=== PATIENT | female | born 1935 | race Caucasian/White ===

== ENCOUNTER 2020-03-26 09:10 | Outpatient (CLI) | payer MEDICARE, OTHER, SELFPAY ==
--- NOTE | 2020-03-26 09:23 | CT_ITS ---
WS: [id number] CT ABDOMEN PELVIS TECHNIQUE: Contrast-enhanced CT of the abdomen and pelvis with coronal and sagittal reformatted image s. CLINICAL INFORMATION: CONSTIPATION/DIARRHEA COMPARISON: DLP: 1754.[address] scans at [facility] use at least one of these dose optimization techniques: automat ed exposure control; mA and/or kV adjustment per patient size (includes targeted exams where dose is matched to clinical indication); or iterative reconstruction. FINDINGS: Liver is normal. Normal portal vein and splenic vein. Normal spleen. Normal GE junction. Subsegmental atelectasis in the lung bases. Splenic artery calcification. Aortic calcification. Adrenal glands ar e normal. Advanced bilateral renal atrophy with bilateral renal cysts. No hydronephrosis. Normal caliber abdominal aorta. No aneurysm. Sigmoid diverticulosis. Scattered stool in the colon. No evidence of small or large bowel obstruction. No free fluid in the abdomen or pelvis. No inguinal ly mphadenopathy. Grade 1 anterolisthesis L5 on S1. Moderate spondylitic changes lumbar spine. Lumbar scoliosis convex left. Advanced degenerative changes right hip with flattening and erosion of the femoral head. CT/CT abdomen pelvis w con* [id number] IMPRESSION: 1. No acute abdominal or pelvic findings. 2. Advanced bilateral renal cortical atrophy with renal cysts. Largest renal c yst in the right measuring 3.1 cm. 3. Sigmoid diverticulosis. No evidence of acute diverticulitis. 4. No abdominal or pelvic lymphadenopathy. 5. No free fluid in the abdomen or pelvis. 6. 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
[2020-03-26] MEDS: iohexol 300 mg/mL 50 mL Btl PO (09:37)
[2020-03-26 10:16] LABS: Blood Urea Nitrogen 33 mg/dL (8-23)
[2020-03-26] MEDS: iodixanol 320 mg/mL 100mL Btl IV (11:57)
== END 2020-03-26 09:11 | disposition home or self-care (01) ==
PROVIDERS: Family Provider Internal Medicine; Visit Provider Internal Medicine Nephrology
DX: K59.00 Constipation, unspecified (principal); R19.7 Diarrhea, unspecified; N26.1 Atrophy of kidney (terminal); Q61.02 Congenital multiple renal cysts; K57.30 Diverticulosis of large intestine without perforation or abscess without bleeding; M16.11 Unilateral primary osteoarthritis, right hip; M85.88 Other specified disorders of bone density and structure, other site
CPT/HCPCS: 36415; 74177; 82565; 84520

== ENCOUNTER 2020-05-18 19:38 | Inpatient (IN) | payer MEDICARE, OTHER, MEDICAID, SELFPAY ==
[2020-05-18 19:44] VITALS: BP 192/95; PULSE 104; RESP 20; TEMP 37.7; O2SAT 89; BMI 39.8
--- NOTE | 2020-05-18 19:44 | XRR_ITS ---
PROCEDURE INFORMATION: Exam: XR Chest, 1 View Exam date and time: 05/18/2020 8:14 PM Age: 84 years old Clinical indication: Chest pain; Patient HX: Chest/abd pain. Nausea; Additional info: Fever TECHNIQUE: Imaging protocol: XR of the chest Views: 1 view. COMPARISON: CR Chest 1 [place] [id number] 02/08/2019 7:33 PM FINDINGS: Lungs: No focal consolidation. No pulmonary edema. Pleural space: No pleural effusion. No pneumothorax. Heart/Mediastinum: Stable moderate enlargement of the cardiac silhouette. Mediastinal contours are unremarkable. Vasculature: Vascular calcifications in the aorta. Bones/joints: Unremarkable for age. Soft tissues: Vascular stents in the visualized right upper arm extending to the right axilla and in the left axilla are redemonstrated. XR/XR chest 1V portable [id number] IMPRESSION: 1. No acute cardiopulmonary process. 2. Incidental/nonacute findings are listed in the report.
--- NOTE | 2020-05-18 19:46 | ED_ITS ---
HPI - Abdominal Pain General: Chief Complaint: Abdominal Pain Stated Complaint: FLU Time Seen by Provider: 05/18/20 19:40 Source: patient and EMS Mode of arrival: EMS Limitations: no limitations History of Present Illness: HPI narrative: 84-year-old female who presents here from long term with fever of 100 there along with abdominal pain. She states she had diverticulitis 1 month ago. States pain started today and is sharp in nature and diffuse. She does not make any urine. She goes to dialysis Monday. She did have dialysis today. She denies any cough. MD elicited complaint: abdominal pain Onset (ago): hour(s) Pain Consistency: constant Location: Diffuse Severity: moderate Quality: cramping Radiation: none Migration to: no migration Exacerbating factors: movement Relieving factors: rest Associated Symptoms: Reports fever(s); Denies dysuria Review of Systems Const: Reports: fever(s) Eyes: Denies: blurry vision or eye discomfort ENMT: Denies: throat pain or dental pain Card: Denies: chest pain Resp: Denies: dyspnea GI: Reports: abdominal pain : Denies: dysuria Musc: Denies: neck pain or back pain Skin/Breast: Denies: rash Neuro: Denies: headache(s) Psych: Denies: depression Jefferson/Lymph: Denies: easy bruising All/Imm: Denies: urticaria Physical Exam Const: COMMON NORMALS: no acute distress, patient oriented x3 and healthy appearing HENMT: COMMON NORMALS: normocephalic and atraumatic HEAD & SCALP: normocephalic and atraumatic Eye: COMMON NORMALS: Equal, round and reactive pupils present and EOMs intact bilaterally PUPIL: Yes Equal, round and reactive pupils present Neck/C-Spine: COMMON NORMALS: full ROM and supple Chest: COMMONS NORMALS: normal inspection of the chest and normal palpation of entire chest wall Resp: COMMON NORMALS: normal respiratory effort, No retractions, No use of accessory muscles and clear to auscultation bilaterally AUSCULTATION: clear to auscultation bilaterally Cardio: COMMON NORMALS: regular rate, regular rhythm and No murmurs present (Cardio) RATE: regular rate RHYTHM: regular rhythm GI: COMMON NORMALS: Normal to inspection, nondistended, normoactive bowel sounds present, Soft to palpation and no masses PALPATION: Yes Soft to palpation and Yes Tenderness to palpation present (GI) (diffuse) Extremity: COMMON NORMALS: normal to inspection and full ROM Neuro: COMMON NORMALS: patient oriented x3, moves all extremities and no focal motor deficits Psych: COMMON NORMALS: mental status grossly normal, Normal thought process present and cooperative THOUGHT PROCESS: Normal thought process present Skin: COMMON NORMALS: no rashes or lesions noted and no wounds GENERAL SKIN EXAM: no rashes or lesions noted Course Vital Signs: Vital signs: Vital Signs Temperature 99.8 F H 05/18/20 19:44 Pulse Rate 80 05/18/20 22:31 Respiratory Rate 19 H 05/18/20 22:31 Blood Pressure 193/80 05/18/20 22:31 Pulse Oximetry 92 05/18/20 22:31 MDM - Abdominal Pain MDM Narrative: Medical decision making narrative: Patient presents here with fever abdominal pain or shortness of breath. Patient CT abdomen here is normal. Patient has a pleural effusions on x-ray. Patient has been requiring oxygen here. Patient's room air sat is 88%. Patient did receive dialysis today. Her BNP is quite elevated. She has history of end-stage renal disease. I spoke to hospitalist will admit for her fever and follow blood cultures. Lab Data: Labs: Lab Results 05/18/20 05/18/20 05/18/20 Range/Units 20:00 20:08 20:08 WBC 10.4 H (4.0-10.0) 10^3/ uL RBC 3.16 L (4.1-5.3) 10^6/u L Hgb 9.4 L (11.5-15.3) g/dL Hct 30.6 L (37.0-47.0) % MCV 96.8 (81-99) fL MCH 29.7 (28.0-34.0) pg MCHC 30.7 (30.0-36.0) g/dL RDW 15.9 H (12.1-15.1) % Plt Count 305 (130-400) 10^3/c mm MPV 10.0 (7.4-10.4) fL Neut % (Auto) 83.0 % Lymph % (Auto) 8.4 % Treasure % (Auto) 6.7 % Eos % (Auto) 0.8 % Baso % (Auto) 0.3 % Neut # (Auto) 8.65 H (1.8-7.7) 10^3/u L Lymph # (Auto) 0.9 (0.8-4.8) 10^3/u L Treasure # (Auto) 0.7 (0.2-0.9) 10^3/u L Eos # (Auto) 0.1 (0.0-0.8) 10^3/u L Baso # (Auto) 0.0 (0.0-0.1) 10^3/u L Nucleated RBC % (a uto) 0 % Nucleated RBCs # 0.0 /100WBC Sodium 136 (136-145) mmol/L Potassium 4.5 (3.5-5.1) mmol/L Chloride 94 L (98-107) mmol/L Carbon Dioxide 28 (22-29) mmol/L Anion Gap 18.5 (5-19) BUN 24 H (8-23) mg/dL Creatinine 4.0 H (0.5-0.9) mg/dL GFR Calculation Not Reportable Glucose 112 (65-115) mg/dL Calculated Osmolal ity 280 L (285-295) mOsm/k g Lactate 1.2 (0.5-2.2) mmol/L Calcium 8.8 (8.5-10.5) mg/dL Total Bilirubin 0.9 (0.15-1.2) mg/dL AST 12 (0-32) U/L ALT 6 (0-33) U/L Alkaline Phosphata se 101 (35-105) IU/L NT-Pro-B Natriuret Pep 11771 H (0-450) pg/mL Total Protein 7.2 (6.6-8.7) g/dL Albumin 3.9 (3.5-5.2) g/dL Globulin 3.3 (1.3-4.6) g/dL Lipase 36 (13-60) U/L SARS-CoV-2 Ag (Rap id) (Negative) 05/18/20 Range/Units 21:06 WBC (4.0-10.0) 10^3/ uL RBC (4.1-5.3) 10^6/u L Hgb (11.5-15.3) g/dL Hct (37.0-47.0) % MCV (81-99) fL MCH (28.0-34.0) pg MCHC (30.0-36.0) g/dL RDW (12.1-15.1) % Plt Count (130-400) 10^3/c mm MPV (7.4-10.4) fL Neut % (Auto) % Lymph % (Auto) % Treasure % (Auto) % Eos % (Auto) % Baso % (Auto) % Neut # (Auto) (1.8-7.7) 10^3/u L Lymph # (Auto) (0.8-4.8) 10^3/u L Treasure # (Auto) (0.2-0.9) 10^3/u L Eos # (Auto) (0.0-0.8) 10^3/u L Baso # (Auto) (0.0-0.1) 10^3/u L Nucleated RBC % (a uto) % Nucleated RBCs # /100WBC Sodium (136-145) mmol/L Potassium (3.5-5.1) mmol/L Chloride (98-107) mmol/L Carbon Dioxide (22-29) mmol/L Anion Gap (5-19) BUN (8-23) mg/dL Creatinine (0.5-0.9) mg/dL GFR Calculation Glucose (65-115) mg/dL Calculated Osmolal ity (285-295) mOsm/k g Lactate (0.5-2.2) mmol/L Calcium (8.5-10.5) mg/dL Total Bilirubin (0.15-1.2) mg/dL AST (0-32) U/L ALT (0-33) U/L Alkaline Phosphata se (35-105) IU/L NT-Pro-B Natriuret Pep (0-450) pg/mL Total Protein (6.6-8.7) g/dL Albumin (3.5-5.2) g/dL Globulin (1.3-4.6) g/dL Lipase (13-60) U/L SARS-CoV-2 Ag (Rap id) Negative (Negative) Imaging Data ^: CXR: Attestation: I personally reviewed and interpreted this imaging study as follows: My impression: no acute abnormality CT Abd/Pel: Radiologist's impression: [address] [place] [address] CT Scan Report Signed Patient: Dacia Kc Unit #: [id number] : [id number] Age/Sex: 84 / F ADM Date: 05/18/20 Loc: ER Room/Bed: Attending Dr: Ordering Provider/Ordering MD: Darline Coleman MD Date of Service: 05/18/20 Procedure(s): CT abdomen pelvis wo con [id number] Accession Number(s): [id number] Report Number: [id number] PROCEDURE INFORMATION: Exam: CT Abdomen And Pelvis Without Contrast Exam date and time: 05/18/2020 7:57 PM Age: 84 years old Clinical indication: Abdominal pain; Generalized; Prior surgery; Surgery date: 6+ months; Surgery type: Hyst, appy, gb; Patient HX: Nh dialysis PT C/O abd pain , fever, nausea TECHNIQUE: Imaging protocol: Computed tomography of the abdomen and pelvis without contrast. Radiation optimization: All CT scans at this facility use at least one of these dose optimization techniques: automated exposure control; mA and/or kV adjustment per patient size (includes targeted exams where dose is matched to clinical indication); or iterative reconstruction. COMPARISON: CT abdomen pelvis w con* [id number] 03/26/2020 11:32 AM RADIATION DOSE METRICS: Total DLP (mGy-cm): 1713.22 FINDINGS: Lungs: Compressive atelectasis in the the right and left lower lobes. Pleural space: Interval development of a small right pleural effusion and a trace left pleural effusion. Heart: Stable moderate enlargement of the visualized portions of the heart. Liver: The liver is unremarkable. Gallbladder and bile ducts: Stable findings consistent with a previous cholecystectomy. No biliary ductal dilatation. Pancreas: The pancreas is unremarkable. No pancreatic ductal dilatation. Spleen: The spleen is unremarkable. Adrenals: The right and left adrenal glands are unremarkable. Kidneys and ureters: Stable severe bilateral renal atrophy. Simple cysts in both right and left kidneys are stable. The largest on the right measures 3.3 cm. The largest on the left measures 2.0 cm. Parenchymal calcifications in the left kidney are stable. The right and left ureters are unremarkable. Stomach and bowel: Numerous diverticula in the sigmoid colon. No evidence for diverticulitis. Fluid within the small bowel without evidence of bowel wall thickening. Appendix: Appendix not definitely visualized. No inflammatory changes in the pericecal region however. Intraperitoneal space: No free intraperitoneal air. No ascites. No loculated fluid collections to suggest an abscess. Vasculature: Moderate atherosclerotic changes in the visualized arteries. No evidence for aortic aneurysm. Lymph nodes: No lymphadenopathy. Bladder: The bladder is incompletely filled, which can limit evaluation. No focal abnormality in the bladder however. Reproductive: Stable changes consistent with a previous hysterectomy. The ovaries are not definitely visualized, not an expected in a postmenopausal female. This may be due to ovarian atrophy. Alternatively, the patient may have had a previous bilateral oophorectomy. Findings are stable. Bones/joints: Bones are markedly osteopenic. Complete bony resorption of the right humeral head with a pseudoarticulation between the superior right acetabulum in the right femoral neck. Small effusion at the right hip joint. Mild degenerative change at the left hip. Mild degenerative changes of the right and left sacroiliac joints. Multilevel degenerative changes of varying severity in the visualized spine. Old, moderate compression deformity of T11. Multilevel degenerative changes of varying severity in the visualized spine. Multilevel foraminal stenosis of varying severity in the visualized spine. Mild spinal canal stenosis at L2-L3 through L4-L5. Osseous findings are stable. Soft tissues: No acute abnormality in the extra-abdominal soft tissues. CT/CT abdomen pelvis wo con [id number] IMPRESSION: 1. Fluid within the small bowel without evidence of bowel wall thickening. This may reflect viral gastroenteritis in the appropriate clinical situation. 2. Interval development of a small right pleural effusion and a trace left pleural effusion. 3. Compressive atelectasis in the the right and left lower lobes. 4. Stable severe bilateral renal atrophy. 5. Sigmoid diverticulosis. No evidence for diverticulitis. 6. Incidental/nonacute findings are listed in the report. Discharge Plan Discharge Patient Disposition: Admitted As Inpatient Clinical Impression: Pleural effusion, Fever, ESRD (end stage renal disease) on dialysis Condition: Stable Referrals: Char Parikh MD [Primary Care Provider] - Coding Level of Care Code ED Environmental Health Nurse for g Fwd Exam Comprehensive
[2020-05-18 20:09] LABS: Basophils % 0.3 %; Eosinophils # 0.1 10^3/uL (0.0-0.8); Eosinophils % 0.8 %; Hematocrit 30.6 % (37.0-47.0); Hemoglobin 9.4 g/dL (11.5-15.3); Lymphocytes # 0.9 10^3/uL (0.8-4.8); Lymphocytes % 8.4 %; Mean Corpuscular HGB Conc 30.7 g/dL (30.0-36.0); Mean Corpuscular Hemoglobin 29.7 pg (28.0-34.0); Mean Corpuscular Volume 96.8 fL (81-99); Monocytes # 0.7 10^3/uL (0.2-0.9); Monocytes % 6.7 %; Neutrophils # 8.65 10^3/uL (1.8-7.7); Nucleated Red Blood Cells % 0 %; Platelet Count 305 10^3/cmm (130-400); Red Blood Count 3.16 10^6/uL (4.1-5.3); Red Cell Distribution Width 15.9 % (12.1-15.1); White Blood Count 10.4 10^3/uL (4.0-10.0)
[2020-05-18 20:31] LABS: Lactate (Lactic Acid level) 1.2 mmol/L (0.5-2.2)
--- NOTE | 2020-05-18 20:41 | PC.NURSE ---
Pt to CT
[2020-05-18 20:42] LABS: Alanine Aminotransferase 6 U/L (0-33); Albumin Level 3.9 g/dL (3.5-5.2); Alkaline Phosphatase 101 IU/L (35-105); Anion Gap 18.5 (5-19); Aspartate Amino Transferase 12 U/L (0-32); Blood Urea Nitrogen 24 mg/dL (8-23); Calcium 8.8 mg/dL (8.5-10.5); Carbon Dioxide 28 mmol/L (22-29); Chloride 94 mmol/L (98-107); Globulin 3.3 g/dL (1.3-4.6); Glucose 112 mg/dL (65-115); Lipase 36 U/L (13-60); NT Pro B Type Natriuretic Pept 18519 pg/mL (0-450); Osmolality Calculated 280 mOsm/kg (285-295); Potassium 4.5 mmol/L (3.5-5.1); Sodium 136 mmol/L (136-145); Total Bilirubin 0.9 mg/dL (0.15-1.2); Total Protein 7.2 g/dL (6.6-8.7)
--- NOTE | 2020-05-18 20:52 | PC.NURSE ---
Patient back in ER room from CT
[2020-05-18] MEDS: ondansetron 2 mg/ML SDV 2 mL 4 MG IVP (21:01)
--- NOTE | 2020-05-18 21:35 | PC.NURSE ---
Amelia KATE from [facility] called ER asking for a patient update. Update given by this nurse.
[2020-05-18 22:00] LABS: SARS Covid-2 Antigen Negative (Negative)
[2020-05-18] MEDS: cefTRIAXone 1,000 MG in sodium chloride 0.9% (plus) 50 ML 100 MG IV (22:29)
[2020-05-18 22:31] VITALS: BP 193/80; PULSE 80; RESP 19; O2SAT 92
--- NOTE | 2020-05-18 22:54 | PM.HP ---
Providers/Chief Complaint Admitting Physician: Tari Goncalves MD Primary Care Provider: Char Parikh MD Chief Complaint: Abdominal pain History of Present Illness Dacia Kc is a 84 year old female with PMHx noted below presents from [place] secondary to noted abdominal discomfort, fever with a temperature of 101F and generally feeling unwell since earlier today. She was able to go to [facility] for dialysis earlier this afternoon but states that she had nausea, received a dose of Zofran but continued to feel sick to her stomach. On her return to the long term she continued to feel unwell, received a second dose of Zofran and on checking her temperature was found to be febrile. She was hypoxic and is currently on 2 L nasal cannula. She states that she is chronically constipated and is on an aggressive bowel regimen and so far that seems to be working well for her. She denies having had any cough, chest tightness or discomfort, vomiting. She does not make any urine at baseline. Follows up with Dr. Garibay once a month. Due to chronic pain issues particularly affecting her lower back she sleeps in a recliner at the long term and tries to keep her legs elevated but they do get swollen from time to time. Prior to the onset of her symptoms she was in her usual state of health. Work-up so far reveals white count of 10.4, hemoglobin of 9.4, normal electrolytes, BUN of 24, creatinine of 4.0, BNP greater than 18,000, lactate of 1.2, chest x-ray is unremarkable though CT scan of the abdomen and pelvis shows bilateral lower lobe atelectasis with trace left and small right pleural effusions, fluid indicative of possible gastroenteritis. She is currently receiving her first dose of ceftriaxone and is pending dose of azithromycin. She is resting comfortably during my assessment in the ER, is hypertensive with a blood pressure of 193/80 with otherwise normal vital signs, saturating at 96% on 2 L nasal cannula. She reports feeling better and her abdominal discomfort has resolved. No nausea currently. Due to concern for infection she will need further treatment hence need for admission. Review of Systems Const: Reports: change in appetite (decreased appetite) and fatigue; Denies: fever(s) or chills Eyes: Denies: change in vision ENMT: Reports: dry mouth Card: Denies: chest pain, swelling of feet/ankles or lightheadedness Resp: Reports: productive cough (green sputum); Denies: dyspnea GI: Denies: abdominal pain, nausea, vomiting, hematemesis or hematochezia : Reports: urinary frequency; Denies: difficulty voiding or dysuria Musc: Denies: back pain Skin/Breast: Denies: rash Neuro: Reports: weakness in extremities; Denies: numbness in extremities Psych: Denies: anxiety Medications/Allergies Allergies Allergy/AdvReac Type Severity Reaction Status Date / Time vancomycin Allergy ADR-Itching Verified 05/18/20 20:03 PFSH Acute PFSH: Medical History (Updated 05/19/20 @ 00:13 by Tari Goncalves MD) Anemia of chronic disease Anxiety Constipation 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 GERD (gastroesophageal reflux disease) HTN (hypertension) Hypothyroidism Morbid obesity Surgical History A-V fistula H/O hemorrhoidectomy H/O: hysterectomy Family History (Updated 05/18/20 @ 23:59 by Tari Goncalves MD) Father Alcoholism /alcohol abuse Mother Hypertension Denies family history of Chronic kidney disease (CKD) Social History (Updated 05/19/20 @ 00:01 by Tari Goncalves MD) Smoking and tobacco status: former smoker Quit status (tobacco): has quit using tobacco Former quit date comment: 40 yrs ago Alcohol intake: current Alcohol intake frequency: holidays/special occasions only Substance/Drug Use: never Housing: Skilled Nursing Marital status: Current occupational status: retired Vitals/I&O/Wt Last Vital Signs Temp 99.8 F H 05/18/20 19:44 Pulse 80 05/18/20 22:31 Resp 19 H 05/18/20 22:31 BP 193/80 05/18/20 22:31 Pulse Ox 92 05/18/20 22:31 Weight last 48 hrs Weight 102.058 kg Physical Exam Const: COMMON NORMALS: no acute distress and patient oriented x3 GENERAL APPEARANCE: cooperative and comfortable NUTRITIONAL APPEARANCE: obese morbidly obese ORIENTATION/CONSCIOUSNESS: Yes awake OTHER: -very pleasant, looks younger than stated age HENMT: COMMON NORMALS: normocephalic, atraumatic, hearing grossly normal bilaterally and moist oral mucous membranes HEAD & SCALP: normocephalic and atraumatic TEETH & GINGIVA: Yes dentures Eye: COMMON NORMALS: Equal, round and reactive pupils present, EOMs intact bilaterally and conjunctivae normal CONJUNCTIVA: Yes conjunctivae normal PUPIL: Yes Equal, round and reactive pupils present Neck/C-Spine: COMMON NORMALS: full ROM GENERAL: Yes normal visual inspection and Yes trachea midline Resp: COMMON NORMALS: normal respiratory effort, No retractions, No use of accessory muscles and clear to auscultation bilaterally EFFORT & INSPECTION: Yes able to speak in complete sentences, Yes symmetric chest movement and No tachypneic AUSCULTATION: clear to auscultation bilaterally OTHER: -intermittently hypoxic, on 2 L NC Cardio: COMMON NORMALS: regular rate, regular rhythm, S1 normal heart sound present, S2 normal heart sound present and No murmurs present (Cardio) RATE: regular rate RHYTHM: regular rhythm HEART SOUNDS: S1 normal heart sound present and S2 normal heart sound present GI: COMMON NORMALS: Normal to inspection, nondistended, normoactive bowel sounds present, Soft to palpation and non-tender INSPECTION: Yes central obesity PALPATION: Yes Soft to palpation Extremity: COMMON NORMALS: normal to inspection and full ROM NARRATIVE EXTREMITY EXAM: -AV fistula on R, palpable thrill GENERAL: Yes edema (1+ pitting edema of bilateral LEs) Neuro: COMMON NORMALS: patient oriented x3, moves all extremities, no focal motor deficits and no sensory deficits noted OTHER: -ambulates minimally with walker Psych: COMMON NORMALS: mental status grossly normal, Normal thought process present, cooperative, normal affect and speech normal SPEECH: Yes normal speech THOUGHT PROCESS: Normal thought process present Skin: COMMON NORMALS: no rashes or lesions noted, no jaundice, no petechiae and no mottling GENERAL SKIN EXAM: no rashes or lesions noted Data : 05/18/20 20:00 05/18/20 20:08 Micro: Microbiology 05/18/20 21:21 Blood Culture - Preliminary Blood SPECIMEN COLLECTED 05/18/20 20:08 Blood Culture - Preliminary Blood SPECIMEN COLLECTED A&P Assessment and plan (1) Fever: -Temp of 101 F prior to coming to ED, low grade temp of 99.8 F here -noted compressive atelectasis in bilateral lower lobes on CT -Noted hypoxia and currently is requiring supplemental oxygen support, mild leukocytosis -Received dose of ceftriaxone and azithromycin in ER, will continue treatment due to clinical suspicion for infection -Continue supplemental oxygen support as needed; not oxygen dependent at baseline. -Continue to monitor respiratory status -Repeat labs in a.m. Status: Acute Qualifiers: Fever type: unspecified Qualified Code(s): R50.9 - Fever, unspecified (2) Pleural effusion: -Noted small right pleural effusion and trace left pleural effusion on CT, could be reactive secondary to infection Status: Acute (3) ESRD (end stage renal disease) on dialysis: -access: AV fistula -on , , schedule for HD, last session was 05/18 -will need Nephrology consult for HD while here Status: Chronic (4) Diabetes mellitus: -Seems to be diet controlled -Check A1c as no baseline available Status: Chronic Qualifiers: Diabetes mellitus type: type 2 Diabetes mellitus superintendent marine oil terminal insulin use: without custodial use Diabetes mellitus complication status: with kidney complications Chronic kidney disease stage: on chronic dialysis Diabetes mellitus complication detail: with chronic kidney disease Qualified Code(s): E11.22 - Type 2 diabetes mellitus with diabetic chronic kidney disease; N18.6 - End stage renal disease; Z99.2 - Dependence on renal dialysis (5) Constipation: -resume bowel regimen Status: Chronic Qualifiers: Constipation type: unspecified constipation type Qualified Code(s): K59.00 - Constipation, unspecified (6) Morbid obesity: -BMI-40 kg/m2 Status: Chronic (7) Hypothyroidism: -resume levothyroxine Status: Chronic Qualifiers: Hypothyroidism type: unspecified Qualified Code(s): E03.9 - Hypothyroidism, unspecified (8) Anemia of chronic disease: -baseline Hg appears to be around 11 -monitor H/H Status: Chronic (9) HTN (hypertension): -monitor vital signs, hypertensive currently -resume oral antihypertensives Status: Chronic Qualifiers: Hypertension type: essential hypertension Qualified Code(s): I10 - Essential (primary) hypertension (10) GERD (gastroesophageal reflux disease): -resume PPI Status: Chronic Qualifiers: Esophagitis presence: esophagitis presence not specified Qualified Code(s): K21.9 - Gastro-esophageal reflux disease without esophagitis (11) Anxiety: Status: Chronic Additional A&P Information -Chronic pain, on chronic narcotics including fentanyl patch -Abdominal pain, now resolved, noted fluid within the small bowel, no diverticulitis, no abscess. On PPI -renal dialysis diet -GI ppx with PPI -DVT ppx with heparin -[facility] -Code status: DNR/DNI, discussed with patient at bedside Attestations Medical Necessity Statement*: Dacia Kc's hospital stay will require greater than 2 midnights for treatment of pneumonia, on IV antibiotics, supplemental oxygen support due to noted hypoxia. Time Spent in Patient Care: Greater than 35 minutes (>than 50% of time spent in counselling and/or direct pt care on unit). Coding Level of Care Code Acute Customs Examiner for Chg Fwd Diagnoses Fever R50.9 Fever type: unspecified Pleural effusion J90 ESRD (end stage renal disease) on dialysis N18.6; Z99.2 Diabetes mellitus E11.22; N18.6; Z99.2 Diabetes mellitus type: type 2 Diabetes mellitus superintendent marine oil terminal insulin use: without superintendent marine oil terminal use Diabetes mellitus complication status: with kidney complications Chronic kidney disease stage: on chronic dialysis Diabetes mellitus complication detail: with chronic kidney disease Constipation K59.00 Constipation type: unspecified constipation type Morbid obesity E66.01 Hypothyroidism E03.9 Hypothyroidism type: unspecified Anemia of chronic disease D63.8 HTN (hypertension) I10 Hypertension type: essential hypertension GERD (gastroesophageal reflux disease) K21.9 Esophagitis presence: esophagitis presence not specified Anxiety F41.9
[2020-05-18] MEDS: azithromycin 500 MG in sodium chloride 0.9% 250 ML 250 MG IV (23:04)
[2020-05-18 23:15] VITALS: BP 189/79; PULSE 80; RESP 21; O2SAT 96
[2020-05-18 23:57] VITALS: BP 173/80; PULSE 82; RESP 20; TEMP 36.9; O2SAT 100
[2020-05-19] MEDS: acetaminophen 325 mg Tablet 650 MG PO ×2 (00:04→05:31)
[2020-05-19] MEDS: TRAMadol 50 mg Tablet PO ×3 (00:08→13:05)
[2020-05-19] MEDS: heparin 5,000 unit/mL INJ 1 mL 5000 UNIT SUBCUT ×2 (00:08→07:59)
[2020-05-19 03:25] VITALS: BP 147/77; PULSE 69; RESP 16; TEMP 36.6; O2SAT 96
[2020-05-19 04:50] LABS: Basophils % 0.3 %; Eosinophils # 0.2 10^3/uL (0.0-0.8); Eosinophils % 2.2 %; Hematocrit 26.5 % (37.0-47.0); Hemoglobin 7.8 g/dL (11.5-15.3); Lymphocytes # 0.9 10^3/uL (0.8-4.8); Lymphocytes % 12.2 %; Mean Corpuscular HGB Conc 29.4 g/dL (30.0-36.0); Mean Corpuscular Volume 98.5 fL (81-99); Mean Platelet Volume 9.9 fL (7.4-10.4); Monocytes # 0.6 10^3/uL (0.2-0.9); Monocytes % 8.4 %; Neutrophils # 5.63 10^3/uL (1.8-7.7); Neutrophils % 76.4 %; Nucleated Red Blood Cells % 0 %; Platelet Count 257 10^3/cmm (130-400); Red Blood Count 2.69 10^6/uL (4.1-5.3); Red Cell Distribution Width 16.2 % (12.1-15.1); White Blood Count 7.4 10^3/uL (4.0-10.0)
[2020-05-19 05:09] LABS: Anion Gap 15.5 (5-19); Blood Urea Nitrogen 30 mg/dL (8-23); Calcium 7.9 mg/dL (8.5-10.5); Carbon Dioxide 31 mmol/L (22-29); Chloride 98 mmol/L (98-107); Glucose 96 mg/dL (65-115); Osmolality Calculated 287 mOsm/kg (285-295); Potassium 4.5 mmol/L (3.5-5.1); Sodium 140 mmol/L (136-145)
[2020-05-19 07:03] LABS: Estmated Average Glucose 82; Hemoglobin A1C 4.5 % (4.0-6.0)
[2020-05-19 07:18] VITALS: BP 146/76; PULSE 67; RESP 18; TEMP 36.6
[2020-05-19 08:00] VITALS: BP 146/76
[2020-05-19] MEDS: aspirin 81 mg EC Tablet PO (08:00)
[2020-05-19] MEDS: pantoprazole DR 40 mg Tablet PO (08:00)
[2020-05-19] MEDS: cholecalciferol (vitamin D3) 1,000 unit Tablet 1000 UNIT PO (08:00)
[2020-05-19] MEDS: levothyroxine 50 mcg Tablet PO (08:00)
[2020-05-19] MEDS: losartan 50 mg Tablet PO (08:00)
[2020-05-19] MEDS: sevelamer 800 mg Tablet PO ×2 (08:00→12:27)
[2020-05-19] MEDS: amlodipine 10 mg Tablet PO (08:00)
--- NOTE | 2020-05-19 09:18 | PC.NURSE ---
Pt tearful upon rounding. This nurse asked pt if there was anything we could do to make her more comfortable. Offered recliner to which pt replied, I can't sit in a recliner. I need a lift chair. Informed pt that a lift chair was available for her use. Pt declined lift chair at this time.
[2020-05-19] MEDS: polyethylene glycol 3350 Pkt 17 gm PO (09:20)
--- NOTE | 2020-05-19 10:30 | PC.NURSE ---
Staff went into patients room around 1030 this morning and the patient declined getting up.
[2020-05-19 12:00] VITALS: BP 176/74; PULSE 59; RESP 18; TEMP 36.9; O2SAT 94
[2020-05-19 15:00] VITALS: BP 166/66; PULSE 61; RESP 18; TEMP 37.2; O2SAT 95
--- NOTE | 2020-05-19 16:26 | PC.NURSE ---
Bath was declined by the patient at 1030 the same time that the patient denied getting up to the chair.
[2020-05-19 17:47] VITALS: BP 166/66; PULSE 61; RESP 18; TEMP 37.2; O2SAT 95
--- NOTE | 2020-05-19 19:31 | P.DS_ITS ---
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 use: without truck terminal manager use Diabetes mellitus complication status: with kidney complications Diabetes mellitus complication detail: with chronic kidney disease Chronic kidney disease stage: on chronic dialysis Qualified Code(s): E11.22 - Type 2 diabetes mellitus with diabetic chronic kidney disease; N18.6 - End stage renal disease; Z99.2 - Dependence on renal dialysis (5) Constipation: Status: Chronic Qualifiers: Constipation type: unspecified constipation type Qualified Code(s): K59.00 - Constipation, unspecified (6) Morbid obesity: Status: Chronic (7) Hypothyroidism: Status: Chronic Qualifiers: Hypothyroidism type: unspecified Qualified Code(s): E03.9 - Hypothyroidism, unspecified (8) Anemia of chronic disease: Status: Chronic (9) HTN (hypertension): Status: Chronic Qualifiers: Hypertension type: essential hypertension Qualified Code(s): I10 - Essential (primary) hypertension (10) GERD (gastroesophageal reflux disease): Status: Chronic Qualifiers: Esophagitis presence: esophagitis presence not specified Qualified Code(s): K21.9 - Gastro-esophageal reflux disease without esophagitis (11) Anxiety: Status: Chronic Reason for Visit Reason for Visit: Abdominal pain Hospital Course Hospital Course: Pleasant 84-year-old lady with ESRD, undergoing hemodialysis 3 times weekly on MWF, diabetes and other comorbidities was admitted last night after episode of fever, abdominal pain, not feeling well. While in the hospital received treatment for pneumonia with bibasilar atelectasis or infiltrates noted on CT abdomen pelvis, with noted small right pleural effusion and trace on the left, with otherwise unremarkable chest x-ray, and with noted fluid within small bowel without bowel thickening, possibly viral gastroenteritis. Incidentally also noted chronic compression fracture T11, multilevel degenerative changes, mild spinal canal stenosis in line with her chronic back pain symptoms. She had no diarrhea, and otherwise while in the hospital reported feeling significantly better. Had no further abdominal pain. Tolerated oral intake. She was requiring minimum oxygen, but weaned off to room air and did well with that. She remained afebrile. Breathing was comfortable. Was noted to have some mild decline in all cell lines which appears may have been dilutional after receiving multiple infusions with hemoglobin down to 7.8 from 9.4 WBC down to 7.4 from 10.4 and platelets down to 257 from 305. She had no outward bleeding. No ongoing signs of sepsis. She was adamant that she did not want to stay in the hospital any further as she was doing well, and was requesting to be discharged to [facility] today, to the nurse stating that she would call her own ride if she can. She said that she could not spend another night in the hospital bed, but when offered declined to try a different bed or a chair. Given she is otherwise been stable, without signs of ongoing sepsis, no recurrence of fever, tolerating oral diet, no abdominal pain or diarrhea, she was discharged with a course of antibiotic for pneumonia. COVID-19 rapid testing for antigen was negative on admission. Her blood culture so far has been negative in the hospital, but final results will need to be followed up. Similarly please also follow-up her blood counts to make sure that they stabilize in addition to her other chronic medical conditions. Physical Exam Const: COMMON NORMALS: no acute distress, patient oriented x3 and alert NUTRITIONAL APPEARANCE: obese ORIENTATION/CONSCIOUSNESS: Yes awake HENMT: COMMON NORMALS: oropharynx normal Neck/C-Spine: COMMON NORMALS: no JVD Resp: COMMON NORMALS: normal respiratory effort and clear to auscultation bilaterally AUSCULTATION: clear to auscultation bilaterally Cardio: COMMON NORMALS: no JVD, regular rhythm, S1 normal heart sound present, S2 normal heart sound present and No murmurs present (Cardio) RHYTHM: regular rhythm HEART SOUNDS: S1 normal heart sound present and S2 normal heart sound present GI: COMMON NORMALS: Normal to inspection, nondistended, normoactive bowel sounds present, Soft to palpation and non-tender PALPATION: Yes Soft to palpation Extremity: COMMON NORMALS: no joint enlargement and no pedal edema OTHER: Right arm fistula. Neuro: COMMON NORMALS: patient oriented x3 and moves all extremities SENSORIUM/ORIENTATION: Yes alert Skin: COMMON NORMALS: no rashes or lesions noted GENERAL SKIN EXAM: no rashes or lesions noted Discharge Data Data Completed and Pending: Completed Studies During Hospitalization Category Date Time Status CT abdomen pelvis wo con [id number] Urge nt Cat Scan 05/18/20 19:44 Completed XR chest 1V francisco ble [id number] Urgent Exams 05/18/20 19:44 Completed Pending at discharge Category Date Time Status Blood Culture Sta t Lab 05/18/20 21:21 Results Labs from last 24 hours 05/19/20 05/19/20 05/19/20 04:41 04:41 04:41 WBC 7.4 RBC 2.69 L Hgb 7.8 L Hct 26.5 L MCV 98.5 MCH 29.0 MCHC 29.4 L RDW 16.2 H Plt Count 257 MPV 9.9 Neut % (Auto) 76.4 Lymph % (Auto) 12.2 Wolfe % (Auto) 8.4 Eos % (Auto) 2.2 Baso % (Auto) 0.3 Neut # (Auto) 5.63 Lymph # (Auto) 0.9 Wolfe # (Auto) 0.6 Eos # (Auto) 0.2 Baso # (Auto) 0.0 Nucleated RBC % (a uto) 0 Nucleated RBCs # 0.0 Sodium 140 Potassium 4.5 Chloride 98 Carbon Dioxide 31 H Anion Gap 15.5 BUN 30 H Creatinine 4.8 H GFR Calculation Not Reportable Glucose 96 Estimat Average Gl ucose 82 Hemoglobin A1c 4.5 Calculated Osmolal ity 287 Lactate Calcium 7.9 L Total Bilirubin AST ALT Alkaline Phosphata se NT-Pro-B Natriuret Pep Total Protein Albumin Globulin Lipase SARS-CoV-2 Ag (Rap id) 05/18/20 05/18/20 05/18/20 21:06 20:08 20:08 WBC RBC Hgb Hct MCV MCH MCHC RDW Plt Count MPV Neut % (Auto) Lymph % (Auto) Wolfe % (Auto) Eos % (Auto) Baso % (Auto) Neut # (Auto) Lymph # (Auto) Wolfe # (Auto) Eos # (Auto) Baso # (Auto) Nucleated RBC % (a uto) Nucleated RBCs # Sodium 136 Potassium 4.5 Chloride 94 L Carbon Dioxide 28 Anion Gap 18.5 BUN 24 H Creatinine 4.0 H GFR Calculation Not Reportable Glucose 112 Estimat Average Gl ucose Hemoglobin A1c Calculated Osmolal ity 280 L Lactate 1.2 Calcium 8.8 Total Bilirubin 0.9 AST 12 ALT 6 Alkaline Phosphata se 101 NT-Pro-B Natriuret Pep 33627 H Total Protein 7.2 Albumin 3.9 Globulin 3.3 Lipase 36 SARS-CoV-2 Ag (Rap id) Negative 05/18/20 20:00 WBC 10.4 H RBC 3.16 L Hgb 9.4 L Hct 30.6 L MCV 96.8 MCH 29.7 MCHC 30.7 RDW 15.9 H Plt Count 305 MPV 10.0 Neut % (Auto) 83.0 Lymph % (Auto) 8.4 Wolfe % (Auto) 6.7 Eos % (Auto) 0.8 Baso % (Auto) 0.3 Neut # (Auto) 8.65 H Lymph # (Auto) 0.9 Wolfe # (Auto) 0.7 Eos # (Auto) 0.1 Baso # (Auto) 0.0 Nucleated RBC % (a uto) 0 Nucleated RBCs # 0.0 Sodium Potassium Chloride Carbon Dioxide Anion Gap BUN Creatinine GFR Calculation Glucose Estimat Average Gl ucose Hemoglobin A1c Calculated Osmolal ity Lactate Calcium Total Bilirubin AST ALT Alkaline Phosphata se NT-Pro-B Natriuret Pep Total Protein Albumin Globulin Lipase SARS-CoV-2 Ag (Rap id) Vitals: Last Vital Signs Temp 98.9 F 05/19/20 17:47 Pulse 61 05/19/20 17:47 Resp 18 05/19/20 17:47 BP 166/66 05/19/20 17:47 Pulse Ox 95 05/19/20 17:47 Discharge Plan Discharge Patient Disposition: Xfer [facility] Condition: Stable Prescriptions: New levofloxacin 750 mg tablet 750 mg PO DAILY 6 Days Qty: 6 RF: 0 Continued losartan 50 mg Tablet 50 mg PO DAILY RF: 0 cyclobenzaprine 10 mg Tablet 10 mg PO TID RF: 0 senna 8.6 mg Tablet 8.6 mg PO BEDTIME RF: 0 ChlorTabs 4 mg Tablet 4 mg PO DAILY RF: 0 ChlorTabs 4 mg Tablet 4 mg PO PRN PRN (Reason: Allergy Symptoms) RF: 0 Zofran 4 mg Tablet 4 mg PO Q6H PRN (Reason: Nausea And Vomiting) RF: 0 aspirin 81 mg Tablet,Delayed Release (Dr/Ec) 81 mg PO DAILY RF: 0 tramadol 50 mg Tablet 50 mg PO Q6H RF: 0 Mobic 7.5 mg Tablet 7.5 mg PO DAILY RF: 0 amlodipine 10 mg Tablet 10 mg PO BEDTIME RF: 0 levothyroxine 50 mcg Tablet 50 mcg PO DAILY RF: 0 Colace 100 mg Capsule 100 mg PO BID RF: 0 Renal Caps 1 mg Capsule 1 cap PO DAILY RF: 0 Miralax 17 gram/dose Powder 17 g PO DAILY RF: 0 Culturelle 10 billion cell Capsule 1 cap PO DAILY RF: 0 Vitamin D3 25 mcg (1,000 unit) Capsule 25 mcg PO DAILY RF: 0 Prilosec OTC 20 mg Tablet,Delayed Release (Dr/Ec) 20 mg PO DAILY RF: 0 acetaminophen 325 mg Capsule 325 mg PO Q4H PRN (Reason: Pain, Mild) RF: 0 Renvela 800 mg Tablet 800 mg PO BID RF: 0 Renvela 800 mg Tablet 800 mg PO TID RF: 0 fentanyl 37.5 mcg/hour Patch 72 Hour 1 patch TRANSDERMAL Q72H RF: 0 Discharge Orders: Discharge Order (Routine); Ordered 05/19/20 Ordered By: Will Gomes Referrals: Your, vice president quality improvement [Other] [facility] [Outside] Char Parikh MD [Primary Care Provider] - 4-7 days Discharge Diet: Usual diet Discharge Activity: Increase activity as tolerated Patient Instructions: Levofloxacin (By mouth) Activity Restrictions/Additional Instructions: Wean down slowly off of nasal cannula oxygen 2 L/min. Repeat chest x-ray in 4 weeks to confirm resolution of pneumonia. Please follow-up final blood culture results. Preliminary results have been negative. If any worsening condition, worsening shortness of breath, chest pain, persistent high fevers despite antibiotic treatment, abdominal pain, development of diarrhea, or other abnormal symptoms, please return to ER. Continue hemodialysis as previously. Discharge Date/Time: 05/19/20 16:48 Discharge Attestations Time Spent in Discharge Care*: greater than 30 min Quality Metrics Clinical Quality Measures During this hospital stay, did patient experience: None Coding Level of Care Code Acute Packaging Supervisor for Kasi [place]ague Diagnoses Fever R50.9 Fever type: unspecified Pleural effusion J90 ESRD (end stage renal disease) on dialysis N18.6; Z99.2 Diabetes mellitus E11.22; N18.6; Z99.2 Diabetes mellitus type: type 2 Diabetes mellitus intermediate insulin use: without truck terminal manager use Diabetes mellitus complication status: with kidney complications Diabetes mellitus complication detail: with chronic kidney disease Chronic kidney disease stage: on chronic dialysis Constipation K59.00 Constipation type: unspecified constipation type Morbid obesity E66.01 Hypothyroidism E03.9 Hypothyroidism type: unspecified Anemia of chronic disease D63.8 HTN (hypertension) I10 Hypertension type: essential hypertension GERD (gastroesophageal reflux disease) K21.9 Esophagitis presence: esophagitis presence not specified Anxiety F41.9
== END 2020-05-19 16:48 | disposition skilled nursing facility (03) | DRG 193 ==
LOC: ER 22:56 → MEDSURG 22:58
PROVIDERS: Emergency Medicine; Admitting Provider Family Medicine; Emergency Provider Family Medicine; PCP Internal Medicine; Visit Provider Internal Medicine
DX: J18.9 Pneumonia, unspecified organism (principal); N18.6 End stage renal disease; I12.0 Hypertensive chronic kidney disease with stage 5 chronic kidney disease or end stage renal disease; Z68.41 Body mass index [BMI] 40.0-44.9, adult; J90 Pleural effusion, not elsewhere classified; K59.09 Other constipation; E11.22 Type 2 diabetes mellitus with diabetic chronic kidney disease; Z99.2 Dependence on renal dialysis; D63.1 Anemia in chronic kidney disease; F41.9 Anxiety disorder, unspecified; K21.9 Gastro-esophageal reflux disease without esophagitis; E03.9 Hypothyroidism, unspecified; E66.01 Morbid (severe) obesity due to excess calories; Z87.891 Personal history of nicotine dependence; G89.29 Other chronic pain; M51.34 Other intervertebral disc degeneration, thoracic region; Z79.891 Long term (current) use of opiate analgesic; Z66 Do not resuscitate; Z79.82 Long term (current) use of aspirin; A08.4 Viral intestinal infection, unspecified; R09.02 Hypoxemia
CPT/HCPCS: 12345; 36415; 71045; 74176; 80048; 80053; 83036; 83605; 83690; 83880; 85025; 87040; 87426; 96372; 96375; 99282; J0456; J0696; J1644; J2405; J7050

== ENCOUNTER 2020-06-12 17:44 | Emergency (ER) | payer MEDICARE, OTHER, MEDICAID, SELFPAY ==
[2020-06-12] VITALS (7 sets, daily range): BP systolic 161–192; BP diastolic 48–86; PULSE 77–82; RESP 14–20; TEMP 37.1; O2SAT 92–98; BMI 37.2
--- NOTE | 2020-06-12 17:47 | XRR_ITS ---
PROCEDURE INFORMATION: Exam: XR Right Hip with Pelvis when Performed Exam date and time: 06/12/2020 7:12 PM Age: 84 years old Clinical indication: Injury or trauma; Fall; Blunt trauma (contusions or hematomas); Right; Hip TECHNIQUE: Imaging protocol: XR Right hip with pelvis when performed. Views: 1 view. COMPARISON: CT abdomen pelvis wo con [id number] 05/18/2020 8:42 PM FINDINGS: Bones/joints: Osteoporosis. No grossly visible acute osseous abnormality. 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 Soft tissues: Heavy body habitus. XR/XR hip RT 2-3V wo/w pel* [id number] IMPRESSION: No visible acute osseous abnormality.
--- NOTE | 2020-06-12 17:49 | XRR_ITS ---
PROCEDURE INFORMATION: Exam: XR Right Knee Exam date and time: 06/12/2020 7:14 PM Age: 84 years old Clinical indication: Injury or trauma; Fall; Blunt trauma; Knee; Right TECHNIQUE: Imaging protocol: XR Right knee. Views: 3 views. COMPARISON: No relevant prior studies available. FINDINGS: Bones/joints: Osteoporosis. No grossly visible fracture, subluxation, or dislocation. Potential small joint effusion. Single cross-table lateral image of the right knee only. Soft tissues: Muscular atrophy. Vasculature: Arteriosclerosis. XR/XR knee RT 3V* [id number] IMPRESSION: Potential small joint effusion.
--- NOTE | 2020-06-12 17:50 | ECG_ITS ---
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 Measurements Intervals [place] Rate: 75 P: 78 [place]: 145 QRS: -47 QRSD: 141 T: 15 QT: 427 QTc: 478 Interpretive Statements SINUS RHYTHM RIGHT BUNDLE BRANCH BLOCK [120+ ms QRS DURATION, UPRIGHT V1, 40+ ms S IN I/aVL/V4/V5/V6] LEFT ANTERIOR FASCICULAR BLOCK [QRS AXIS <= -45, QR IN I, RS IN II] Compared to ECG 02/08/2019 19:10:59 Left anterior fascicular block now present Sinus bradycardia no longer present Electronically Signed On 06-12-2020 20:39:16 CDT by Yumiko Weems M.D. [email or web address]
--- NOTE | 2020-06-12 18:13 | W.ED.FALL ---
HPI - Fall General: Chief Complaint: Fall Stated Complaint: fall Time Seen by Provider: 06/12/20 17:47 Source: patient and EMS Mode of arrival: EMS Limitations: no limitations History of Present Illness: HPI Narrative: 84-year-old female who states she had a [facility]. Patient's had right leg and hip pain since then. 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 Patient states that her pain is much worse with movement. Denies any head injury. Denies any back pain. Associated symptoms-after fall: Denies abdominal pain, chest pain or headache(s) Review of Systems Const: Denies: fever(s), chills, body aches or change in appetite Eyes: Denies: blurry vision or eye discomfort ENMT: Denies: throat pain or dental pain Card: Denies: chest pain Resp: Denies: dyspnea GI: Denies: abdominal pain, nausea, vomiting or diarrhea : Denies: dysuria Musc: Reports: extremity pain Skin/Breast: Denies: rash Neuro: Denies: headache(s) Psych: Denies: depression [place]/Lymph: Denies: easy bruising All/Imm: Denies: urticaria PFSH ED PFSH: Medical History (Updated 06/12/20 @ 22:17 by Darline Coleman MD) Anemia of chronic disease Anxiety Constipation 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 GERD (gastroesophageal reflux disease) HTN (hypertension) Hypothyroidism Morbid obesity Surgical History A-V fistula H/O hemorrhoidectomy H/O: hysterectomy Family History (Updated 05/18/20 @ 23:59 by Tari Goncalves MD) Father Alcoholism /alcohol abuse Mother Hypertension Denies family history of Chronic kidney disease (CKD) Social History (Updated 05/19/20 @ 00:01 by Tari Goncalves MD) Smoking and tobacco status: former smoker Quit status (tobacco): has quit using tobacco Former quit date comment: 40 yrs ago Alcohol intake: current Alcohol intake frequency: holidays/special occasions only Housing: [facility] Marital status: Current occupational status: retired Physical Exam Const: COMMON NORMALS: no acute distress, patient oriented x3 and healthy appearing HENMT: COMMON NORMALS: normocephalic and atraumatic HEAD & SCALP: normocephalic and atraumatic Eye: COMMON NORMALS: Equal, round and reactive pupils present and EOMs intact bilaterally PUPIL: Yes Equal, round and reactive pupils present Neck/C-Spine: COMMON NORMALS: full ROM and supple Chest: COMMONS NORMALS: normal inspection of the chest and normal palpation of entire chest wall Resp: COMMON NORMALS: normal respiratory effort, No retractions, No use of accessory muscles and clear to auscultation bilaterally AUSCULTATION: clear to auscultation bilaterally Cardio: COMMON NORMALS: regular rate, regular rhythm and No murmurs present (Cardio) RATE: regular rate RHYTHM: regular rhythm GI: COMMON NORMALS: Normal to inspection, nondistended, normoactive bowel sounds present, Soft to palpation, non-tender and no masses PALPATION: Yes Soft to palpation Extremity: NARRATIVE EXTREMITY EXAM: Tenderness over right hip with painful range of motion. Neuro: COMMON NORMALS: patient oriented x3, moves all extremities and no focal motor deficits Psych: COMMON NORMALS: mental status grossly normal, Normal thought process present and cooperative THOUGHT PROCESS: Normal thought process present Skin: COMMON NORMALS: no rashes or lesions noted and no wounds GENERAL SKIN EXAM: no rashes or lesions noted Course Vital Signs: Vital signs: Vital Signs Temperature 98.7 F 06/12/20 17:49 Pulse Rate 82 06/12/20 21:15 Respiratory Rate 16 06/12/20 22:01 Blood Pressure 178/65 06/12/20 22:01 Pulse Oximetry 97 06/12/20 22:01 MDM - Fall MDM Narrative: Medical decision making narrative: Patient presents here from prison with a fall. X-rays and CT of hip showed no acute fracture. 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 Patient is well-appearing otherwise here. Patient is typically nonweightbearing at the prison except for transfers. I informed her to be completely nonweightbearing until her pain is resolved. She is to follow-up with PCP. We will place her on Percocet at prison. She is stable for discharge. Lab Data: Labs: Lab Results 06/12/20 06/12/20 06/12/20 Range/Units 18:13 18:13 18:13 WBC 7.7 (4.0-10.0) 10^3/ uL RBC 3.21 L (4.1-5.3) 10^6/u L Hgb 9.2 L (11.5-15.3) g/dL Hct 30.6 L (37.0-47.0) % MCV 95.3 (81-99) fL MCH 28.7 (28.0-34.0) pg MCHC 30.1 (30.0-36.0) g/dL RDW 16.7 H (12.1-15.1) % Plt Count 315 (130-400) 10^3/c mm MPV 9.9 (7.4-10.4) fL Neut % (Auto) 79.0 % Lymph % (Auto) 9.6 % [place] % (Auto) 7.8 % Eos % (Auto) 1.3 % Baso % (Auto) 0.1 % Neut # (Auto) 6.05 (1.8-7.7) 10^3/u L Lymph # (Auto) 0.7 L (0.8-4.8) 10^3/u L [place] # (Auto) 0.6 (0.2-0.9) 10^3/u L Eos # (Auto) 0.1 (0.0-0.8) 10^3/u L Baso # (Auto) 0.0 (0.0-0.1) 10^3/u L Nucleated RBC % (a uto) 0 % Nucleated RBCs # 0.0 /100WBC APTT 36.4 (23.9-36.7) SECO NDS Sodium 137 (136-145) mmol/L Potassium 3.8 (3.5-5.1) mmol/L Chloride 94 L (98-107) mmol/L Carbon Dioxide 26 (22-29) mmol/L Anion Gap 20.8 H (5-19) BUN 34 H (8-23) mg/dL Creatinine 6.2 H* (0.5-0.9) mg/dL GFR Calculation Not Reportable Glucose 154 H (65-115) mg/dL Calculated Osmolal ity 295 (285-295) mOsm/k g Calcium 9.0 (8.5-10.5) mg/dL Total Bilirubin 0.4 (0.15-1.2) mg/dL AST 26 (0-32) U/L ALT < 5 (0-33) U/L Alkaline Phosphata se 91 (35-105) IU/L Total Protein 6.8 (6.6-8.7) g/dL Albumin 3.9 (3.5-5.2) g/dL Globulin 2.9 (1.3-4.6) g/dL Imaging Data^: X-ray right knee: Radiologist's impression: [place] [address] XRay Report Signed Patient: Dacia Kc Unit #: [id number] : 1935 Age/Sex: 84 / F ADM Date: 06/12/20 Loc: ER Room/Bed: Attending Dr: Ordering Provider/Ordering MD: Darline Coleman MD Date of Service: 06/12/20 Procedure(s): XR knee RT 3V* [id number] Accession Number(s): [id number] Report Number: [id number] PROCEDURE INFORMATION: Exam: XR Right Knee Exam date and time: 06/12/2020 7:14 PM Age: 84 years old Clinical indication: Injury or trauma; Fall; Blunt trauma; Knee; Right TECHNIQUE: Imaging protocol: XR Right knee. Views: 3 views. COMPARISON: No relevant prior studies available. FINDINGS: Bones/joints: Osteoporosis. No grossly visible fracture, subluxation, or dislocation. Potential small joint effusion. Single cross-table lateral image of the right knee only. Soft tissues: Muscular atrophy. Vasculature: Arteriosclerosis. XR/XR knee RT 3V* [id number] IMPRESSION: Potential small joint effusion. Other Xray: Radiologist's impression: [place] [address] XRay Report Signed Patient: Dacia Kc Unit #: [id number] : 1935 Age/Sex: 84 / F ADM Date: 06/12/20 Loc: ER Room/Bed: Attending Dr: Ordering Provider/Ordering MD: Darline Coleman MD Date of Service: 06/12/20 Procedure(s): XR hip RT 2-3V wo/w pel* [id number] Accession Number(s): [id number] Report Number: [id number] PROCEDURE INFORMATION: Exam: XR Right Hip with Pelvis when Performed Exam date and time: 06/12/2020 7:12 PM Age: 84 years old Clinical indication: Injury or trauma; Fall; Blunt trauma (contusions or hematomas); Right; Hip TECHNIQUE: Imaging protocol: XR Right hip with pelvis when performed. Views: 1 view. COMPARISON: CT abdomen pelvis wo con [id number] 05/18/2020 8:42 PM FINDINGS: Bones/joints: Osteoporosis. No grossly visible acute osseous abnormality. 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 Soft tissues: Heavy body habitus. XR/XR hip RT 2-3V wo/w pel* [id number] IMPRESSION: No visible acute osseous abnormality. Dictated By: Duncan Cervantes ct r hip: Attestation: I personally reviewed and interpreted this imaging study as follows: Radiologist's impression: [place] [address] CT Scan Report Signed Patient: Dacia Kc Unit #: [id number] : 1935 Age/Sex: 84 / F ADM Date: 06/12/20 Loc: ER Room/Bed: Attending Dr: Ordering Provider/Ordering MD: Darline Coleman MD Date of Service: 06/12/20 Procedure(s): CT hip RT wo con* [id number] Accession Number(s): [id number] Report Number: [id number] PROCEDURE INFORMATION: Exam: CT Right Lower Extremity Without Contrast, Hip Exam date and time: 06/12/2020 8:39 PM Age: 84 years old Clinical indication: Injury or trauma; Blunt trauma; Right; Patient HX: Fall this a. M. C/O hip and leg pain. TECHNIQUE: Imaging protocol: CT of the Right lower extremity without contrast was performed. Exam focused on the hip. Radiation optimization: All CT scans at this facility use at least one of these dose optimization techniques: automated exposure control; mA and/or kV adjustment per patient size (includes targeted exams where dose is matched to clinical indication); or iterative reconstruction. COMPARISON: CR XR hip RT 2-3V wo/w pel* [id number] 06/12/2020 6:02 PM RADIATION DOSE METRICS: Total DLP (mGy-cm): 1691.16 FINDINGS: Bones/joints: No visible acute fracture. 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 Pseudoarticulation. Dysplastic right acetabulum. Right hip joint effusion. Osteopenia/osteoporosis. Soft tissues: Diffuse muscle atrophy. Obesity. Arteriosclerosis. CT/CT hip RT wo con* [id number] IMPRESSION: No visible fracture. Other CT: Radiologist's impression: [facility] [address] [facility] [address] CT Scan Report Signed Patient: Dacia Kc Unit #: [id number] : 1935 Age/Sex: 84 / F ADM Date: 06/12/20 Loc: ER Room/Bed: Attending Dr: Ordering Provider/Ordering MD: Darline Coleman MD Date of Service: 06/12/20 Procedure(s): CT femur RT wo con* [id number] Accession Number(s): [id number] Report Number: [id number] PROCEDURE INFORMATION: Exam: CT Right Lower Extremity Without Contrast; Thigh Exam date and time: 06/12/2020 9:21 PM Age: 84 years old Clinical indication: Injury or trauma; Blunt trauma; Thigh or upper leg; Right; Patient HX: Fall this a. M. C/O hip and leg pain. TECHNIQUE: Imaging protocol: CT of the Right lower extremity without contrast was performed. Exam focused on the thigh. Radiation optimization: All CT scans at this facility use at least one of these dose optimization techniques: automated exposure control; mA and/or kV adjustment per patient size (includes targeted exams where dose is matched to clinical indication); or iterative reconstruction. COMPARISON: CR XR knee RT 3V* [id number] 06/12/2020 6:02 PM RADIATION DOSE METRICS: Total DLP (mGy-cm): 1727.2 FINDINGS: Bones/joints: No visible acute fracture. 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 Pseudoarticulation. Dysplastic right acetabulum. Right hip joint effusion. Moderate right knee joint effusion. Osteopenia/osteoporosis. Soft tissues: Diffuse muscle atrophy. Obesity. Arteriosclerosis. CT/CT femur RT wo con* [id number] IMPRESSION: No visible fracture. Radiation Dose CTDIVOL = ( EKG Data^: EKG 1: Attestation: I personally reviewed and interpreted this EKG as follows: EKG interpretation date: 06/12/20 EKG interpretation time: 18:36 Interpretation: nsr hr [address] or t wave abnormalities qrs 148 qtc 457 Discharge Plan Discharge Patient Disposition: Home Clinical Impression: Hip pain, right Fall Qualifiers: Encounter type: initial encounter Qualified Code(s): W19.XXXA - Unspecified fall, initial encounter Condition: Stable Prescriptions: New Percocet 7.5-325 mg tablet 1 tab PO Q6H PRN (Reason: pain) Qty: 20 RF: 0 No Action losartan 50 mg Tablet 50 mg PO DAILY RF: 0 cyclobenzaprine 10 mg Tablet 10 mg PO TID RF: 0 sennosides [senna] 8.6 mg Tablet 8.6 mg PO BEDTIME RF: 0 chlorpheniramine maleate [ChlorTabs] 4 mg Tablet 4 mg PO PRN PRN (Reason: UNKNOWN) RF: 0 chlorpheniramine maleate [ChlorTabs] 4 mg Tablet 4 mg PO PRN PRN (Reason: Allergy Symptoms) RF: 0 ondansetron HCl [Zofran] 4 mg Tablet 4 mg PO Q6H PRN (Reason: Nausea And Vomiting) RF: 0 aspirin 81 mg Tablet,Delayed Release (Dr/Ec) 81 mg PO DAILY RF: 0 tramadol 50 mg Tablet 50 mg PO Q6H RF: 0 meloxicam [Mobic] 7.5 mg Tablet 7.5 mg PO DAILY RF: 0 amlodipine 10 mg Tablet 10 mg PO BEDTIME RF: 0 levothyroxine 50 mcg Tablet 50 mcg PO DAILY RF: 0 docusate sodium [Colace] 100 mg Capsule 100 mg PO DAILY RF: 0 Renal Caps 1 mg Capsule 1 cap PO DAILY RF: 0 polyethylene glycol 3350 [Miralax] 17 gram/dose Powder 17 g PO DAILY RF: 0 Culturelle 10 billion cell Capsule 1 cap PO DAILY RF: 0 cholecalciferol (vitamin D3) [Vitamin D3] 25 mcg (1,000 unit) Capsule 25 mcg PO DAILY RF: 0 acetaminophen 325 mg Capsule 325 mg PO Q4H PRN (Reason: Pain, Mild) RF: 0 sevelamer carbonate [Renvela] 800 mg Tablet 800 mg PO TID RF: 0 fentanyl 37.5 mcg/hour Patch 72 Hour 1 patch TRANSDERMAL Q72H RF: 0 Protonix 40 mg Tablet,Delayed Release (Dr/Ec) 40 mg PO BID RF: 0 Colace 100 mg Capsule 100 mg PO BEDTIME RF: 0 Lokelma 5 gram Powder In Packet 5 g PO DAILY RF: 0 Discharge Orders: Discharge Order (Routine); Ordered 06/12/20 Ordered By: Darline Coleman Referrals: Char Parikh MD [Primary Care Provider] - 1-3 days Discharge Diet: Advance as tolerated Discharge Activity: Resume usual activity Patient Instructions: Arthralgia (ED), Fall Prevention (ED) Coding Level of Care Code ED [employer]be[employer]r for Allyg Fwd Exam Comprehensive
[2020-06-12 18:29] LABS: Basophils % 0.1 %; Eosinophils # 0.1 10^3/uL (0.0-0.8); Eosinophils % 1.3 %; Hematocrit 30.6 % (37.0-47.0); Hemoglobin 9.2 g/dL (11.5-15.3); Lymphocytes # 0.7 10^3/uL (0.8-4.8); Lymphocytes % 9.6 %; Mean Corpuscular HGB Conc 30.1 g/dL (30.0-36.0); Mean Corpuscular Hemoglobin 28.7 pg (28.0-34.0); Mean Corpuscular Volume 95.3 fL (81-99); Mean Platelet Volume 9.9 fL (7.4-10.4); Monocytes # 0.6 10^3/uL (0.2-0.9); Monocytes % 7.8 %; Neutrophils # 6.05 10^3/uL (1.8-7.7); Nucleated Red Blood Cells % 0 %; Platelet Count 315 10^3/cmm (130-400); Red Blood Count 3.21 10^6/uL (4.1-5.3); Red Cell Distribution Width 16.7 % (12.1-15.1); White Blood Count 7.7 10^3/uL (4.0-10.0)
[2020-06-12 18:43] LABS: Partial Thromboplastin Time 36.4 SECONDS (23.9-36.7)
[2020-06-12 18:46] LABS: Alanine Aminotransferase < 5 U/L (0-33); Albumin Level 3.9 g/dL (3.5-5.2); Alkaline Phosphatase 91 IU/L (35-105); Anion Gap 20.8 (5-19); Aspartate Amino Transferase 26 U/L (0-32); Blood Urea Nitrogen 34 mg/dL (8-23); Carbon Dioxide 26 mmol/L (22-29); Chloride 94 mmol/L (98-107); Globulin 2.9 g/dL (1.3-4.6); Glucose 154 mg/dL (65-115); Osmolality Calculated 295 mOsm/kg (285-295); Potassium 3.8 mmol/L (3.5-5.1); Sodium 137 mmol/L (136-145); Total Bilirubin 0.4 mg/dL (0.15-1.2); Total Protein 6.8 g/dL (6.6-8.7)
[2020-06-12] MEDS: morphine 4 mg/mL SDV 1 mL IM (18:46)
--- NOTE | 2020-06-12 19:41 | CTR_ITS ---
PROCEDURE INFORMATION: Exam: CT Right Lower Extremity Without Contrast, Hip Exam date and time: 06/12/2020 8:39 PM Age: 84 years old Clinical indication: Injury or trauma; Blunt trauma; Right; Patient HX: Fall this a. M. C/O hip and leg pain. TECHNIQUE: Imaging protocol: CT of the Right lower extremity without contrast was performed. Exam focused on the hip. Radiation optimization: All CT scans at this facility use at least one of these dose optimization techniques: automated exposure control; mA and/or kV adjustment per patient size (includes targeted exams where dose is matched to clinical indication); or iterative reconstruction. COMPARISON: CR XR hip RT 2-3V wo/w pel* [id number] 06/12/2020 6:02 PM RADIATION DOSE METRICS: Total DLP (mGy-cm): 1691.16 FINDINGS: Bones/joints: No visible acute fracture. 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 Pseudoarticulation. Dysplastic right acetabulum. Right hip joint effusion. Osteopenia/osteoporosis. Soft tissues: Diffuse muscle atrophy. Obesity. Arteriosclerosis. CT/CT hip RT wo con* [id number] IMPRESSION: No visible fracture. Radiation Dose CTDIVOL = (mGy): DLP = 1691.16 (mGy-cm)
[2020-06-12] MEDS: HYDROmorphone 1 mg/mL INJ 1 mL IVP (21:03)
--- NOTE | 2020-06-12 21:21 | CTR_ITS ---
PROCEDURE INFORMATION: Exam: CT Right Lower Extremity Without Contrast; Thigh Exam date and time: 06/12/2020 9:21 PM Age: 84 years old Clinical indication: Injury or trauma; Blunt trauma; Thigh or upper leg; Right; Patient HX: Fall this a. M. C/O hip and leg pain. TECHNIQUE: Imaging protocol: CT of the Right lower extremity without contrast was performed. Exam focused on the thigh. Radiation optimization: All CT scans at this facility use at least one of these dose optimization techniques: automated exposure control; mA and/or kV adjustment per patient size (includes targeted exams where dose is matched to clinical indication); or iterative reconstruction. COMPARISON: CR XR knee RT 3V* [id number] 06/12/2020 6:02 PM RADIATION DOSE METRICS: Total DLP (mGy-cm): 1727.2 FINDINGS: Bones/joints: No visible acute fracture. 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 Pseudoarticulation. Dysplastic right acetabulum. Right hip joint effusion. Moderate right knee joint effusion. Osteopenia/osteoporosis. Soft tissues: Diffuse muscle atrophy. Obesity. Arteriosclerosis. CT/CT femur RT wo con* [id number] IMPRESSION: No visible fracture. Radiation Dose CTDIVOL = (mGy): DLP = 1727.2 (mGy-cm)
--- NOTE | 2020-06-12 22:28 | PC.NURSE ---
pt report called to Robbi Hanna custodial RN in SBAR format.
--- NOTE | 2022-06-25 02:09 | ED_ITS ---
HPI - Fall General: Chief Complaint: Fall Stated Complaint: fall Time Seen by Provider: 06/12/20 17:47 Source: patient and EMS Mode of arrival: EMS History of Present Illness: . 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 Fever GERD (gastroesophageal reflux disease) HTN (hypertension) Hypothyroidism Morbid obesity Right hip joint effusion SIRS (systemic inflammatory response syndrome) Staphylococcus aureus bacteremia with sepsis Surgical History A-V fistula H/O hemorrhoidectomy H/O: hysterectomy Family History Father Alcoholism /alcohol abuse Mother Hypertension Denies family history of Chronic kidney disease (CKD) Social History Smoking and tobacco status: former smoker Quit status (tobacco): has quit using tobacco Former quit date comment: 40 yrs ago Alcohol intake: current Alcohol intake frequency: holidays/special occasions only Housing: Assisted Marital status: Current occupational status: retired Physical Exam Const: COMMON NORMALS: patient oriented x3 and healthy appearing GENERAL APPEARANCE: in distress and ill appearing HENMT: COMMON NORMALS: normocephalic and atraumatic HEAD & SCALP: normocephalic and atraumatic Eye: COMMON NORMALS: Equal, round and reactive pupils present and EOMs intact bilaterally PUPIL: Yes Equal, round and reactive pupils present Neck/C-Spine: COMMON NORMALS: full ROM and supple Chest: COMMONS NORMALS: normal inspection of the chest and normal palpation of entire chest wall Resp: COMMON NORMALS: No retractions EFFORT & INSPECTION: Yes tachypneic and Yes respiratory distress AUSCULTATION: rales Cardio: COMMON NORMALS: regular rate, regular rhythm and No murmurs present (Cardio) RATE: regular rate RHYTHM: regular rhythm GI: COMMON NORMALS: Normal to inspection, nondistended, normoactive bowel sounds present, Soft to palpation, non-tender and no masses PALPATION: Yes Soft to palpation Extremity: COMMON NORMALS: full ROM NARRATIVE EXTREMITY EXAM: 2+ edema to lower ext Neuro: COMMON NORMALS: patient oriented x3, moves all extremities and no focal motor deficits Psych: COMMON NORMALS: mental status grossly normal, Normal thought process present and cooperative THOUGHT PROCESS: Normal thought process present Skin: COMMON NORMALS: no rashes or lesions noted and no wounds GENERAL SKIN EXAM: no rashes or lesions noted Course Vital Signs: Vital signs: Vital Signs Temperature 98.7 F 06/12/20 17:49 Pulse Rate 82 06/12/20 21:15 Respiratory Rate 14 06/12/20 22:42 Blood Pressure 192/72 06/12/20 22:42 Pulse Oximetry 95 06/12/20 22:42 Oxygen Delivery Me thod 06/12/20 22:42 Oxygen Flow Rate 2 06/12/20 22:42 MDM - Fall Medical Decision Making Addendum to note done on 06/12 for physical exam Lab Data : 06/12/20 18:13 06/12/20 18:13 Radiology Impressions Hip/Pelvis X-Ray 06/12/20 17:47 IMPRESSION: No visible acute osseous abnormality. Knee X-Ray 06/12/20 17:49 IMPRESSION: Potential small joint effusion. Hip CT 06/12/20 19:41 IMPRESSION: No visible fracture. Radiation Dose CTDIVOL = (mGy): DLP = 1691.16 (mGy-cm) Femur CT 06/12/20 21:21 IMPRESSION: No visible fracture. Radiation Dose CTDIVOL = (mGy): DLP = 1727.2 (mGy-cm) Laboratory Results WBC 7.7 10^3/uL (4.0-10.0) 06/12/20 18:13 RBC 3.21 10^6/uL (4.1-5.3) L 06/12/20 18:13 Hgb 9.2 g/dL (11.5-15.3) L 06/12/20 18:13 Hct 30.6 % (37.0-47.0) L 06/12/20 18:13 MCV 95.3 fL (81-99) 06/12/20 18:13 MCH 28.7 pg (28.0-34.0) 06/12/20 18:13 MCHC 30.1 g/dL (30.0-36.0) 06/12/20 18:13 RDW 16.7 % (12.1-15.1) H 06/12/20 18:13 Plt Count 315 10^3/cmm (130-400) 06/12/20 18:13 MPV 9.9 fL (7.4-10.4) 06/12/20 18:13 Neut % (Auto) 79.0 % 06/12/20 18:13 Lymph % (Auto) 9.6 % 06/12/20 18:13 Angelina % (Auto) 7.8 % 06/12/20 18:13 Eos % (Auto) 1.3 % 06/12/20 18:13 Baso % (Auto) 0.1 % 06/12/20 18:13 Neut # (Auto) 6.05 10^3/uL (1.8-7.7) 06/12/20 18:13 Lymph # (Auto) 0.7 10^3/uL (0.8-4.8) L 06/12/20 18:13 Angelina # (Auto) 0.6 10^3/uL (0.2-0.9) 06/12/20 18:13 Eos # (Auto) 0.1 10^3/uL (0.0-0.8) 06/12/20 18:13 Baso # (Auto) 0.0 10^3/uL (0.0-0.1) 06/12/20 18:13 Nucleated RBC % (auto) 0 % 06/12/20 18:13 Nucleated RBCs # 0.0 /100WBC 06/12/20 18:13 APTT 36.4 SECONDS (23.9-36.7) 06/12/20 18:13 Sodium 137 mmol/L (136-145) 06/12/20 18:13 Potassium 3.8 mmol/L (3.5-5.1) 06/12/20 18:13 Chloride 94 mmol/L (98-107) L 06/12/20 18:13 Carbon Dioxide 26 mmol/L (22-29) 06/12/20 18:13 Anion Gap 20.8 (5-19) H 06/12/20 18:13 BUN 34 mg/dL (8-23) H 06/12/20 18:13 Creatinine 6.2 mg/dL (0.5-0.9) H* 10/02/20 18:13 GFR Calculation Not Reportable 06/12/20 18:13 Glucose 154 mg/dL (65-115) H 06/12/20 18:13 Calculated Osmolality 295 mOsm/kg (285-295) 06/12/20 18:13 Calcium 9.0 mg/dL (8.5-10.5) 06/12/20 18:13 Total Bilirubin 0.4 mg/dL (0.15-1.2) 06/12/20 18:13 AST 26 U/L (0-32) 06/12/20 18:13 ALT < 5 U/L (0-33) 06/12/20 18:13 Alkaline Phosphatase 91 IU/L (35-105) 06/12/20 18:13 Total Protein 6.8 g/dL (6.6-8.7) 06/12/20 18:13 Albumin 3.9 g/dL (3.5-5.2) 06/12/20 18:13 Globulin 2.9 g/dL (1.3-4.6) 06/12/20 18:13 Discharge Plan Discharge Patient Disposition: Admitted As Inpatient Clinical Impression: Acute respiratory failure with hypoxia Condition: Stable Prescriptions: No Action diphenhydramine HCl [Benadryl] 25 mg capsule 25 mg PO TID PRN (Reason: Allergy Symptoms) Rx Instructions: 2 CAPS BY MOUTH ON ETIME ONLY DURING RIDE TO [place] FOR ALLERGY TO IV DYE metoclopramide HCl [Reglan] 5 mg tablet 5 mg PO TID aspirin 81 mg Tablet,Delayed Release (Dr/Ec) 81 mg PO DAILY levothyroxine 50 mcg Tablet 50 mcg PO DAILY docusate sodium [Colace] 100 mg Capsule 100 mg PO DAILY Renal Caps 1 mg Capsule 1 cap PO DAILY polyethylene glycol 3350 [Miralax] 17 gram/dose Powder 17 g PO BEDTIME Culturelle 10 billion cell Capsule 1 cap PO DAILY cholecalciferol (vitamin D3) [Vitamin D3] 25 mcg (1,000 unit) Capsule 25 mcg PO DAILY pantoprazole [Protonix] 40 mg Tablet,Delayed Release (Dr/Ec) 40 mg PO DAILY losartan 100 mg Tablet 100 mg PO BEDTIME fluticasone propionate 50 mcg/actuation spray,suspension 50 mcg INTRANASAL BID bisacodyl 10 mg Suppository 10 mg PA DAILY PRN (Reason: Constipation) cetirizine 10 mg Tablet 10 mg PO DAILY Tums Ultra 470 mg calcium (1,177 mg) Tablet,Chewable 1,410 mg PO TID Rx Instructions: TAKE THREE TABLETS BY MOUTH THREE TIMES DAILY metoclopramide HCl 5 mg Tablet 5 mg PO BEDTIME miconazole nitrate 2 % Powder 1 applic TOPICAL QID PRN (Reason: Rash for under folds) Rx Instructions: May keep at the bedside. tramadol 50 mg Tablet 50 mg PO Q6H PRN (Reason: Pain) acetaminophen 500 mg Tablet 500 mg PO Q6H PRN (Reason: Pain) Rx Instructions: Take by mouth every six hours with Tramadol for pain. Dakin's Solution 0.125 % Solution 1 irrig TOPICAL DAILY Rx Instructions: Clean wounds to BLE with normal saline, apply medihoney to all areas except toes and on top of left foot, place Dakins WTD gauze on wounds to toes and top of left foot, cover all areas, wrap BLE with compilan guaze, change daily. diclofenac sodium 1 % Gel 4 g TOPICAL QID Rx Instructions: apply to single knee, ankle, foot; for foot includes sole/toes/top of foot Zinc Oxide Diaper Cream 1-10 % Cream 1 applic TOPICAL QID PRN (Reason: redness) Rx Instructions: May keep at the bedside. vits A and D-white pet-lanolin Ointment 1 applic TOPICAL QID PRN (Reason: reddened area) Rx Instructions: May keep at bedside. Desitin Rapid Relief 13 % Cream 1 applic TOPICAL QID PRN (Reason: redness) Rx Instructions: May keep at the bedside. fentanyl 37.5 mcg/hour Patch 72 Hour 1 patch TRANSDERMAL Q72H Ativan 0.5 mg tablet 0.5 mg PO DAILY PRN (Reason: agitation) Qty: 1 0RF Discharge Orders: Discharge Order (Routine); Ordered 06/12/20 Ordered By: Darline Coleman Referrals: Char Parikh MD [Primary Care Provider] - 1-3 days Discharge Diet: Advance as tolerated Discharge Activity: Resume usual activity Patient Instructions: Arthralgia (ED), Fall Prevention (ED) Coding Level of Care Code ED Fermentologist for ana [place]
== END 2020-06-12 23:11 | disposition home or self-care (01) ==
PROVIDERS: Emergency Provider Emergency Medicine; PCP Internal Medicine
DX: M25.551 Pain in right hip (principal); Z79.82 Long term (current) use of aspirin; E11.22 Type 2 diabetes mellitus with diabetic chronic kidney disease; I12.0 Hypertensive chronic kidney disease with stage 5 chronic kidney disease or end stage renal disease; N18.6 End stage renal disease; Z99.2 Dependence on renal dialysis; Z87.891 Personal history of nicotine dependence
CPT/HCPCS: 12345; 36415; 73502; 73562; 73700; 80053; 85025; 85730; 93005; 96372; 96374; 96375; 99283; 99284; J1170; J2270

== ENCOUNTER 2021-10-22 16:08 | Inpatient (IN) | payer MEDICARE, MEDICAID, SELFPAY ==
[2021-10-22 16:13] VITALS: BP 169/62; PULSE 104; RESP 9; TEMP 39.4; O2SAT 91; BMI 49.6
--- NOTE | 2021-10-22 16:15 | W.ED.GENADLT ---
HPI - General Adult General: Chief complaint: General Medical Stated complaint: NOT FEELING WELL/ R HIP AND KNEE PAIN Limitations: altered mental status History of Present Illness: Ms. Kc is an 85-year-old lady with complex past medical history including hypertension, hyperlipidemia, diabetes, end-stage renal disease on hemodialysis Monday who presents emerged department due to generalized symptoms. She was last definitively known normal sometime early yesterday. Starting at what she thinks is around 3 PM she started feeling generally unwell. She denies specific symptoms however feels more sleepy than normal. She was unable to complete her full run of dialysis due to how unwell she felt. Daughter does note that she seems more confused and is falling asleep midsentence. Course has been worsening in intensity currently is moderate to severe. Denies other specific changes or any medication changes. No other known specific exacerbating relieving factors identified. History is somewhat limited by patient's mental status. Onset (ago): hour(s) Severity: moderate Review of Systems General: Reports: 10 or more systems reviewed and unremarkable except in HPI and below (With assistance from daughter, limitation of mental status) PFSH ED PFSH: Medical History Anemia of chronic disease Anxiety Constipation 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 Fever GERD (gastroesophageal reflux disease) HTN (hypertension) Hypothyroidism Morbid obesity SIRS (systemic inflammatory response syndrome) Staphylococcus aureus bacteremia with sepsis Surgical History A-V fistula H/O hemorrhoidectomy H/O: hysterectomy Family History Father Alcoholism /alcohol abuse Mother Hypertension Denies family history of Chronic kidney disease (CKD) Social History Smoking and tobacco status: never smoked Quit status (tobacco): has quit using tobacco Former quit date comment: 40 yrs ago Alcohol intake: current Alcohol intake frequency: holidays/special occasions only Housing: Longterm Marital status: Current occupational status: retired Physical Exam Const: GENERAL APPEARANCE: cooperative, ill appearing and other (Somnolent) NUTRITIONAL APPEARANCE: obese HENMT: COMMON NORMALS: normocephalic and atraumatic HEAD & SCALP: normocephalic and atraumatic THROAT: posterior oropharynx normal Eye: COMMON NORMALS: conjunctivae normal CONJUNCTIVA: Yes conjunctivae normal SCLERA: sclerae normal Neck/C-Spine: COMMON NORMALS: supple GENERAL: Yes trachea midline Resp: COMMON NORMALS: normal respiratory effort AUSCULTATION: diminished lung sounds Cardio: COMMON NORMALS: regular rhythm RATE: tachycardic RHYTHM: regular rhythm OTHER: Right AV fistula with clamp for hemostasis in place, no evidence of hemorrhage, thrill present GI: COMMON NORMALS: Soft to palpation PALPATION: Yes Soft to palpation and No Tenderness to palpation present (GI) PERCUSSION: normal to percussion Extremity: GENERAL: Yes normal exam except as noted and No edema Neuro: COMMON NORMALS: CN's II-XII intact bilaterally, moves all extremities, no focal motor deficits and no sensory deficits noted SENSORIUM/ORIENTATION: Yes somnolent Psych: COMMON NORMALS: mental status grossly normal and Normal thought process present THOUGHT PROCESS: Normal thought process present Course ED course: - Patient was seen and evaluated by me at bedside - Patient placed on cardiac monitors, IV access obtained - Initial evaluation notable for somewhat ill appearance, no focal neurologic deficits though patient appears encephalopathic and falls asleep midsentence. - Labs notable for no leukocytosis, normal hemoglobin. Metabolic panel with perhaps some minimal evidence of intravascular depletion, no evidence of emergent need for dialysis. Patient is not hypercapnic on ABG. Delta troponin is negative. BNP elevated. Procalcitonin is elevated. - Imaging notable for no acute pathology identified on head CT. Patient did report right hip and knee pain, negative x-rays. Given elevated procalcitonin, clinical appearance, and no clear source of symptoms I will proceed with additional CT imaging. No acute pathology to explain symptoms identified on CT. - Upon serial reexamination after treatment the patient was improved though has waxing and waning upon reevaluation - Based on patient history, evaluation, labs, and imaging as interpreted the most likely cause of the patient's condition is encephalopathy of unclear etiology with concern for infectious etiology given elevated procalcitonin and clinical history. Patient was given antibiotics. - The results of ED evaluation were discussed with the patient including plan for admission due to requirement for level of care not available if discharged to prevent significant worsening/deterioration. - Admitting service was contacted and Dr Dillon with the hospitalist service agreed to admit the patient - Patient was admitted without further deterioration or significant events. Note: Click bubbles or prepopulated garner in note writing are used for assistance with data collection and billing and are inherently more limited than narrative and other text portions of this note. Please use narrative for additional clinical history and defer to narrative/free test for any case of contradictory information. If information appears in only free text or click bubble it should be considered present or absent as reported. Please contact note public relations writer for clarifications of clinical information or contradictory information. MDM is a brief summary, contradictory or erroneous seeming information should be clarified and full note should be reviewed. Vital Signs: Vital signs: Vital Signs Temperature 97.8 F 10/27/21 04:00 Pulse Rate 60 10/27/21 15:00 Respiratory Rate 16 10/27/21 15:00 Blood Pressure 134/52 10/27/21 15:00 Pulse Oximetry 95 10/27/21 15:00 MDM - General Adult Medical Decision Making 85-year-old lady with complex past medical history presenting with generalized symptoms including encephalopathy. Patient with nonfocal neurologic exam though falling asleep midsentence and clearly encephalopathic on clinical exam. Labs and imaging it without clear explanation for symptoms however procalcitonin is elevated. Antibiotics ordered and patient admitted to the hospital for further medical management and culture surveillance. Medical Records I reviewed the patient's medical records. Lab Data I reviewed the patient's lab results. : 10/27/21 09:00 10/27/21 09:00 Radiology Impressions Chest X-Ray 10/22/21 16:25 IMPRESSION: No acute chest abnormality. Head CT 10/22/21 16:25 IMPRESSION: 1. No acute intracranial abnormality. 2. Stable calcified probable meningioma in the right posterior fossa. Hip/Pelvis X-Ray 10/22/21 19:29 IMPRESSION: 1. No acute finding. Knee X-Ray 10/22/21 19:29 IMPRESSION: 1. No acute finding. Chest/Abdomen/Pelvis CT 10/22/21 22:30 IMPRESSION: 1. No acute abnormality identified in the chest. 2. Multiple thoracic compression fractures. These are age indeterminate but likely chronic. IMPRESSION: 1. No acute abnormality identified in the abdomen or pelvis. 2. Stool burden in the rectum and colon could indicate constipation in the right clinical setting. COMMENTS: Consistent with the [employer]'s Incidental Findings Committee white paper (J Am Frankie Radiol 2018): Any incidental renal lesion less than 1 cm or classified as too small to characterize, or any incidental cystic renal lesion characterized as simple-appearing, is likely benign. No follow-up imaging is recommended for these lesions per consensus recommendations based on imaging criteria. Venous Duplex 10/23/21 02:28 IMPRESSION: No evidence of right upper extremity DVT. WBC Scan Nuclear Medicine 10/26/21 09:10 IMPRESSION: Normal white blood cell study Laboratory Results WBC 9.7 10^3/uL (4.0-10.0) 10/22/21 17:09 RBC 3.96 10^6/uL (4.1-5.3) L 10/22/21 17:09 Hgb 12.2 g/dL (11.5-15.3) 10/22/21 17:09 Hct 38.5 % (37.0-47.0) 10/22/21 17:09 MCV 97.2 fl (81-99) 10/22/21 17:09 MCH 30.8 pg (28.0-34.0) 10/22/21 17:09 MCHC 31.7 g/dL (30.0-36.0) 10/22/21 17:09 RDW 15.2 % (12.1-15.1) H 10/22/21 17:09 Plt Count 159 10^3/cmm (130-400) 10/22/21 17:09 MPV 10.6 fL (7.4-10.4) H 10/22/21 17:09 Neut % (Auto) 93.8 % 10/22/21 17:09 Lymph % (Auto) 1.6 % 10/22/21 17:09 [place] % (Auto) 3.6 % 10/22/21 17:09 Eos % (Auto) 0.2 % 10/22/21 17:09 Baso % (Auto) 0.1 % 10/22/21 17:09 Neut # (Auto) 9.05 10^3/uL (1.8-7.7) H 10/22/21 17:09 Lymph # (Auto) 0.2 10^3/uL (0.8-4.8) L 10/22/21 17:09 [place] # (Auto) 0.4 10^3/uL (0.2-0.9) 10/22/21 17:09 Eos # (Auto) 0.0 10^3/uL (0.0-0.8) 10/22/21 17:09 Baso # (Auto) 0.0 10^3/uL (0.0-0.1) 10/22/21 17:09 Nucleated RBC % (auto) 0 % 10/22/21 17:09 Nucleated RBCs # 0.0 /100WBC 10/22/21 17:09 ESR 12 mm/hr (0-15) 10/23/21 09:53 Specimen Type Arterial 10/22/21 17:02 Sample Site Radial, left 10/22/21 17:02 ABG pH 7.51 (7.35-7.45) H 10/22/21 17:02 ABG pCO2 36.6 mmHg (35-45) 10/22/21 17:02 ABG pO2 55.5 mmHg (80.0-100.0) L 10/22/21 17:02 ABG HCO3 29.4 mmol/L (22-26) H 10/22/21 17:02 ABG Base Excess 6.1 mmol/L (-2.0-2.0) H 10/22/21 17:02 Ez Test Pos 10/22/21 17:02 Hematocrit 33.0 % (37-47) L 10/22/21 17:02 O2 Delivery Device Room air 10/22/21 17:02 FiO2 21.0 % 10/22/21 17:02 Applications Engineer Manufacturing ID Amh 10/22/21 17:02 Sodium 135 mmol/L (136-145) L 10/22/21 20:49 Potassium 4.3 mmol/L (3.5-5.1) 10/22/21 20:49 Chloride 95 mmol/L (98-107) L 10/22/21 20:49 Carbon Dioxide 23 mmol/L (22-29) 10/22/21 20:49 Anion Gap 21.3 (5-19) H 10/22/21 20:49 BUN 40 mg/dL (8-23) H 10/22/21 20:49 Creatinine 4.6 mg/dL (0.5-0.9) H 10/22/21 20:49 GFR Calculation Not Reportable 10/22/21 20:49 Glucose 109 mg/dL (65-115) 10/22/21 20:49 POC Glucose 202 mg/dL (70-110) H 10/23/21 17:03 Calculated Osmolality 290 mOsm/kg (285-295) 10/22/21 20:49 Lactic Acid Cancelled 10/22/21 17:09 Lactate 1.6 mmol/L (0.5-2.2) 10/22/21 20:49 Calcium 8.8 mg/dL (8.5-10.5) 10/22/21 20:49 Magnesium Cancelled 10/22/21 17:09 Total Bilirubin 0.5 mg/dL (0.15-1.2) 10/22/21 20:49 AST 24 U/L (0-32) 10/22/21 20:49 ALT 24 U/L (0-33) 10/22/21 20:49 Alkaline Phosphatase 79 IU/L (35-105) 10/22/21 20:49 Ammonia 25 umol/L (11-51) 10/22/21 17:09 Troponin T Baseline 82 ng/L (0-10) H 10/22/21 20:49 Troponin T 120 Minute 78.82 ng/L (0-10) H 10/22/21 23:09 Delta Troponin T Not Reportable 10/22/21 23:09 Troponin T Hi Sens 6Hr 81.20 ng/L (0-10) H 10/23/21 02:47 Troponin T Hi Sens 6Hr Delta Not Reportable 10/23/21 02:47 C-Reactive Protein 194.0 mg/L (0.0-4.9) H 10/22/21 20:49 NT-Pro-B Natriuret Pep 43570 pg/mL (0-450) H 10/22/21 20:49 Total Protein 6.0 g/dL (6.6-8.7) L 10/22/21 20:49 Albumin 3.2 g/dL (3.5-5.2) L 10/22/21 20:49 Globulin 2.8 g/dL (1.3-4.6) 10/22/21 20:49 Procalcitonin 1.41 ng/mL (0-0.5) H 10/22/21 20:49 TSH 2.05 uIU/mL (0.27-4.20) 10/22/21 20:49 Nasal Influ A H1 2009 PCR Not detected (NOT DETECT) 10/23/21 06:06 Coronavirus 229E (PCR) Not detected (NOT DETECT) 10/23/21 00:15 Influenza A (H1) PCR Not detected (NOT DETECT) 10/23/21 06:06 Influenza A (H3) PCR Not detected (NOT DETECT) 10/23/21 06:06 Influenza Type A Ag Cancelled 10/23/21 06:06 Influenza Type A (PCR) Not detected (NOT DETECT) 10/23/21 06:06 Influenza Type B Ag Cancelled 10/23/21 06:06 Influenza Type B (PCR) Not detected (NOT DETECT) 10/23/21 06:06 SARS-CoV-2 (PCR) Not detected (NOT DETECT) 10/23/21 00:15 SARS-CoV-2 Ag (Rapid) Negative (Negative) 10/22/21 21:22 EKG Data EKG 1: I personally reviewed and interpreted this EKG as follows: EKG interpretation date: 10/22/21 EKG interpretation time: 17:15 Interpretation: Twelve-lead EKG shows a regular rhythm at a rate of 103. HI interval 138, QRS duration 150, QTc 416. Left axis deviation. Interpretation: Sinus tachycardia. Right bundle branch block. Computer generated interpretation: Chest X-Ray 10/22/21 16:25 IMPRESSION: No acute chest abnormality. Head CT 10/22/21 16:25 IMPRESSION: 1. No acute intracranial abnormality. 2. Stable calcified probable meningioma in the right posterior fossa. Hip/Pelvis X-Ray 10/22/21 19:29 IMPRESSION: 1. No acute finding. Knee X-Ray 10/22/21 19:29 IMPRESSION: 1. No acute finding. Chest/Abdomen/Pelvis CT 10/22/21 22:30 IMPRESSION: 1. No acute abnormality identified in the chest. 2. Multiple thoracic compression fractures. These are age indeterminate but likely chronic. IMPRESSION: 1. No acute abnormality identified in the abdomen or pelvis. 2. Stool burden in the rectum and colon could indicate constipation in the right clinical setting. COMMENTS: Consistent with the [employer]'s Incidental Findings Committee white paper (J Am Frankie Radiol 2018): Any incidental renal lesion less than 1 cm or classified as too small to characterize, or any incidental cystic renal lesion characterized as simple-appearing, is likely benign. No follow-up imaging is recommended for these lesions per consensus recommendations based on imaging criteria. Venous Duplex 10/23/21 02:28 IMPRESSION: No evidence of right upper extremity DVT. WBC Scan Nuclear Medicine 10/26/21 09:10 IMPRESSION: Normal white blood cell study EKG 2: I personally reviewed and interpreted this EKG as follows: EKG interpretation date: 10/22/21 EKG interpretation time: 18:32 Interpretation: Twelve-lead EKG shows a regular rhythm at a rate of 95. HI interval 128, QRS 149, QTc 433. Left axis deviation. Interpretation: Sinus rhythm. Right bundle branch block. Computer generated interpretation: Chest X-Ray 10/22/21 16:25 IMPRESSION: No acute chest abnormality. Head CT 10/22/21 16:25 IMPRESSION: 1. No acute intracranial abnormality. 2. Stable calcified probable meningioma in the right posterior fossa. Hip/Pelvis X-Ray 10/22/21 19:29 IMPRESSION: 1. No acute finding. Knee X-Ray 10/22/21 19:29 IMPRESSION: 1. No acute finding. Chest/Abdomen/Pelvis CT 10/22/21 22:30 IMPRESSION: 1. No acute abnormality identified in the chest. 2. Multiple thoracic compression fractures. These are age indeterminate but likely chronic. IMPRESSION: 1. No acute abnormality identified in the abdomen or pelvis. 2. Stool burden in the rectum and colon could indicate constipation in the right clinical setting. COMMENTS: Consistent with the [employer]'s Incidental Findings Committee white paper (J Am Frankie Radiol 2018): Any incidental renal lesion less than 1 cm or classified as too small to characterize, or any incidental cystic renal lesion characterized as simple-appearing, is likely benign. No follow-up imaging is recommended for these lesions per consensus recommendations based on imaging criteria. Venous Duplex 10/23/21 02:28 IMPRESSION: No evidence of right upper extremity DVT. 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
--- NOTE | 2021-10-22 16:25 | CTR_ITS ---
PROCEDURE INFORMATION: Exam: CT Head Without Contrast Exam date and time: 10/22/2021 4:25 PM Age: 85 years old Clinical indication: Malaise or fatigue; Patient HX: C/O lethargy; Additional info: AMS TECHNIQUE: Imaging protocol: Computed tomography of the head without contrast. Radiation optimization: All CT scans at this facility use at least one of these dose optimization techniques: automated exposure control; mA and/or kV adjustment per patient size (includes targeted exams where dose is matched to clinical indication); or iterative reconstruction. COMPARISON: CT head wo con* [id number] 01/11/2016 8:18 PM RADIATION DOSE METRICS: Total DLP (mGy-cm): 788.32 FINDINGS: Brain: Moderate cortical volume loss. Mild hypodensities in supratentorial periventricular and subcortical white matter, consistent with microangiopathy. No intracranial hemorrhage. Stable 2.0 cm densely calcified extra-axial lesion in the anterolateral right posterior fossa, most likely a meningioma. Cerebral ventricles: No ventriculomegaly. Paranasal sinuses: Visualized sinuses are unremarkable. No fluid levels. Mastoid air cells: Visualized mastoid air cells are well aerated. Orbital cavity: Prior cataract surgery. Vasculature: No hyperdense artery. Bones/joints: Unremarkable. No acute fracture. Soft tissues: Unremarkable. CT/CT head wo con* [id number] IMPRESSION: 1. No acute intracranial abnormality. 2. Stable calcified probable meningioma in the right posterior fossa.
--- NOTE | 2021-10-22 16:25 | XR_ITS ---
WS: [id number] XR chest 1V portable [id number] REASON FOR EXAM: ams FINDINGS: The chest is unchanged compared to 05/18/2020. Moderate tortuosity and ectasia thoracic aorta with calcification. Cardiomegaly. No acute pulmonary parenchymal or pleural abnormality. Old left pleural pericardial reaction. Moderate degenerative changes in the mid and lower thoracic spine. Severe degenerative changes in the shoulder joints. Bilateral extensive venous stents. XR/XR chest 1V portable [id number] IMPRESSION: No acute chest abnormality.
--- NOTE | 2021-10-22 16:26 | ECG_ITS ---
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: : 1935 Requested By: Abe Mandujano Order Number: [id number] Delfina MD: HANY PUENTES Measurements Intervals [place] Rate: 103 P: 60 MD: 138 QRS: -43 QRSD: 150 T: 33 QT: 357 QTc: 467 Interpretive Statements SINUS TACHYCARDIA LEFT AXIS DEVIATION [QRS AXIS < -30] RIGHT BUNDLE BRANCH BLOCK [120+ ms QRS DURATION, UPRIGHT V1, 40+ ms S IN I/aVL/V4/V5/V6] Compared to ECG 06/12/2020 17:27:31 Left-axis deviation now present Sinus rhythm no longer present Left anterior fascicular block no longer present Electronically Signed On 10-22-2021 22:54:38 MANAGER [employer]ES by HANY PUENTES [id number] f
[2021-10-22 17:13] LABS: ABG PCO2 36.6 mmHg (35-45); ABG PH Result 7.51 (7.35-7.45); Base Excess ABG 6.1 mmol/L (-2.0-2.0); Blood Gas Allen Test Pos; Blood Gas Operator Identificat AMH; Blood Gas Sample Site Radial, left; Blood Gas Sample Type Arterial; HCO3 ABG 29.4 mmol/L (22-26); Oxygen Device ROOM AIR; PO2 ABG 55.5 mmHg (80.0-100.0)
[2021-10-22 17:18] LABS: Basophils % 0.1 %; Eosinophils % 0.2 %; Hematocrit 38.5 % (37.0-47.0); Hemoglobin 12.2 g/dL (11.5-15.3); Lymphocytes # 0.2 10^3/uL (0.8-4.8); Lymphocytes % 1.6 %; Mean Corpuscular HGB Conc 31.7 g/dL (30.0-36.0); Mean Corpuscular Hemoglobin 30.8 pg (28.0-34.0); Mean Corpuscular Volume 97.2 fl (81-99); Mean Platelet Volume 10.6 fL (7.4-10.4); Monocytes # 0.4 10^3/uL (0.2-0.9); Monocytes % 3.6 %; Neutrophils # 9.05 10^3/uL (1.8-7.7); Neutrophils % 93.8 %; Nucleated Red Blood Cells % 0 %; Platelet Count 159 10^3/cmm (130-400); Red Blood Count 3.96 10^6/uL (4.1-5.3); Red Cell Distribution Width 15.2 % (12.1-15.1); White Blood Count 9.7 10^3/uL (4.0-10.0)
[2021-10-22] MEDS: acetaminophen 1,000 MG/100 ML PIGGYBACK 400 MG IV (17:56)
[2021-10-22 17:57] LABS: Ammonia 25 umol/L (11-51)
--- NOTE | 2021-10-22 18:26 | ECG_ITS ---
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1935 Requested By: Abe Mandujano Order Number: [id number] Reading MD: HANY PUENTES Measurements Intervals [place] Rate: 95 P: 66 NV: 128 QRS: -45 QRSD: 149 T: 30 QT: 380 QTc: 479 Interpretive Statements SINUS RHYTHM RIGHT BUNDLE BRANCH BLOCK [120+ ms QRS DURATION, UPRIGHT V1, 40+ ms S IN I/aVL/V4/V5/V6] LEFT ANTERIOR FASCICULAR BLOCK [QRS AXIS <= -45, QR IN I, RS IN II] Compared to ECG 10/22/2021 17:11:06 Left anterior fascicular block now present Sinus tachycardia no longer present Left-axis deviation no longer present Electronically Signed On 10-22-2021 22:55:51 LACQUER SHADER by HANY PUENTES [id number]
--- NOTE | 2021-10-22 19:29 | XRR_ITS ---
PROCEDURE INFORMATION: Exam: XR Right Knee Exam date and time: 10/22/2021 7:29 PM Age: 85 years old Clinical indication: Pain; Knee; Right; Additional info: Knee pain TECHNIQUE: Imaging protocol: XR Right knee. Views: 3 views. COMPARISON: No relevant prior studies available. FINDINGS: Bones/joints: Diffuse demineralization of the bones. The bones appear intact. No visible fracture. No visible knee effusion. Mild degenerative changes. Soft tissues: Normal. Vasculature: Arterial calcifications. XR/XR knee RT 3V* [id number] IMPRESSION: 1. No acute finding.
--- NOTE | 2021-10-22 19:29 | XRR_ITS ---
PROCEDURE INFORMATION: Exam: XR Right Hip Exam date and time: 10/22/2021 7:29 PM Age: 85 years old Clinical indication: Hip pain; Right hip; Additional info: Hip pain, necrosis of the femoral head TECHNIQUE: Imaging protocol: XR Right hip. Views: 1 view hip with pelvis when performed. 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 Severe degenerative changes of the right hip joint. This finding is chronic and unchanged. No acute fracture identified. Soft tissues: Unremarkable. Vasculature: Arterial calcifications. XR/XR hip RT 2-3V wo/w pel* [id number] IMPRESSION: 1. No acute finding.
[2021-10-22 21:21] VITALS: BP 169/62; PULSE 77; RESP 20; TEMP 36.8; O2SAT 97
--- NOTE | 2021-10-22 21:26 | PC.NURSE ---
patient resting on stretcher daughter at bedside. patient speech clear, sentences complete. respirations even equal and unlabored. NAD
[2021-10-22 21:28] LABS: Lactate (Lactic Acid level) 1.6 mmol/L (0.5-2.2)
[2021-10-22 21:44] LABS: Procalcitonin 1.41 ng/mL (0-0.5); Thyroid Stimulating Hormone 2.05 uIU/mL (0.27-4.20)
[2021-10-22 21:58] LABS: Alanine Aminotransferase 24 U/L (0-33); Albumin Level 3.2 g/dL (3.5-5.2); Alkaline Phosphatase 79 IU/L (35-105); Anion Gap 21.3 (5-19); Aspartate Amino Transferase 24 U/L (0-32); Blood Urea Nitrogen 40 mg/dL (8-23); Calcium 8.8 mg/dL (8.5-10.5); Carbon Dioxide 23 mmol/L (22-29); Chloride 95 mmol/L (98-107); Globulin 2.8 g/dL (1.3-4.6); Glucose 109 mg/dL (65-115); Osmolality Calculated 290 mOsm/kg (285-295); Potassium 4.3 mmol/L (3.5-5.1); Sodium 135 mmol/L (136-145); Total Bilirubin 0.5 mg/dL (0.15-1.2)
[2021-10-22 22:04] LABS: NT Pro B Type Natriuretic Pept 28292 pg/mL (0-450)
[2021-10-22 22:15] LABS: SARS Covid-2 Antigen Negative (Negative)
--- NOTE | 2021-10-22 22:30 | CTR_ITS ---
PROCEDURE INFORMATION: Exam: CT Chest Without Contrast; Diagnostic Exam date and time: 10/22/2021 10:30 PM Age: 85 years old Clinical indication: Abdominal tenderness and fever; Prior surgery; Surgery date: 6+ months; Surgery type: Hyst, appy, gb; Patient HX: Cough, abd pain; Additional info: Cough, abd pain, ? source of infection TECHNIQUE: Imaging protocol: Diagnostic computed tomography of the chest without contrast. Radiation optimization: All CT scans at this facility use at least one of these dose optimization techniques: automated exposure control; mA and/or kV adjustment per patient size (includes targeted exams where dose is matched to clinical indication); or iterative reconstruction. COMPARISON: CT abdomen pelvis con [id number] 05/18/2020 8:42 PM RADIATION DOSE METRICS: Total DLP (mGy-cm): 2323.18 FINDINGS: Lungs: Mild dependent atelectasis in both lungs. The lungs are otherwise clear. No consolidation. Pleural spaces: Unremarkable. No pneumothorax. No pleural effusion. Heart: Mild coronary artery calcifications. The heart size is normal. Aorta: Unremarkable. No aortic aneurysm. Veins: Bilateral subclavian and axillary venous stents. Lymph nodes: Prominent cardiophrenic lymph nodes are unchanged and most likely reactive. Bones/joints: Mild T4, T7 and T11 compression fractures. Thoracic curvature. Soft tissues: Mild body wall edema. PROCEDURE INFORMATION: Exam: CT Abdomen And Pelvis Without Contrast Exam date and time: 10/22/2021 10:30 PM Age: 85 years old Clinical indication: Abdominal tenderness and fever; Prior surgery; Surgery date: 6+ months; Surgery type: Hyst, appy, gb; Patient HX: Cough, abd pain; Additional info: Cough, abd pain, ? source of infection TECHNIQUE: Imaging protocol: Computed tomography of the abdomen and pelvis without contrast. Radiation optimization: All CT scans at this facility use at least one of these dose optimization techniques: automated exposure control; mA and/or kV adjustment per patient size (includes targeted exams where dose is matched to clinical indication); or iterative reconstruction. COMPARISON: CT abdomen pelvis con [id number] 05/18/2020 8:42 PM RADIATION DOSE METRICS: Total DLP (mGy-cm): 2323.18 FINDINGS: Liver: Normal. No mass. Gallbladder and bile ducts: Cholecystectomy. The bile ducts are normal. Pancreas: Normal. No ductal dilation. Spleen: Normal. No splenomegaly. Adrenal glands: Normal. No mass. Kidneys and ureters: Atrophic kidneys. Fluid density cyst in the right kidney, Hounsfield units less than 20. Additional smaller lesions in both kidneys are too small to characterize but are likely cysts as well. No follow-up imaging is recommended. Stomach and bowel: Moderate stool in the rectum. Scattered stool throughout the entire colon. No visible wall thickening. The stomach is decompressed. The small bowel is unremarkable. No wall thickening or obstruction. Appendix: The appendix is not visualized. No secondary signs of appendicitis. Intraperitoneal space: Unremarkable. No free air. No significant fluid collection. Vasculature: Arterial calcifications. No aneurysm. Lymph nodes: Unremarkable. No enlarged lymph nodes. Urinary bladder: The urinary bladder is decompressed. Reproductive: The uterus and ovaries are absent. Bones/joints: Degenerative lumbar spine. No acute fracture. Chronic bilateral L5 pars fractures with grade 1 anterolisthesis. Soft tissues: Diastasis recti. Anterior mesh placement. Body wall edema. CT/CT chest abd pel wo con IMPRESSION: 1. No acute abnormality identified in the chest. 2. Multiple thoracic compression fractures. These are age indeterminate but likely chronic. IMPRESSION: 1. No acute abnormality identified in the abdomen or pelvis. 2. Stool burden in the rectum and colon could indicate constipation in the right clinical setting. COMMENTS: Consistent with the [place] [employer]'s Incidental Findings Committee white paper (J Am Frankie Radiol 2018): Any incidental renal lesion less than 1 cm or classified as too small to characterize, or any incidental cystic renal lesion characterized as simple-appearing, is likely benign. No follow-up imaging is recommended for these lesions per consensus recommendations based on imaging criteria.
[2021-10-22 23:54] LABS: Troponin 5 2HR 78.82 ng/L (0-10)
[2021-10-23] VITALS (8 sets, daily range): BP systolic 102–169; BP diastolic 47–69; PULSE 71–104; RESP 16–21; TEMP 36.6–38.2; O2SAT 90–95; BMI 49.6
[2021-10-23] MEDS: piperacillin-tazobactam 4.5 GM in sodium chloride 0.9% (plus) 50 ML IV (00:08)
--- NOTE | 2021-10-23 00:28 | P.HP_ITS ---
Providers/Chief Complaint Primary Care Provider: Char Parikh MD Chief Complaint: NOT FEELING WELL/ R HIP AND KNEE PAIN History of Present Illness Dacia Kc is a 85 year old female with a past medical history of end- stage renal disease on dialysis, dialysis a Monday, type 2 diabetes mellitus [id number], hypertension, anxiety, chronic pain, who presents to [facility] due to feeling ill, fevers, chills, nausea, fatigue, malaise. Denies any chest pain, no palpitations. No cough, no shortness of breath. No headache, no blurry vision, no neck pain. No diarrhea, no abdominal pain. Does not urinate. No pelvic pain. No joint pains. She does tell me that on Monday she was at [facility] and they were working on her AV fistula, one arm of the fistula had failed, and that she had to have a repair. Has received all 3 Covid vaccines. Of note patient had an admission May 2020 which was similar due to fevers, feeling unwell, no focal findings of infection except gastroenteritis Review of Systems Const: Reports: fever(s), chills, fatigue and malaise Eyes: Denies: change in vision or blurry vision ENMT: Denies: nasal congestion Card: Denies: chest pain, palpitations or syncope Resp: Denies: dyspnea, productive cough, non-productive cough or wheezing GI: Denies: abdominal pain, nausea, vomiting, hematemesis, diarrhea, constipation, hematochezia or melena : Denies: flank pain, dysuria or urinary frequency Musc: Denies: neck pain or back pain Skin/Breast: Denies: rash Neuro: Denies: headache(s), dizziness or vertigo Psych: Denies: anxiety or depression Endo: Denies: polyuria or polydipsia Medications/Allergies Home Medications Medication Instructions Recorded Confirmed Last Taken Type Lactobacillus rhamnosus GG 10 1 cap PO DAILY 05/19/20 10/05/21 06/12/20 History billion cell capsule (Culturelle) acetaminophen 325 mg capsule 325 mg PO Q4H PRN 05/19/20 10/05/21 06/12/20 History aspirin 81 mg tablet,delayed 81 mg PO DAILY 05/19/20 10/05/21 06/12/20 History release chlorpheniramine maleate 4 mg 4 mg PO PRN PRN 05/19/20 10/05/21 06/10/20 History tablet (ChlorTabs) chlorpheniramine maleate 4 mg 4 mg PO PRN PRN 05/19/20 10/05/21 06/12/20 History tablet (ChlorTabs) cholecalciferol (vitamin D3) 25 25 mcg PO DAILY 05/19/20 10/05/21 06/12/20 History mcg (1,000 unit) capsule (Vitamin D3) cyclobenzaprine 10 mg tablet 10 mg PO TID 05/19/20 10/05/21 05/24/20 History docusate sodium 100 mg capsule 100 mg PO DAILY 05/19/20 10/05/21 06/12/20 History (Colace) fentanyl 37.5 mcg/hour transdermal 1 patch TRANSDERMAL Q72H 05/19/20 10/05/21 06/11/20 History patch levothyroxine 50 mcg tablet 50 mcg PO DAILY 05/19/20 10/05/21 06/12/20 History losartan 50 mg tablet 50 mg PO DAILY 05/19/20 10/05/21 06/12/20 History ondansetron HCl 4 mg tablet 4 mg PO Q6H PRN 05/19/20 10/05/21 06/11/20 History (Zofran) polyethylene glycol 3350 17 17 g PO DAILY 05/19/20 10/05/21 06/12/20 History gram/dose oral powder (Miralax) sennosides 8.6 mg tablet (senna) 8.6 mg PO BEDTIME 05/19/20 10/05/21 06/09/20 History sevelamer carbonate 800 mg tablet 800 mg PO TID 05/19/20 10/05/21 06/12/20 History (Renvela) tramadol 50 mg tablet 50 mg PO Q6H 05/19/20 10/05/21 06/12/20 History vitamin B complex and vitamin C 1 cap PO DAILY 05/19/20 10/05/21 06/12/20 History no.20-folic acid 1 mg capsule (Renal Caps) docusate sodium 100 mg capsule 100 mg PO BEDTIME 06/12/20 10/05/21 06/09/20 History (Colace) pantoprazole 40 mg tablet,delayed 40 mg PO BID 06/12/20 10/05/21 06/12/20 History release (Protonix) sodium zirconium cyclosilicate 5 5 g PO DAILY 06/12/20 10/05/21 06/11/20 History gram oral powder packet (Lokelma) diclofenac sodium 1 % topical gel 2 g TOPICAL QID 10/05/21 10/05/21 Unknown History lorazepam 0.5 mg tablet (Ativan) 0.5 mg PO DAILY PRN 10/05/21 10/05/21 Unknown History metoprolol succinate 25 mg 12.5 mg PO DAILY PRN 10/05/21 10/05/21 Unknown History tablet,extended release 24 hr prednisone 50 mg tablet 50 mg PO DAILY 10/05/21 10/05/21 Unknown History Allergies Allergy/AdvReac Type Severity Reaction Status Date / Time vancomycin Allergy ADR-Itching Verified 10/05/21 14:16 PFSH Acute PFSH: Medical History Anemia of chronic disease Anxiety Constipation 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 GERD (gastroesophageal reflux disease) HTN (hypertension) Hypothyroidism Morbid obesity Surgical History A-V fistula H/O hemorrhoidectomy H/O: hysterectomy Family History Father Alcoholism /alcohol abuse Mother Hypertension Denies family history of Chronic kidney disease (CKD) Social History Smoking and tobacco status: never smoked Quit status (tobacco): has quit using tobacco Former quit date comment: 40 yrs ago Alcohol intake: current Alcohol intake frequency: holidays/special occasions only Housing: [facility] Marital status: Current occupational status: retired Vitals/I&O/Wt Last Vital Signs Temp 98.3 F 10/22/21 21:21 Pulse 77 10/22/21 21:21 Resp 20 H 10/22/21 21:21 BP 169/62 10/22/21 21:21 Pulse Ox 97 10/22/21 21:21 Weight last 48 hrs Weight 127.006 kg Physical Exam Const: COMMON NORMALS: no acute distress and patient oriented x3 HENMT: COMMON NORMALS: normocephalic HEAD & SCALP: normocephalic Neck/C-Spine: COMMON NORMALS: supple, no meningeal signs and no JVD Lymph: LYMPHATIC: no lymphadenopathy noted Resp: COMMON NORMALS: normal respiratory effort, No retractions, No use of accessory muscles and clear to auscultation bilaterally AUSCULTATION: clear to auscultation bilaterally Cardio: COMMON NORMALS: no JVD, regular rate, regular rhythm, S1 normal heart sound present and S2 normal heart sound present RATE: regular rate RHYTHM: regular rhythm HEART SOUNDS: S1 normal heart sound present and S2 normal heart sound present GI: COMMON NORMALS: Normal to inspection, nondistended, normoactive bowel sue nds present, Soft to palpation, non-tender, No hepatosplenomegaly present, no masses and no bruits PALPATION: Yes Soft to palpation and Yes No hepatosplenomegaly present Extremity: COMMON NORMALS: capillary refill normal, no clubbing, cyanosis or edema, no calf tenderness and no pedal edema Neuro: COMMON NORMALS: patient oriented x3 Psych: COMMON NORMALS: mental status grossly normal Skin: NARRATIVE SKIN EXAM: Right arm, AV fistula site, with a bandage on top, no active bleeding, no signs of focal infection, no significant erythema, no tenderness, Data : 10/22/21 17:09 10/22/21 20:49 Micro: Microbiology 10/22/21 19:00 Blood Culture - Preliminary Blood SPECIMEN COLLECTED 10/22/21 17:07 Blood Culture - Preliminary Blood SPECIMEN COLLECTED A&P Assessment and plan (1) SIRS (systemic inflammatory response syndrome): Status: Acute (2) Diabetes mellitus: Status: Chronic Qualifiers: Diabetes mellitus type: type 2 Diabetes mellitus residential insulin use: without tank terminal gauger use Diabetes mellitus complication status: with kidney complications Diabetes mellitus complication detail: with chronic kidney disease Chronic kidney disease stage: on chronic dialysis Qualified Code(s): E11.22 - Type 2 diabetes mellitus with diabetic chronic kidney disease; N18.6 - End stage renal disease; Z99.2 - Dependence on renal dialysis (3) GERD (gastroesophageal reflux disease): Status: Chronic Qualifiers: Esophagitis presence: esophagitis presence not specified Qualified Code(s): K21.9 - Gastro-esophageal reflux disease without esophagitis (4) Hypothyroidism: Status: Chronic Qualifiers: Hypothyroidism type: unspecified Qualified Code(s): E03.9 - Hypothyroidism, unspecified (5) HTN (hypertension): Status: Chronic Qualifiers: Hypertension type: essential hypertension Qualified Code(s): I10 - Essential (primary) hypertension (6) ESRD (end stage renal disease) on dialysis: Status: Chronic (7) Fever: Status: Acute Plan Fever, fatigue, malaise -No focal findings of infection -CRP elevated, pro-Pedro elevated -Febrile in the emergency room -Rapid Covid negative -Covid PCR ordered, rapid flu ordered -Blood cultures ordered, sputum cultures, urine cultures, urine bacterial antigens -Does have a systolic murmur on exam, cardiac echo ordered -Recently had her right arm AV fistula worked on, no focal signs of infection, but will order ultrasound -Chest x-ray no focal pneumonia -No significant leukocytosis -Had a english CT, no focal signs of infection -Currently on room air, normotensive, she has no complaints presently -Has received Zosyn in the emergency room -Empirically continue Zosyn, Zyvox -We will monitor clinically end-stage renal disease, on dialysis, Monday, did receive half of her dialysis on Monday Type 2 diabetes mellitus, low-dose sliding scale Hypothyroidism, TSH within normal limits, continue levothyroxine Attestations Medical Necessity Statement*: Patient requires hospitalization, outpatient with observation, for fevers Coding Level of Care Code Acute Animal Therapist for Chg Fwd Diagnoses SIRS (systemic inflammatory response syndrome) R65.10 Diabetes mellitus E11.22; N18.6; Z99.2 Diabetes mellitus type: type 2 Diabetes mellitus tank terminal gauger insulin use: without tank terminal gauger use Diabetes mellitus complication status: with kidney complications Diabetes mellitus complication detail: with chronic kidney disease Chronic kidney disease stage: on chronic dialysis GERD (gastroesophageal reflux disease) K21.9 Esophagitis presence: esophagitis presence not specified Hypothyroidism E03.9 Hypothyroidism type: unspecified HTN (hypertension) I10 Hypertension type: essential hypertension ESRD (end stage renal disease) on dialysis N18.6; Z99.2 Fever R50.9
[2021-10-23 02:10] LABS: Adenovirus Not Detected (NOT DETECT); Chlamydia Pneumoniae Not Detected (NOT DETECT); Coronavirus 229E,HKU1,NL63,OC4 Not Detected (NOT DETECT); Human Metapneumovirus Not Detected (NOT DETECT); Human Rhinovirus/Enterovirus Not Detected (NOT DETECT); Influenza A Not Detected (NOT DETECT); Influenza A H1 Not Detected (NOT DETECT); Influenza A H1-2009 Not Detected (NOT DETECT); Influenza A H3 Not Detected (NOT DETECT); Influenza B Not Detected (NOT DETECT); Mycoplasma Pneumoniae Not Detected (NOT DETECT); Parainfluenza Virus Type 1 Not Detected (NOT DETECT); Parainfluenza Virus Type 2 Not Detected (NOT DETECT); Parainfluenza Virus Type 3 Not Detected (NOT DETECT); Parainfluenza Virus Type 4 Not Detected (NOT DETECT); Respiratory Syncytial Virus A Not Detected (NOT DETECT); Respiratory Syncytial Virus B Not Detected (NOT DETECT); SARS-COV-2 Not Detected (NOT DETECT)
--- NOTE | 2021-10-23 02:28 | USCV_ITS ---
Dacia Kc Age: 85 Gender: F : 1935 Exam Date: 10/23/2021 07:05 Ordering Phys: Kristofer Dillon MD Technologist: Cris Egan Exam Location: [facility] [place] Indication: murmur BP: 169 / 62 HR: 80 Rhythm: Sinus Technical Quality: Technically difficult MEASUREMENTS (Male / Female) Normal Values 2D ECHO LV Diastolic Diameter PLAX 2.5 cm 4.2 - 5.9 / 3.9 - 5.3 cm LV Systolic Diameter PLAX 1.8 cm IVS Diastolic Thickness 1.1 cm 0.6 - 1.0 / 0.6 - 0.9 cm IVS Systolic Thickness 2.0 cm LVPW Diastolic Thickness 1.0 cm 0.6 - 1.0 / 0.6 - 0.9 cm LVPW Systolic Thickness 1.5 cm LVOT Diameter 2.0 cm LV Ejection Fraction 2D Teich 52.6 % LA Diameter 3.7 cm Aorta at Sinotubular Diameter 1.8 cm M-MODE Aortic Annulus Diameter 2.7 cm LA Ao Ratio MM 1.5 MV E Point Septal Separation 0.6 cm DOPPLER AV Peak Velocity 116.0 cm/s LVOT Peak Velocity 75.0 cm/s AV Area Cont Eq vti 2.5 cm squared AV Area Cont Eq pk 2.1 cm squared MV Area PHT 2.7 cm squared Mitral E to A Ratio 0.7 MV E' Velocity 38.0 cm/s Mitral E to MV E' Ratio 8.5 Mitral E to LV E' Lateral Ratio 7.5 Mitral E to LV E' Septal Ratio 9.9 TR Peak Velocity 188.6 cm/s TR Peak Gradient 14.2 mmHg TR Mean Velocity 97.3 cm/s TR Mean Gradient 4.5 mmHg TR Velocity Time Integral 29.2 cm TV Peak E Velocity 51.0 cm/s Right Atrial Pressure 3.0 mmHg Pulmonary Artery Systolic Pressu 17.2 mmHg PV Peak Velocity 141.0 cm/s RV Acceleration Time 0.1 s RV Ejection Time 0.3 s RV AcT/ET 0.4 FINDINGS Left Ventricle Normal left ventricular size. LV systolic function is normal with EF of 55-60%. No regional wall motion abnormalities. Grade 1 diastolic dysfunction Right Ventricle Not well visualized Right Atrium Not well visualized Left Atrium Not well visualized Mitral Valve Grossly normal without significant stenosis or prolapse. There is trace mitral regurgitation. Aortic Valve Aortic valve is thickened. No significant stenosis or regurgitation noted Tricuspid Valve Structurally normal tricuspid valve without significant stenosis. Trace tricuspid regurgitation. Pulmonary artery systolic pressure is normal. Pulmonic Valve Not well visualized. Pericardium Normal pericardium without effusion. Aorta Normal ascending aorta dimension. CONCLUSIONS Technically limited quality echocardiogram because of poor ultrasonic windows LV systolic function is normal with EF of 55-60% Grade 1 diastolic dysfunction Trace mitral regurgitation Trace tricusid regurgitation Aortic valve is thickened No comparison studies are available Sujit Baird MD (Electronically Signed) Final Date: 23 October 2021 18:13 S
--- NOTE | 2021-10-23 02:28 | USR_ITS ---
PROCEDURE INFORMATION: Exam: US Duplex Right Upper Extremity Veins, Limited Exam date and time: 10/23/2021 2:28 AM Age: 85 years old Clinical indication: Device placement; Other: Dialysis graft; Prior surgery; Surgery date: <1 month; Additional info: Right arm av fistula TECHNIQUE: Imaging protocol: Real-time Duplex ultrasound of the Right Upper Extremity with 2-D snyder scale, color Doppler flow and spectral waveform analysis with image documentation. Limited exam focused on the right upper extremity veins. COMPARISON: CT chest abd pel wo con 10/22/2021 10:55 PM FINDINGS: Right deep veins: Unremarkable. Axillary and brachial veins are patent throughout without thrombus. Normal Doppler waveforms. Normal compressibility and/or augmentation response. Visualized internal jugular and subclavian veins are patent. Right superficial veins: Unremarkable. Visualized cephalic and basilic veins are patent without thrombus. Soft tissues: No significant soft tissue abnormalities. Other findings: Some images are incorrectly labeled left incidental of right. The research laboratory technician with contacted and confirmed the study and images are of the right upper extremity. Livestock Exhibitor Cris Egan reports: unable to image the right upper extremity hemodialysis graft due to overlying bandages[place] US/[place] [id number] IMPRESSION: No evidence of right upper extremity DVT.
[2021-10-23] MEDS: acetaminophen 325 mg Tablet 650 MG PO (02:32)
[2021-10-23] MEDS: linezolid premix 600 MG/300 ML PREMIX 300 MG IV ×2 (02:43→14:45)
[2021-10-23] MEDS: TRAMadol 50 mg Tablet PO ×4 (03:14→20:29)
[2021-10-23] MEDS: heparin 5,000 unit/mL INJ 1 mL 5000 UNIT SUBCUT ×2 (03:15→14:07)
--- NOTE | 2021-10-23 03:19 | PC.NURSE ---
patient placed on hospital bed for comfort. tele in place.
[2021-10-23 03:47] LABS: Troponin(5th) Baseline 82 ng/L (0-10)
[2021-10-23 09:23] LABS: Glucose Point of Care 110 mg/dL (70-110)
[2021-10-23] MEDS: levothyroxine 50 mcg Tablet PO (09:47)
[2021-10-23] MEDS: pantoprazole DR 40 mg Tablet PO ×2 (09:47→17:55)
[2021-10-23] MEDS: losartan 50 mg Tablet PO (09:47)
[2021-10-23] MEDS: sevelamer 800 mg Tablet PO ×2 (09:47→14:05)
[2021-10-23] MEDS: cyclobenzaprine 10 mg Tablet PO ×3 (09:47→20:28)
[2021-10-23] MEDS: aspirin 81 mg EC Tablet PO (09:48)
[2021-10-23] MEDS: fentaNYL 12 mcg Patch 1 PATCH TRANSDERMA (09:48)
[2021-10-23] MEDS: fentaNYL 25 mcg Patch 1 PATCH TRANSDERMA (09:49)
[2021-10-23 10:14] LABS: Erythrocyte Sedimentation Rate 12 mm/hr (0-15)
[2021-10-23 11:15] LABS: Glucose Point of Care 160 mg/dL (70-110)
[2021-10-23] MEDS: cholecalciferol (vitamin D3) 1,000 unit Tablet 1000 UNIT PO (12:59)
[2021-10-23] MEDS: piperacillin-tazobactam 3.375 GM in sodium chloride 0.9% (plus) 100 ML IV ×2 (12:59→23:32)
[2021-10-23 13:32] LABS: Bacillus cereus group Not Detected (NOT DETECT); Bacillus subtillis group Not Detected (NOT DETECT); Corynebacterium Not Detected (NOT DETECT); Cutibacterium acnes (P.acnes) Not Detected (NOT DETECT); Enterococcus Not Detected (NOT DETECT); Enterococcus faecalis Not Detected (NOT DETECT); Enterococcus faecium Not Detected (NOT DETECT); Lactobacillus species Not Detected (NOT DETECT); Listeria Not Detected (NOT DETECT); Listeria monocytogenes Not Detected (NOT DETECT); Micrococcus Not Detected (NOT DETECT); Pan Candida Not Detected (NOT DETECT); Pan Gram-Negative Not Detected (NOT DETECT); Staphylococcus epidermidis Not Detected (NOT DETECT); Staphylococcus lugdunensis Not Detected (NOT DETECT); Staphylococcus species Detected (NOT DETECT); Streptococcus agalactiae Not Detected (NOT DETECT); Streptococcus anginosus group Not Detected (NOT DETECT); Streptococcus pneumoniae Not Detected (NOT DETECT); Streptococcus pyogenes Not Detected (NOT DETECT); Streptococcus species Not Detected (NOT DETECT); mecA Not Detected (NOT DETECT); mecC Not Detected (NOT DETECT)
[2021-10-23 15:04] LABS: Influenza A Not Detected (NOT DETECT); Influenza A H1 Not Detected (NOT DETECT); Influenza A H1-2009 Not Detected (NOT DETECT); Influenza A H3 Not Detected (NOT DETECT); Influenza B Not Detected (NOT DETECT)
[2021-10-23 16:20] LABS: Results from Genmark
[2021-10-23 17:10] LABS: Glucose Point of Care 202 mg/dL (70-110)
[2021-10-23] MEDS: docusate sodium 100 mg Capsule PO (17:55)
[2021-10-23 21:55] LABS: Glucose Point of Care 112 mg/dL (70-110)
[2021-10-24] VITALS (9 sets, daily range): BP systolic 102–142; BP diastolic 56–73; PULSE 66–74; RESP 15–20; TEMP 36.4–37.3; O2SAT 90–93
[2021-10-24] MEDS: linezolid premix 600 MG/300 ML PREMIX 300 MG IV (02:11)
[2021-10-24] MEDS: heparin 5,000 unit/mL INJ 1 mL 5000 UNIT SUBCUT ×2 (02:12→14:15)
[2021-10-24] MEDS: TRAMadol 50 mg Tablet PO ×5 (02:12→22:02)
[2021-10-24 05:17] LABS: Basophils % 0.2 %; Eosinophils # 0.2 10^3/uL (0.0-0.8); Eosinophils % 2.9 %; Hematocrit 27.7 % (37.0-47.0); Hemoglobin 8.7 g/dL (11.5-15.3); Lymphocytes # 0.7 10^3/uL (0.8-4.8); Lymphocytes % 8.4 %; Mean Corpuscular HGB Conc 31.4 g/dL (30.0-36.0); Mean Corpuscular Volume 95.5 fl (81-99); Mean Platelet Volume 11.1 fL (7.4-10.4); Monocytes # 0.7 10^3/uL (0.2-0.9); Monocytes % 8.8 %; Neutrophils # 6.58 10^3/uL (1.8-7.7); Neutrophils % 79.1 %; Nucleated Red Blood Cells % 0 %; Platelet Count 146 10^3/cmm (130-400); Red Cell Distribution Width 15.4 % (12.1-15.1); White Blood Count 8.3 10^3/uL (4.0-10.0)
[2021-10-24 05:35] LABS: Alanine Aminotransferase 20 U/L (0-33); Albumin Level 2.9 g/dL (3.5-5.2); Alkaline Phosphatase 70 IU/L (35-105); Anion Gap 19.7 (5-19); Aspartate Amino Transferase 20 U/L (0-32); Blood Urea Nitrogen 65 mg/dL (8-23); C Reactive Protein 207.4 mg/L (0.0-4.9); Calcium 8.8 mg/dL (8.5-10.5); Carbon Dioxide 24 mmol/L (22-29); Chloride 91 mmol/L (98-107); Globulin 2.4 g/dL (1.3-4.6); Glucose 82 mg/dL (65-115); Magnesium 2.2 mg/dL (1.7-2.3); Osmolality Calculated 288 mOsm/kg (285-295); Phosphorus 3.6 mg/dL (2.5-4.5); Potassium 4.7 mmol/L (3.5-5.1); Sodium 130 mmol/L (136-145); Total Bilirubin 0.4 mg/dL (0.15-1.2); Total Protein 5.3 g/dL (6.6-8.7)
[2021-10-24 05:36] LABS: Lactate (Lactic Acid level) 1.3 mmol/L (0.5-2.2)
[2021-10-24 05:38] LABS: Creatine Phosphokinase 170 U/L (26-192)
[2021-10-24] MEDS: lanolin oint 7 gm 1 APPLIC TOPICAL (05:40)
[2021-10-24 05:46] LABS: Procalcitonin 2.37 ng/mL (0-0.5)
--- NOTE | 2021-10-24 06:09 | PC.NURSE ---
SHIFT SUMMARY Has rested well. Says she is just really tired and just doesn't feel well. Has been afebrile tonight. IV antibiotics infused as ordered. Dialysis fistula in place to right arm. Says recently had surgery to fix fistula. Has dressing over it. Receives hemodialysis and says she does not urinate any on her own. Creatinine critical at 6.5 this morning which is expected with dialysis.
[2021-10-24 06:28] LABS: Glucose Point of Care 113 mg/dL (70-110)
[2021-10-24] MEDS: docusate sodium 100 mg Capsule PO ×2 (09:18→17:11)
[2021-10-24] MEDS: sevelamer 800 mg Tablet PO ×3 (09:19→17:16)
[2021-10-24] MEDS: pantoprazole DR 40 mg Tablet PO ×2 (09:19→17:11)
[2021-10-24] MEDS: aspirin 81 mg EC Tablet PO (09:19)
[2021-10-24] MEDS: cyclobenzaprine 10 mg Tablet PO ×3 (09:19→22:02)
[2021-10-24] MEDS: levothyroxine 50 mcg Tablet PO (09:19)
[2021-10-24] MEDS: cholecalciferol (vitamin D3) 1,000 unit Tablet 1000 UNIT PO (09:26)
[2021-10-24] MEDS: vancomycin 1,000 MG in sodium chloride 0.9% 250 ML 250 MG IV (10:17)
--- NOTE | 2021-10-24 10:48 | P.CONIM_ITS ---
Providers/Reason For Consult Consulting Physician/Specialty*: OLIVA STERLING MD / TELENEPHROLOGY Reason for Consult*: esrd CARE Requesting Physician: dR. Juan Watson and DR. Allen Attending Physician: Enedelia Allen MD Primary Care Provider: Char Parikh MD History of Present Illness History of Present Illness Dacia Kc is a 85 year old female h/o ESRD on HD MWF via Rt arm AVF. h/o type 2 dm, htn. pt here w/ weakness, fevers, chills, cough and cp. pt was oan-cultured- started on zyvox and zosyn. Renal called for ESRD care. Review of Systems Narrative: weak, fevers, lethargy, cough, ortega, sob, cp, nausea, swelling. rest of complete ROS is negative. Medications/Allergies Home Medications Medication Instructions Recorded Confirmed Last Taken Type Lactobacillus rhamnosus GG 10 1 cap PO DAILY 05/19/20 10/23/21 10/22/21 07:00 History billion cell capsule (Culturelle) aspirin 81 mg tablet,delayed 81 mg PO DAILY 05/19/20 10/23/21 10/22/21 07:00 History release chlorpheniramine maleate 4 mg 4 mg PO DAILY PRN 05/19/20 10/23/21 10/22/21 07:00 History tablet (ChlorTabs) cholecalciferol (vitamin D3) 25 25 mcg PO DAILY 05/19/20 10/23/21 10/22/21 11:00 History mcg (1,000 unit) capsule (Vitamin D3) cyclobenzaprine 10 mg tablet 10 mg PO DAILY 05/19/20 10/23/21 10/22/21 07:00 History docusate sodium 100 mg capsule 100 mg PO DAILY 05/19/20 10/23/21 10/22/21 07:00 History (Colace) fentanyl 37.5 mcg/hour transdermal 1 patch TRANSDERMAL Q72H 05/19/20 10/23/21 10/20/21 07:00 History patch levothyroxine 50 mcg tablet 50 mcg PO DAILY 05/19/20 10/23/21 10/22/21 06:00 History ondansetron HCl 4 mg tablet 4 mg PO Q6H PRN 05/19/20 10/23/21 10/13/21 16:30 History (Zofran) polyethylene glycol 3350 17 17 g PO DAILY 05/19/20 10/23/21 06/12/20 History gram/dose oral powder (Miralax) sennosides 8.6 mg tablet (senna) 8.6 mg PO BEDTIME 05/19/20 10/23/21 06/09/20 History sevelamer carbonate 800 mg tablet 2,400 mg PO TID 05/19/20 10/23/21 10/21/21 19:00 History (Renvela) tramadol 50 mg tablet 50 mg PO Q6H 05/19/20 10/23/21 10/21/21 18:00 History vitamin B complex and vitamin C 1 cap PO DAILY 05/19/20 10/23/21 10/21/21 18:42 History no.20-folic acid 1 mg capsule (Renal Caps) docusate sodium 100 mg capsule 100 mg PO BEDTIME PRN 06/12/20 10/23/21 10/21/21 18:43 History (Colace) pantoprazole 40 mg tablet,delayed 40 mg PO DAILY 06/12/20 10/23/21 10/22/21 07:00 History release (Protonix) sodium zirconium cyclosilicate 5 See Rx Instructions .ROUTE .COMPLEX 06/12/20 10/23/21 10/21/21 07:30 History gram oral powder packet (Lokelma) diclofenac sodium 1 % topical gel 2 g TOPICAL QID 10/05/21 10/23/21 Unknown History lorazepam 0.5 mg tablet (Ativan) 0.5 mg PO DAILY PRN 10/05/21 10/23/21 10/20/21 16:29 History metoprolol succinate 25 mg 12.5 mg PO DAILY PRN 10/05/21 10/23/21 10/21/21 18:42 History tablet,extended release 24 hr acetaminophen 500 mg tablet 500 mg PO QID 10/23/21 10/23/21 10/22/21 11:59 Histo ry bisacodyl 10 mg rectal suppository 10 mg OH DAILY PRN 10/23/21 10/23/21 10/21/21 08:19 History fluticasone propionate 50 50 mcg INTRANASAL BID 10/23/21 10/23/21 10/21/21 19:00 History mcg/actuation nasal spray,suspension losartan 100 mg tablet 100 mg PO DAILY 10/23/21 10/23/21 10/21/21 18:42 History Allergies Allergy/AdvReac Type Severity Reaction Status Date / Time vancomycin Allergy ADR-Itching Verified 10/23/21 11:53 Current Medications Generic Name Dose Route Start Last Admin Trade Name Freq PRN Reason Stop Dose Admin Acetaminophen 650 mg 10/23/21 02:28 10/23/21 02:32 Acetaminophen 325 Mg Tablet PO 650 mg Q6H PRN Administration Mild/Mod Pain Or Temp >/= 101 Aspirin 81 mg 10/23/21 09:00 10/24/21 09:19 Aspirin 81 Mg Ec Tablet PO 81 mg DAILY BLAYNE Administration Cyclobenzaprine HCl 10 mg 10/23/21 09:00 10/24/21 09:19 Cyclobenzaprine 10 Mg Tablet PO 10 mg TID BLAYNE Administration Docusate Sodium 100 mg 10/23/21 18:00 10/24/21 09:18 Docusate Sodium 100 Mg Capsule PO 100 mg BID BLAYNE Administration Fentanyl 1 patch 10/23/21 10:00 10/23/21 09:48 Fentanyl 12 Mcg Patch TRANSDERMA 1 patch Q72H BLAYNE Administration Fentanyl 1 patch 10/23/21 10:00 10/23/21 09:49 Fentanyl 25 Mcg Patch TRANSDERMA 1 patch Q72H BLAYNE Administration Heparin Sodium (Porcine) 5,000 unit 10/23/21 02:28 10/24/21 02:12 Heparin 5,000 Unit/Ml Inj 1 Ml SUBCUT 5,000 unit Q12H BLAYNE Administration Vancomycin HCl 1,000 mg/ 250 mls @ 250 mls/hr 10/24/21 10:30 10/24/21 10:17 Sodium Chloride IV 10/24/21 11:29 250 mls/hr ONCE ONE Administration Insulin Human Lispro 0 unit 10/23/21 08:00 10/24/21 07:16 Insulin Lispro 100 Unit/1 Ml SUBCUT Not Given TIDWM [facility] Protocol Lanolin 1 applic 10/24/21 05:27 10/24/21 05:40 Lanolin Oint 7 Gm TOPICAL 1 tube PRN PRN Administration DRYNESS Levothyroxine Sodium 50 mcg 10/23/21 09:00 10/24/21 09:19 Levothyroxine 50 Mcg Tablet PO 50 mcg DAILY BLAYNE Administration Losartan Potassium 50 mg 10/23/21 09:00 10/23/21 09:47 Losartan 50 Mg Tablet PO 50 mg DAILY BLAYNE Administration Pantoprazole Sodium 40 mg 10/23/21 09:00 10/24/21 09:[address] 40 Mg Tablet PO 40 mg BID BLAYNE Administration Sevelamer Carbonate 800 mg 10/23/21 09:00 10/24/21 09:19 Sevelamer 800 Mg Tablet PO 800 mg TID BLAYNE Administration Tramadol HCl 50 mg 10/23/21 02:28 10/24/21 09:19 Tramadol 50 Mg Tablet PO 50 mg Q6H BLAYNE Administration Vitamin D 1,000 unit 10/23/21 09:00 10/24/21 09:26 Cholecalciferol (Vitamin D3) 1,000 Unit Tablet PO 1,000 unit DAILY BLAYNE Administration PFSH Acute PFSH: Medical History Anemia of chronic disease Anxiety Constipation 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 GERD (gastroesophageal reflux disease) HTN (hypertension) Hypothyroidism Morbid obesity Surgical History A-V fistula H/O hemorrhoidectomy H/O: hysterectomy Family History Father Alcoholism /alcohol abuse Mother Hypertension Denies family history of Chronic kidney disease (CKD) Social History Smoking and tobacco status: never smoked Quit status (tobacco): has quit using tobacco Former quit date comment: 40 yrs ago Alcohol intake: current Alcohol intake frequency: holidays/special occasions only Housing: Retirement Marital status: Current occupational status: retired Vitals/I&O/Wt Last Vital Signs Temp 98.5 F 10/24/21 08:00 Pulse 74 10/24/21 08:00 Resp 18 10/24/21 08:00 BP 128/65 10/24/21 08:00 Pulse Ox 92 10/24/21 08:00 10/23/21 10/24/21 10/24/21 22:59 06:59 14:59 Intake Total 520 / 1090 420 / 1510 340 / 340 Output Total 0 / 0 Balance 520 / 1090 420 / 1510 340 / 340 Weight last 48 hrs Weight 127.006 kg Weight 127.006 kg Physical Exam Narrative: vs noted obese comfortable in bed heent- nc/at, eomi, anicteric neck supple lungs clear heart reg abd soft, nt, nd, + bs ext 1+ leg edema neuro- a,a, o x 3 Data : 10/24/21 05:09 10/24/21 05:09 Micro: Microbiology 10/22/21 19:00 Blood Culture - Preliminary Blood Staphylococcus aureus 10/22/21 17:07 Blood Culture - Preliminary Blood Staphylococcus aureus 10/23/21 06:06 MRSA Culture - Final Nose A&P Assessment and plan (1) ESRD (end stage renal disease) on dialysis: 1. fever w/u per medicine/ ID- renal dose abx 2. ESRD- hd in am 3. anemia- check iron studies 4. bp okay 5. dm care 6. hypothyroidism - check tsh seen and examine dw/ RN -telehealth visit- time spent 45 min Status: Chronic Plan as above Consult Attestations Medical Necessity Statement: per medicine- fevers Time Spent in Patient Care: Greater than 35 minutes (>than 50% of time spent in counselling and/or direct pt care on unit) . Coding Level of Care Code Acute Manager Talent Management for [facility] Diagnoses ESRD (end stage renal disease) on dialysis N18.6; Z99.2
[2021-10-24 11:23] LABS: Glucose Point of Care 150 mg/dL (70-110)
[2021-10-24] MEDS: insulin lispro 100 unit/1 mL SUBCUT (11:23)
[2021-10-24] MEDS: bisacodyl 10 mg Supp PR (11:24)
[2021-10-24 13:34] LABS: Hepatitis B Surface AB 49.2 (11.5-1000); Hepatitis B Surface Antigen Non-Reactive (Nonreactive); Hepatitis C Virus Antibody Non-Reactive (Nonreactive)
[2021-10-24] MEDS: SODIUM CHLORIDE 0.9% IV (14:15)
[2021-10-24] MEDS: DAPTOMYCIN IV (14:15)
--- NOTE | 2021-10-24 15:57 | PM.PN ---
Subjective Subjective: Last febrile on 10/23 at 2 AM. Feels tired today. States that her lungs feel heavy . Last dialysis session on Monday was only run for about 30 minutes. Staph aureus now obtained 4 out of 4 bottles on admission. Medications: Reviewed: Yes Vitals/I&O/Wt Last Vital Signs Temp 98.7 F 10/24/21 12:00 Pulse 66 10/24/21 12:00 Resp 18 10/24/21 12:00 BP 125/66 10/24/21 12:00 Pulse Ox 93 10/24/21 12:00 10/24/21 10/24/21 10/24/21 06:59 14:59 22:59 Intake Total 420 / 1510 825.833 / 825.833 100 / 925.833 Output Total 0 / 0 Balance 420 / 1510 825.833 / 825.833 100 / 925.833 Weight last 48 hrs Weight 127.006 kg Weight 127.006 kg Physical Exam Narrative: GEN: Awake, alert and oriented, no acute distress CVS: S1S2 N RS: Mild crackles to auscultation bilateral lower lung garner. Abd: Soft, nt/nd , bs+ DIRECTOR OF TRAINING: no focal neuro deficits Data : 10/24/21 05:09 10/24/21 05:09 Micro: Microbiology 10/22/21 17:07 Blood Culture - Preliminary Blood Staphylococcus aureus 10/22/21 19:00 Blood Culture - Preliminary Blood Staphylococcus aureus 10/24/21 10:35 Blood Culture - Preliminary Blood SPECIMEN COLLECTED 10/24/21 10:53 Blood Culture - Preliminary Blood SPECIMEN COLLECTED 10/23/21 06:06 MRSA Culture - Final Nose A&P Assessment and plan (1) Staphylococcus aureus bacteremia with sepsis: Status: Acute (2) Hypothyroidism: Status: Chronic Qualifiers: Hypothyroidism type: unspecified Qualified Code(s): E03.9 - Hypothyroidism, unspecified (3) Anemia of chronic disease: Status: Chronic (4) ESRD (end stage renal disease) on dialysis: Status: Chronic Plan Patient with end-stage renal disease on maintenance hemodialysis via right-sided AV fistula/graft with what sounds like recurrent occlusion of the fistula graft that gets vascular care at [facility]. Patient reports recent manipulation of the graft on October 19, followed by symptoms of fever chills by October 21, 2021. Found to have fever 103 Fahrenheit, tachycardia, elevated pro-Pedro, elevated CRP and blood culture positive for staph aureus 4 out of 4 bottles on admission. Source of staph aureus bacteremia appears to be related to recent manipulation of her AV graft site. Patient does have multiple small ulcerations and skin breaks around the site which could have been the possible portal of entry. Discontinue Zosyn and linezolid. Reported allergy to vancomycin as hives, therefore will use daptomycin 8 mg/kg IV every 48 hours for treatment of staph aureus bacteremia. Awaiting susceptibility of the isolate. If it turns out to be MSSA, can be transitioned to IV cefazolin. If it turns out to be MRSA, daptomycin can be continued based on susceptibilities. If continues to have persistent bacteremia in spite of appropriate medical therapy, will likely need vascular assessment of graft/fistula site additionally. At a minimum we will plan to use 6 weeks of IV antibiotics for endovascular infection. TTE with thickening of aortic valve, no gross vegetations noted. Repeat blood cultures to monitor for clearance. Renal consult to continue dialysis per her schedule. Complains of constipation, add Dulcolax suppository. Attestations Medical Necessity Statement*: Needs ongoing IV treatment for staph aureus bacteremia, awaiting clearance of blood cultures, need for maintenance hemodialysis Coding Level of Care Code Acute Ground Operations Superintendent for [facility] Diagnoses Staphylococcus aureus bacteremia with sepsis A41.01 Hypothyroidism E03.9 Hypothyroidism type: unspecified Anemia of chronic disease D63.8 ESRD (end stage renal disease) on dialysis N18.6; Z99.2
[2021-10-24 16:59] LABS: Glucose Point of Care 86 mg/dL (70-110)
[2021-10-24] MEDS: acetaminophen 325 mg Tablet 650 MG PO (17:12)
[2021-10-24 20:31] LABS: Glucose Point of Care 84 mg/dL (70-110)
[2021-10-24] MEDS: acetaminophen 500 mg Tablet PO (22:02)
[2021-10-24] MEDS: sennosides 8.6 mg Tablet PO (22:02)
[2021-10-24] MEDS: diclofenac 1% Topical Gel 100 gm 1 APPLIC TOPICAL (22:10)
[2021-10-25] VITALS (11 sets, daily range): BP systolic 106–173; BP diastolic 55–114; PULSE 66–82; RESP 18–21; TEMP 36.6–37.3; O2SAT 90–99
[2021-10-25] MEDS: TRAMadol 50 mg Tablet PO ×4 (03:16→21:14)
[2021-10-25] MEDS: heparin 5,000 unit/mL INJ 1 mL 5000 UNIT SUBCUT ×2 (03:17→13:04)
[2021-10-25 05:19] LABS: Basophils % 0.1 %; Eosinophils # 0.2 10^3/uL (0.0-0.8); Eosinophils % 2.7 %; Hematocrit 27.5 % (37.0-47.0); Lymphocytes # 0.6 10^3/uL (0.8-4.8); Lymphocytes % 8.7 %; Mean Corpuscular HGB Conc 32.7 g/dL (30.0-36.0); Mean Corpuscular Hemoglobin 31.7 pg (28.0-34.0); Mean Corpuscular Volume 96.8 fl (81-99); Monocytes # 0.7 10^3/uL (0.2-0.9); Monocytes % 9.8 %; Neutrophils # 5.58 10^3/uL (1.8-7.7); Neutrophils % 77.9 %; Nucleated Red Blood Cells % 0 %; Platelet Count 159 10^3/cmm (130-400); Red Blood Count 2.84 10^6/uL (4.1-5.3); Red Cell Distribution Width 15.5 % (12.1-15.1); White Blood Count 7.2 10^3/uL (4.0-10.0)
[2021-10-25 05:40] LABS: Alanine Aminotransferase 15 U/L (0-33); Alkaline Phosphatase 79 IU/L (35-105); Anion Gap 22.7 (5-19); Aspartate Amino Transferase 13 U/L (0-32); Blood Urea Nitrogen 77 mg/dL (8-23); Calcium 8.2 mg/dL (8.5-10.5); Carbon Dioxide 24 mmol/L (22-29); Chloride 89 mmol/L (98-107); Globulin 2.4 g/dL (1.3-4.6); Glucose 77 mg/dL (65-115); Magnesium 2.5 mg/dL (1.7-2.3); Osmolality Calculated 294 mOsm/kg (285-295); Phosphorus 4.7 mg/dL (2.5-4.5); Potassium 4.7 mmol/L (3.5-5.1); Sodium 131 mmol/L (136-145); Total Bilirubin 0.4 mg/dL (0.15-1.2); Total Protein 5.4 g/dL (6.6-8.7)
[2021-10-25 06:39] LABS: Glucose Point of Care 82 mg/dL (70-110)
[2021-10-25] MEDS: acetaminophen 500 mg Tablet PO ×4 (07:44→20:22)
[2021-10-25] MEDS: polyethylene glycol 3350 Pkt 17 gm PO (07:44)
[2021-10-25] MEDS: pantoprazole DR 40 mg Tablet PO ×2 (07:45→18:02)
[2021-10-25] MEDS: levothyroxine 50 mcg Tablet PO (07:45)
[2021-10-25] MEDS: docusate sodium 100 mg Capsule PO ×2 (07:45→18:02)
[2021-10-25] MEDS: cyclobenzaprine 10 mg Tablet PO ×3 (07:45→20:23)
[2021-10-25] MEDS: losartan 50 mg Tablet PO (07:45)
[2021-10-25] MEDS: sevelamer 800 mg Tablet PO ×2 (07:45→13:04)
[2021-10-25] MEDS: aspirin 81 mg EC Tablet PO (07:45)
--- NOTE | 2021-10-25 08:59 | P.PN_ITS ---
Subjective Subjective: c/o constipation. weak. no sob. + nausea. no ortega Medications: Reviewed: Yes Medication Review Details: Current Medications Acetaminophen (Acetaminophen 325 Mg Tablet) 650 mg PO Q6H PRN PRN Reason: Mild/Mod Pain Or Temp >/= 101 Last Admin: 10/24/21 17:12 Dose: 650 mg Documented by: Acetaminophen (Acetaminophen 500 Mg Tablet) 500 mg PO QID [facility] Last Admin: 10/25/21 07:44 Dose: 500 mg Documented by: Aspirin (Aspirin 81 Mg Ec Tablet) 81 mg PO DAILY [facility] Last Admin: 10/25/21 07:45 Dose: 81 mg Documented by: Bisacodyl (Bisacodyl 10 Mg Supp) 10 mg GA PRN PRN PRN Reason: CONSTIPATION Last Admin: 10/24/21 11:24 Dose: 10 mg Documented by: Bisacodyl (Bisacodyl 10 Mg Supp) 10 mg GA DAILY PRN PRN Reason: Constipation Cyclobenzaprine HCl (Cyclobenzaprine 10 Mg Tablet) 10 mg PO TID [facility] Last Admin: 10/25/21 07:45 Dose: 10 mg Documented by: Dextrose (Dextrose 50% Sdv 50 Ml) 25 ml IVP ONCE PRN; Protocol PRN Reason: hypoglycemia protocol Dextrose (Dextrose 50% Sdv 50 Ml) 50 ml IVP PRN PRN; Protocol PRN Reason: hypoglycemia protocol Diclofenac Sodium (Diclofenac 1% Topical Gel 100 Gm) 1 applic TOPICAL QID [facility] Last Admin: 10/24/21 22:10 Dose: 1 applic Documented by: Docusate Sodium (Docusate Sodium 100 Mg Capsule) 100 mg PO BID [facility] Last Admin: 10/25/21 07:45 Dose: 100 mg Documented by: Fentanyl (Fentanyl 12 Mcg Patch) 1 patch TRANSDERMA Q72H [facility] Last Admin: 10/23/21 09:48 Dose: 1 patch Documented by: Fentanyl (Fentanyl 25 Mcg Patch) 1 patch TRANSDERMA Q72H [facility] Last Admin: 10/23/21 09:49 Dose: 1 patch Documented by: Glucagon (Glucagon 1 Mg/Ml Inj 1 Ml) 1 mg IM ONCE PRN; Protocol PRN Reason: Adult Acute Hypoglycemia Prot. Heparin Sodium (Porcine) (Heparin 5,000 Unit/Ml Inj 1 Ml) 5,000 unit SUBCUT Q12H [facility] Last Admin: 10/25/21 03:17 Dose: 5,000 unit Documented by: Dextrose (D5w) 500 mls @ 100 mls/hr IV ONCE PRN; Protocol PRN Reason: Adult Acute Hypoglycemia Prot Daptomycin 1,000 mg/ Sodium (Chloride) 100 mls @ 100 mls/hr IV Q48H [facility]; Protocol Last Infusion: 10/24/21 15:27 Dose: Infused Documented by: Insulin Human Lispro (Insulin Lispro 100 Unit/1 Ml) 0 unit SUBCUT TIDWM [facility]; Protocol Last Admin: 10/25/21 07:05 Dose: Not Given Documented by: Lanolin (Lanolin Oint 7 Gm) 1 applic TOPICAL PRN PRN PRN Reason: DRYNESS Last Admin: 10/24/21 05:40 Dose: 1 tube Documented by: Levothyroxine Sodium (Levothyroxine 50 Mcg Tablet) 50 mcg PO DAILY [facility] Last Admin: 10/25/21 07:45 Dose: 50 mcg Documented by: Lorazepam (Lorazepam 0.5 Mg Tablet) 0.5 mg PO DAILY PRN PRN Reason: ANXIETY Losartan Potassium (Losartan 50 Mg Tablet) 50 mg PO DAILY [facility] Last Admin: 10/25/21 07:45 Dose: 50 mg Documented by: Ondansetron HCl (Ondansetron 2 Mg/Ml Sdv 2 Ml) 4 mg IVP Q8H PRN PRN Reason: vomiting, or N/V if npo Pantoprazole Sodium (Pantoprazole Dr 40 Mg Tablet) 40 mg PO BID [facility] Last Admin: 10/25/21 07:45 Dose: 40 mg Documented by: Polyethylene Glycol (Polyethylene Glycol 3350 Pkt 17 Gm) 17 gm PO DAILY [facility] Last Admin: 10/25/21 07:44 Dose: 17 gm Documented by: Senna (Sennosides 8.6 Mg Tablet) 8.6 mg PO BEDTIME [facility] Last Admin: 10/24/21 22:02 Dose: 8.6 mg Documented by: Sevelamer Carbonate (Sevelamer 800 Mg Tablet) 800 mg PO TID [facility] Last Admin: 10/25/21 07:45 Dose: 800 mg Documented by: Tramadol HCl (Tramadol 50 Mg Tablet) 50 mg PO Q6H [facility] Last Admin: 10/25/21 07:45 Dose: 50 mg Documented by: Vitamin D (Cholecalciferol (Vitamin D3) 1,000 Unit Tablet) 1,000 unit PO DAILY [facility] Last Admin: 10/25/21 07:45 Dose: Not Given Documented by: Vitals/I&O/Wt Last Vital Signs Temp 98.3 F 10/25/21 07:43 Pulse 68 10/25/21 07:43 Resp 20 H 10/25/21 07:43 BP 126/62 10/25/21 07:43 Pulse Ox 99 10/25/21 07:43 10/24/21 10/25/21 10/25/21 22:59 06:59 14:59 Intake Total 340 / 1165.833 360 / 1525.833 Balance 340 / 1165.833 360 / 1525.833 Weight last 48 hrs Weight 127.006 kg Physical Exam Narrative: vs noted obese NARD, uncomfortable in bed heent- nc/at, eomi, anicteric neck supple lungs clear heart reg abd soft, nt, nd, + bs ext 1+ leg edema RUE AVF w/ thrill and bruit neuro- a,a, o x 3 Data : 10/25/21 05:02 10/25/21 05:02 Micro: Microbiology 10/22/21 17:07 Blood Culture - Preliminary Blood Staphylococcus aureus 10/22/21 19:00 Blood Culture - Preliminary Blood Staphylococcus aureus 10/24/21 10:35 Blood Culture - Preliminary Blood SPECIMEN COLLECTED 10/24/21 10:53 Blood Culture - Preliminary Blood SPECIMEN COLLECTED A&P Assessment and plan (1) ESRD (end stage renal disease) on dialysis: 85 yr old female w/ staph aureus bacteremia 1. staph aureus bacteremia per medicine/ ID- renal dose abx -daptomycin - for 6 weeks -repeat blood cx today - Q if need to remove her graft -consider wbc scan -pt had intervention to AVG last week- i am concerned that is the source CRP 207 2. ESRD- hd now-remove 2.5 l, 2 k bath -phos okay 3. anemia- check iron studies 4. bp okay 5. dm care 6. hypothyroidism - check tsh 7. hyponatremia- monitor w/ HD seen and examined w/ RN -telehealth visit - time spent 30 min Status: Chronic Plan as above Attestations Medical Necessity Statement*: bacteremia, ESRD pt Time Spent in Patient Care: 16 - 35 minutes (>than 50% of time spent in co unselling and/or direct pt care on unit) . Coding Level of Care Code Acute Project Management Professional for [employer] Diagnoses ESRD (end stage renal disease) on dialysis N18.6; Z99.2
--- NOTE | 2021-10-25 10:37 | PC.CHAP ---
Pastoral Care Encounter/Spiritual Assessment Type of Contact [] Declined lip cutter and scorer visit [] Patient/Family/Request visit [] Outpatient visit [] Follow-up visit [] Physician referral [] Code/Alert [x] Routine visit [] Staff referral [] Actively dying [] Patient sleeping [] Family support [] [] Out of room [] Palliative care [] [] Receiving care in room [] Pre-surgical visit [] Trauma [] Long length of stay [] ICU visit [] Other: Relational/Emotional Strength [x] Patient feels connected with others/family/visitors/staff [] Distress [] Loneliness/isolation [] Abandonment Spirituality of Patient [x] Person of Sharda [] Attends Zoroastrian of their Sharda [] Believes in Prayer [] Reads Bible or Confucianist materials [] There are Spiritual issues to be addressed Gas Fitter Interventions [x] Prayer [x] Active listening [] Non-anxious presence [] Spiritual/emotional support [] Crisis/trauma care [] Spiritual counseling [] Bereavement support [] Provided bereavement packet [] Provided Bible/devotional materials [] Provided toy/stuffed animal, coloring book to patient or family member [] Provided Communion [] Anointing/[place] [] Salvation [x] Completed spiritual assessment [] Other: Impact on Illness or Injury [] Angry [] Fearful [] Anxious [] Often cries [] Exhaustion [] Unable to work [] Unable to attend church [] Unable to walk/stand [] Unable to read [] Unable to drive [] Unable to eat/drink [] Unable to sleep [] Unable to be with family [] Patient intubated [] Other: Summary Time spent with patient 10 min
--- NOTE | 2021-10-25 10:40 | PC.HD ---
Per technical support internship's orders, blood cultures x2 drawn during HD. Specimens given to laborer high density press.
[2021-10-25] MEDS: diclofenac 1% Topical Gel 100 gm 1 APPLIC TOPICAL ×3 (11:44→20:25)
[2021-10-25 11:55] LABS: Glucose Point of Care 92 mg/dL (70-110)
--- NOTE | 2021-10-25 12:32 | P.PN_ITS ---
Subjective Subjective: Patient was seen and examined this morning complaining of, severe constipation, was dialyzed today, blood cultures were obtained during dialysis. Continues to remain afebrile. Medications: Reviewed: Yes Medication Review Details: Generic Name Dose Route Start Last Admin Trade Name Jori PRN Reason Stop Dose Admin Acetaminophen 650 mg 10/23/21 02:28 10/24/21 17:12 Acetaminophen 32 5 Mg Tablet PO 650 mg Q6H PRN Administration Mild/Mod Pain Or Temp >/= 101 Acetaminophen 500 mg 10/24/21 17:00 10/25/21 11:44 Acetaminophen 50 0 Mg Tablet PO 500 mg QID BLAYNE Administration Aspirin 81 mg 10/23/21 09:00 10/25/21 07:45 Aspirin 81 Mg Ec Tablet PO 81 mg DAILY BLAYNE Administration Cyclobenzaprine HC l 10 mg 10/23/21 09:00 10/25/21 13:04 Cyclobenzaprine 10 Mg Tablet PO 10 mg TID BLAYNE Administration Diclofenac Sodium 1 applic 10/24/21 17:00 10/25/21 11:44 Diclofenac 1% To pical Gel 100 Gm TOPICAL 1 applic QID BLAYNE Administration Docusate Sodium 100 mg 10/23/21 18:00 10/25/21 07:45 Docusate Sodium 100 Mg Capsule PO 100 mg BID BLAYNE Administration Fentanyl 1 patch 10/23/21 10:00 10/23/21 09:48 Fentanyl 12 Mcg Patch TRANSDERMA 1 patch Q72H BLAYNE Administration Fentanyl 1 patch 10/23/21 10:00 10/23/21 09:49 Fentanyl 25 Mcg Patch TRANSDERMA 1 patch Q72H BLAYNE Administration Heparin Sodium (Po rcine) 5,000 unit 10/23/21 02:28 10/25/21 13:04 Heparin 5,000 Un it/Ml Inj 1 Ml SUBCUT 5,000 unit Q12H BLAYNE Administration Daptomycin 1,000 m g/ Sodium 100 mls @ 100 mls /hr 10/24/21 13:30 10/24/21 15:27 Chloride IV Infused Q48H [facility] Infusion Protocol Insulin Human Lisp ro 0 unit 10/23/21 08:00 10/25/21 12:04 Insulin Lispro 1 00 Unit/1 Ml SUBCUT Not Given TIDWM [facility] Protocol Lactulose 30 gm 10/25/21 09:12 10/25/21 13:04 Lactulose Oral L iq 20 Gm/30 Ml Udc PO 30 gm Q12H PRN Administration CONSTIPATION Lanolin 1 applic 10/24/21 05:27 10/24/21 05:40 Lanolin Oint 7 G m TOPICAL 1 tube PRN PRN Administration DRYNESS Levothyroxine Sodi um 50 mcg 10/23/21 09:00 10/25/21 07:45 Levothyroxine 50 Mcg Tablet PO 50 mcg DAILY BLAYNE Administration Pantoprazole Sodiu m 40 mg 10/23/21 09:00 10/25/21 07:[address] 40 Mg Tablet PO 40 mg BID BLAYNE Administration Polyethylene Glyco l 17 gm 10/25/21 09:00 10/25/21 07:44 Polyethylene Gly col 3350 Pkt 17 Gm PO 17 gm DAILY BLAYNE Administration Senna 8.6 mg 10/24/21 21:00 10/24/21 22:02 Sennosides 8.6 M g Tablet PO 8.6 mg BEDTIME BLAYNE Administration Sevelamer Carbonat e 800 mg 10/23/21 09:00 10/25/21 13:04 Sevelamer 800 Mg Tablet PO 800 mg TID BLAYNE Administration Tramadol HCl 50 mg 10/24/21 16:14 10/25/21 07:45 Tramadol 50 Mg T ablet PO 50 mg Q6H BLAYNE Administration Vitamin D 1,000 unit 10/23/21 09:00 10/25/21 07:45 Cholecalciferol (Vitamin D3) 1,000 Unit Tablet PO Not Given DAILY BLAYNE Vitals/I&O/Wt Last Vital Signs Temp 98.1 F 10/25/21 10:37 Pulse 66 10/25/21 10:37 Resp 18 10/25/21 10:37 BP 158/55 10/25/21 10:37 Pulse Ox 99 10/25/21 07:43 10/24/21 10/25/21 10/25/21 22:59 06:59 14:59 Intake Total 340 / 1165.833 360 / 1525.833 200 / 200 Balance 340 / 1165.833 360 / 1525.833 200 / 200 Physical Exam Const: COMMON NORMALS: patient oriented x3 HENMT: COMMON NORMALS: normocephalic, atraumatic, hearing grossly normal bilaterally and external ears normal HEAD & SCALP: normocephalic and atraumatic EXTERNAL EAR: Yes external ears normal Eye: COMMON NORMALS: no scleral icterus GENERAL EYE: appearance normal, both eyes and all related structures Chest: COMMONS NORMALS: normal inspection of the chest and normal palpation of entire chest wall CHEST: Yes Symmetrical chest wall rise Resp: COMMON NORMALS: normal respiratory effort, No retractions, No use of accessory muscles and clear to auscultation bilaterally EFFORT & INSPECTION: Yes symmetric chest movement AUSCULTATION: clear to auscultation bilaterally Cardio: COMMON NORMALS: regular rate, regular rhythm, S1 normal heart sound present, S2 normal heart sound present, No gallops present (Cardio), No murmurs present (Cardio), No rub (Cardio) and Peripheral pulses 2+ throughout RATE: regular rate RHYTHM: regular rhythm HEART SOUNDS: S1 normal heart sound present and S2 normal heart sound present PERIPHERAL PULSES: Peripheral pulses 2+ throughout GI: COMMON NORMALS: Normal to inspection, nondistended, normoactive bowel sounds present, Soft to palpation, non-tender, No hepatosplenomegaly present and no masses AUSCULTATION: Yes normoactive bowel sounds PALPATION: Yes Soft to palpation and Yes No hepatosplenomegaly present RECTAL EXAM: deferred Extremity: COMMON NORMALS: no clubbing, cyanosis or edema and no pedal edema Neuro: COMMON NORMALS: patient oriented x3 Data : 10/25/21 05:02 10/25/21 05:02 Micro: Microbiology 10/24/21 10:35 Blood Culture - Preliminary Blood NEGATIVE TO DATE 10/24/21 10:53 Blood Culture - Preliminary Blood NEGATIVE TO DATE 10/22/21 17:07 Blood Culture - Preliminary Blood Staphylococcus aureus 10/22/21 19:00 Blood Culture - Preliminary Blood Staphylococcus aureus A&P Assessment and plan (1) Staphylococcus aureus bacteremia with sepsis: Status: Acute (2) Hypothyroidism: Status: Chronic Qualifiers: Hypothyroidism type: unspecified Qualified Code(s): E03.9 - Hypothyroidism, unspecified (3) Anemia of chronic disease: Status: Chronic (4) ESRD (end stage renal disease) on dialysis: Status: Chronic Plan Patient with end-stage renal disease on maintenance hemodialysis via right-sided AV fistula/graft with what sounds like recurrent occlusion of the fistula graft that gets vascular care at [facility]. Patient reports recent manipulation of the graft on October 19, followed by symptoms of fever chills by October 21, 2021. Found to have fever 103 Fahrenheit, tachycardia, elevated pro-Pedro, eleva mario CRP and blood culture positive for staph aureus 4 out of 4 bottles on admission. Source of staph aureus bacteremia appears to be related to recent manipulation of her AV graft site. Patient does have multiple small ulcerations and skin breaks around the site which could have been the possible portal of entry. Discontinue Zosyn and linezolid. Reported allergy to vancomycin as hives, therefore will use daptomycin 8 mg/kg IV every 48 hours for treatment of staph aureus bacteremia. Awaiting valladares sceptibility of the isolate. If it turns out to be MSSA, can be transitioned to IV cefazolin. If it turns out to be MRSA, daptomycin can be continued based on susceptibilities. If continues to have persistent bacteremia in spite of appropriate medical therapy, will likely need vascular assessment of graft/fistula site additionally. At a minimum we will plan to use 6 weeks of IV antibiotics for endovascular infection. TTE with thickening of aortic valve, no gross vegetations noted. Repeat blood cultures to monitor for clearance. Renal consult to continue dialysis per her schedule. Complains of constipation: Current plan is to give her enema today Attestations Medical Necessity Statement*: Patient is to be in hospital for management of staff aureus bacteremia, continued need for IV antibiotics, need for continued hemodialysis Coding Level of Care Code Acute Residential Plumber for [facility] Fwd Exam Comprehensive Diagnoses Staphylococcus aureus bacteremia with sepsis A41.01 Hypothyroidism E03.9 Hypothyroidism type: unspecified Anemia of chronic disease D63.8 ESRD (end stage renal disease) on dialysis N18.6; Z99.2
[2021-10-25] MEDS: lactulose oral liq 20 gm/30 mL UDC 30 GM PO (13:04)
[2021-10-25 17:41] LABS: Glucose Point of Care 127 mg/dL (70-110)
[2021-10-25 20:59] LABS: Glucose Point of Care 145 mg/dL (70-110)
[2021-10-26] MEDS: heparin 5,000 unit/mL INJ 1 mL 5000 UNIT SUBCUT (03:24)
[2021-10-26] MEDS: TRAMadol 50 mg Tablet PO ×4 (03:24→21:44)
[2021-10-26 03:34] VITALS: BP 107/38; PULSE 64; RESP 19; TEMP 36.7; O2SAT 94
[2021-10-26 05:33] LABS: Basophils % 0.1 %; Eosinophils # 0.1 10^3/uL (0.0-0.8); Eosinophils % 1.7 %; Hematocrit 28.5 % (37.0-47.0); Hemoglobin 8.7 g/dL (11.5-15.3); Lymphocytes # 0.8 10^3/uL (0.8-4.8); Lymphocytes % 11.3 %; Mean Corpuscular HGB Conc 30.5 g/dL (30.0-36.0); Mean Corpuscular Hemoglobin 30.9 pg (28.0-34.0); Mean Corpuscular Volume 101.1 fl (81-99); Mean Platelet Volume 10.4 fL (7.4-10.4); Monocytes # 0.9 10^3/uL (0.2-0.9); Monocytes % 13.3 %; Neutrophils # 5.02 10^3/uL (1.8-7.7); Neutrophils % 72.4 %; Nucleated Red Blood Cells % 0 %; Platelet Count 180 10^3/cmm (130-400); Red Blood Count 2.82 10^6/uL (4.1-5.3); Red Cell Distribution Width 15.3 % (12.1-15.1); White Blood Count 6.9 10^3/uL (4.0-10.0)
[2021-10-26 05:46] VITALS: PULSE 59
[2021-10-26 05:48] LABS: Alanine Aminotransferase 14 U/L (0-33); Albumin Level 2.8 g/dL (3.5-5.2); Alkaline Phosphatase 65 IU/L (35-105); Anion Gap 20.8 (5-19); Aspartate Amino Transferase 12 U/L (0-32); Blood Urea Nitrogen 44 mg/dL (8-23); Carbon Dioxide 25 mmol/L (22-29); Chloride 98 mmol/L (98-107); Globulin 2.4 g/dL (1.3-4.6); Glucose 92 mg/dL (65-115); Magnesium 2.5 mg/dL (1.7-2.3); Osmolality Calculated 301 mOsm/kg (285-295); Potassium 3.8 mmol/L (3.5-5.1); Sodium 140 mmol/L (136-145); Total Bilirubin 0.3 mg/dL (0.15-1.2); Total Protein 5.2 g/dL (6.6-8.7)
[2021-10-26 06:47] LABS: Glucose Point of Care 99 mg/dL (70-110)
[2021-10-26 08:00] VITALS: BP 150/81; PULSE 67; RESP 20; TEMP 36.4; O2SAT 96
[2021-10-26] MEDS: sevelamer 800 mg Tablet PO (08:30)
[2021-10-26] MEDS: cholecalciferol (vitamin D3) 1,000 unit Tablet 1000 UNIT PO (08:31)
[2021-10-26] MEDS: pantoprazole DR 40 mg Tablet PO ×2 (08:31→18:40)
[2021-10-26] MEDS: acetaminophen 500 mg Tablet PO ×4 (08:31→21:44)
[2021-10-26] MEDS: aspirin 81 mg EC Tablet PO (08:31)
[2021-10-26] MEDS: fentaNYL 12 mcg Patch 1 PATCH TRANSDERMA ×2 (08:31→08:39)
[2021-10-26] MEDS: levothyroxine 50 mcg Tablet PO (08:31)
[2021-10-26] MEDS: cyclobenzaprine 10 mg Tablet PO ×3 (08:31→21:44)
--- NOTE | 2021-10-26 08:50 | P.PN_ITS ---
Subjective Subjective: feels better. c/o arm pain. no n/v/f/c/ortega/d Medications: Reviewed: Yes Medication Review Details: Current Medications Acetaminophen (Acetaminophen 325 Mg Tablet) 650 mg PO Q6H PRN PRN Reason: Mild/Mod Pain Or Temp >/= 101 Last Admin: 10/24/21 17:12 Dose: 650 mg Documented by: Acetaminophen (Acetaminophen 500 Mg Tablet) 500 mg PO QID [facility] Last Admin: 10/26/21 08:31 Dose: 500 mg Documented by: Aspirin (Aspirin 81 Mg Ec Tablet) 81 mg PO DAILY [facility] Last Admin: 10/26/21 08:31 Dose: 81 mg Documented by: Bisacodyl (Bisacodyl 10 Mg Supp) 10 mg OH DAILY PRN PRN Reason: Constipation Cyclobenzaprine HCl (Cyclobenzaprine 10 Mg Tablet) 10 mg PO TID [facility] Last Admin: 10/26/21 08:31 Dose: 10 mg Documented by: Dextrose (Dextrose 50% Sdv 50 Ml) 25 ml IVP ONCE PRN; Protocol PRN Reason: hypoglycemia protocol Dextrose (Dextrose 50% Sdv 50 Ml) 50 ml IVP PRN PRN; Protocol PRN Reason: hypoglycemia protocol Diclofenac Sodium (Diclofenac 1% Topical Gel 100 Gm) 1 applic TOPICAL QID [facility] Last Admin: 10/25/21 20:25 Dose: 1 applic Documented by: Docusate Sodium (Docusate Sodium 100 Mg Capsule) 100 mg PO BID [facility] Last Admin: 10/26/21 08:32 Dose: Not Given Documented by: Fentanyl (Fentanyl 12 Mcg Patch) 1 patch TRANSDERMA Q72H [facility] Last Admin: 10/26/21 08:31 Dose: 1 patch Documented by: Fentanyl (Fentanyl 25 Mcg Patch) 1 patch TRANSDERMA Q72H [facility] Last Admin: 10/23/21 09:49 Dose: 1 patch Documented by: Glucagon (Glucagon 1 Mg/Ml Inj 1 Ml) 1 mg IM ONCE PRN; Protocol PRN Reason: Adult Acute Hypoglycemia Prot. Heparin Sodium (Porcine) (Heparin 5,000 Unit/Ml Inj 1 Ml) 5,000 unit SUBCUT Q12H [facility] Last Admin: 10/26/21 03:24 Dose: 5,000 unit Documented by: Dextrose (D5w) 500 mls @ 100 mls/hr IV ONCE PRN; Protocol PRN Reason: Adult Acute Hypoglycemia Prot Daptomycin 1,000 mg/ Sodium (Chloride) 100 mls @ 100 mls/hr IV Q48H [facility]; Protocol Last Infusion: 10/24/21 15:27 Dose: Infused Documented by: Insulin Human Lispro (Insulin Lispro 100 Unit/1 Ml) 0 unit SUBCUT TIDWM [facility]; Protocol Last Admin: 10/26/21 06:56 Dose: Not Given Documented by: Lactulose (Lactulose Oral Liq 20 Gm/30 Ml Udc) 30 gm PO Q12H PRN PRN Reason: CONSTIPATION Last Admin: 10/25/21 13:04 Dose: 30 gm Documented by: Lanolin (Lanolin Oint 7 Gm) 1 applic TOPICAL PRN PRN PRN Reason: DRYNESS Last Admin: 10/24/21 05:40 Dose: 1 tube Documented by: Levothyroxine Sodium (Levothyroxine 50 Mcg Tablet) 50 mcg PO DAILY [facility] Last Admin: 10/26/21 08:31 Dose: 50 mcg Documented by: Lorazepam (Lorazepam 0.5 Mg Tablet) 0.5 mg PO DAILY PRN PRN Reason: ANXIETY Ondansetron HCl (Ondansetron 2 Mg/Ml Sdv 2 Ml) 4 mg IVP Q8H PRN PRN Reason: vomiting, or N/V if npo Pantoprazole Sodium (Pantoprazole Dr 40 Mg Tablet) 40 mg PO BID [facility] Last Admin: 10/26/21 08:31 Dose: 40 mg Documented by: Polyethylene Glycol (Polyethylene Glycol 3350 Pkt 17 Gm) 17 gm PO DAILY [facility] Last Admin: 10/26/21 08:32 Dose: Not Given Documented by: Senna (Sennosides 8.6 Mg Tablet) 8.6 mg PO BEDTIME [facility] Last Admin: 10/25/21 21:12 Dose: Not Given Documented by: Sevelamer Carbonate (Sevelamer 800 Mg Tablet) 800 mg PO TID [facility] Last Admin: 10/26/21 08:30 Dose: 800 mg Documented by: Tramadol HCl (Tramadol 50 Mg Tablet) 50 mg PO Q6H [facility] Last Admin: 10/26/21 08:30 Dose: 50 mg Documented by: Vitamin D (Cholecalciferol (Vitamin D3) 1,000 Unit Tablet) 1,000 unit PO DAILY [facility] Last Admin: 10/26/21 08:31 Dose: 1,000 unit Documented by: Vitals/I&O/Wt Last Vital Signs Temp 97.6 F 10/26/21 08:00 Pulse 67 10/26/21 08:00 Resp 20 H 10/26/21 08:00 BP 150/81 10/26/21 08:00 Pulse Ox 96 10/26/21 08:00 10/25/21 10/26/21 10/26/21 22:59 06:59 14:59 Intake Total 120 / 620 Balance 120 / -2180 Weight last 48 hrs Weight 96.6 kg Physical Exam Narrative: vs noted obese NARD, comfortable in bed heent- nc/at, eomi, anicteric neck supple lungs clear heart reg abd soft, nt, nd, + bs ext 1+ leg edema RUE AVF w/ thrill and bruit neuro- a,a, o x 3 Data : 10/26/21 05:18 10/26/21 05:18 Micro: Microbiology 10/22/21 19:00 Blood Culture - Final Blood Staphylococcus aureus 10/22/21 17:07 Blood Culture - Final Blood Staphylococcus aureus 10/25/21 Unknown Blood Culture - Preliminary Blood SPECIMEN COLLECTED 10/25/21 Unknown Blood Culture - Preliminary Blood SPECIMEN COLLECTED 10/24/21 10:35 Blood Culture - Preliminary Blood NEGATIVE TO DATE 10/24/21 10:53 Blood Culture - Preliminary Blood NEGATIVE TO DATE A&P Assessment and plan (1) ESRD (end stage renal disease) on dialysis: 85 yr old female w/ staph aureus bacteremia 1. methacillin sensitive staph aureus bacteremia- treat per medicine/ ID- renal dose abx -daptomycin - for 6 weeks -repeat blood cx so far NGTD -consider wbc scan -for now would attempt to treat w/ iv abx -pt had intervention to AVG last week- i am concerned that it may be the source -i spoke to Dr Stormy [facility]- [phone] -follows w/ Dr Ricky Garibay CRP 207 2. ESRD- s/p HD yesterday -repeat HD in am-remove 2.5 l, 2 k bath -phos binders 3. anemia- check iron studies 4. bp okay 5. dm care 6. hypothyroidism - normal tsh 7. hyponatremia- improvedr w/ HD seen and examined w/ RN -telehealth visit - time spent 30 min Status: Chronic Plan as above Attestations Medical Necessity Statement*: mssa bacteremia Time Spent in Patient Care: 16 - 35 minutes (>than 50% of time spent in counselling and/or direct pt care on unit) . Coding Level of Care Code Acute Regional Administrative Assistant for [facility] Fwd Diagnoses ESRD (end stage renal disease) on dialysis N18.6; Z99.2
[2021-10-26] MEDS: fentaNYL 25 mcg Patch 1 PATCH TRANSDERMA (08:58)
--- NOTE | 2021-10-26 09:10 | NM_ITS ---
WS: [id number] NUCLEAR MEDICINE CERETEC WHITE BLOOD CELL STUDY INDICATION: Fever chills fatigue AV fistula repair. TECHNIQUE: 17.1 mCi technetium 99m Ceretec labeled white blood cell study. Anterior and posterior who le-body imaging was obtained with attention to the RIGHT forearm AV fistula. FINDINGS: Normal activity in the spleen and liver. Normal proximal bone marrow activity. No evidence of abnorma l uptake within the forearm to indicate infection. No abnormal areas of uptake. No other suspicious f indings. NM/NM CERETEC WBC scan* [id number] IMPRESSION: Normal white blood cell study
[2021-10-26] MEDS: diclofenac 1% Topical Gel 100 gm 1 APPLIC TOPICAL ×2 (10:20→21:43)
[2021-10-26] MEDS: sevelamer 800 mg Tablet 1600 MG PO ×3 (10:21→18:40)
--- NOTE | 2021-10-26 10:49 | PC.SOCIAL ---
IMM Update Pg. 2 of IMM updated and reviewed with patient and her daughter at bedside. Copy provided.
[2021-10-26 11:18] VITALS: BP 116/61; PULSE 63; RESP 18; TEMP 36.7; O2SAT 93
[2021-10-26 11:29] LABS: Glucose Point of Care 124 mg/dL (70-110)
[2021-10-26] MEDS: epoetin alfa 1000 Unit/0.05 mL (ESRD) 20000 UNIT SUBCUT (12:24)
--- NOTE | 2021-10-26 16:18 | P.PN_ITS ---
Subjective Subjective: Patient was seen and examined this morning, denies any active complaints, blood culture has grown MSSA Tagged White blood cell scan : is normal Medications: Reviewed: Yes Medication Review Details: Generic Name Dose Route Start Last Admin Trade Name Jori PRN Reason Stop Dose Admin Acetaminophen 650 mg 10/23/21 02:28 10/24/21 17:12 Acetaminophen 32 5 Mg Tablet PO 650 mg Q6H PRN Administration Mild/Mod Pain Or Temp >/= 101 Acetaminophen 500 mg 10/24/21 17:00 10/25/21 11:44 Acetaminophen 50 0 Mg Tablet PO 500 mg QID BLAYNE Administration Aspirin 81 mg 10/23/21 09:00 10/25/21 07:45 Aspirin 81 Mg Ec Tablet PO 81 mg DAILY BLAYNE Administration Cyclobenzaprine HC l 10 mg 10/23/21 09:00 10/25/21 13:04 Cyclobenzaprine 10 Mg Tablet PO 10 mg TID BLAYNE Administration Diclofenac Sodium 1 applic 10/24/21 17:00 10/25/21 11:44 Diclofenac 1% To pical Gel 100 Gm TOPICAL 1 applic QID [facility] Administration Docusate Sodium 100 mg 10/23/21 18:00 10/25/21 07:45 Docusate Sodium 100 Mg Capsule PO 100 mg BID BLAYNE Administration Fentanyl 1 patch 10/23/21 10:00 10/23/21 09:48 Fentanyl 12 Mcg Patch TRANSDERMA 1 patch Q72H BLAYNE Administration Fentanyl 1 patch 10/23/21 10:00 10/23/21 09:49 Fentanyl 25 Mcg Patch TRANSDERMA 1 patch Q72H BLAYNE Administration Heparin Sodium (Po rcine) 5,000 unit 10/23/21 02:28 10/25/21 13:04 Heparin 5,000 Un it/Ml Inj 1 Ml SUBCUT 5,000 unit Q12H BLAYNE Administration Daptomycin 1,000 m g/ Sodium 100 mls @ 100 mls /hr 10/24/21 13:30 10/24/21 15:27 Chloride IV Infused Q48H [facility] Infusion Protocol Insulin Human Lisp ro 0 unit 10/23/21 08:00 10/25/21 12:04 Insulin Lispro 1 00 Unit/1 Ml SUBCUT Not Given TIDWM [facility] Protocol Lactulose 30 gm 10/25/21 09:12 10/25/21 13:04 Lactulose Oral L iq 20 Gm/30 Ml Udc PO 30 gm Q12H PRN Administration CONSTIPATION Lanolin 1 applic 10/24/21 05:27 10/24/21 05:40 Lanolin Oint 7 G m TOPICAL 1 tube PRN PRN Administration DRYNESS Levothyroxine Sodi um 50 mcg 10/23/21 09:00 10/25/21 07:45 Levothyroxine 50 Mcg Tablet PO 50 mcg DAILY BLAYNE Administration Pantoprazole Sodiu m 40 mg 10/23/21 09:00 10/25/21 07:[address] 40 Mg Tablet PO 40 mg BID BLAYNE Administration Polyethylene Glyco l 17 gm 10/25/21 09:00 10/25/21 07:44 Polyethylene Gly col 3350 Pkt 17 Gm PO 17 gm DAILY BLAYNE Administration Senna 8.6 mg 10/24/21 21:00 10/24/21 22:02 Sennosides 8.6 M g Tablet PO 8.6 mg BEDTIME BLAYNE Administration Sevelamer Carbonat e 800 mg 10/23/21 09:00 10/25/21 13:04 Sevelamer 800 Mg Tablet PO 800 mg TID BLAYNE Administration Tramadol HCl 50 mg 10/24/21 16:14 10/25/21 07:45 Tramadol 50 Mg T ablet PO 50 mg Q6H BLAYNE Administration Vitamin D 1,000 unit 10/23/21 09:00 10/25/21 07:45 Cholecalciferol (Vitamin D3) 1,000 Unit Tablet PO Not Given DAILY BLAYNE Vitals/I&O/Wt Last Vital Signs Temp 98.1 F 10/26/21 11:18 Pulse 63 10/26/21 11:18 Resp 18 10/26/21 11:18 BP 116/61 10/26/21 11:18 Pulse Ox 93 10/26/21 11:18 10/26/21 10/26/21 10/26/21 06:59 14:59 22:59 Intake Total 850 / 850 Balance 850 / 850 Weight last 48 hrs Weight 96.6 kg Physical Exam Const: COMMON NORMALS: patient oriented x3 HENMT: COMMON NORMALS: normocephalic, atraumatic, hearing grossly normal bilaterally and external ears normal HEAD & SCALP: normocephalic and atraumatic EXTERNAL EAR: Yes external ears normal Eye: COMMON NORMALS: no scleral icterus GENERAL EYE: appearance normal, both eyes and all related structures Chest: COMMONS NORMALS: normal inspection of the chest and normal palpation of entire chest wall CHEST: Yes Symmetrical chest wall rise Resp: COMMON NORMALS: normal respiratory effort, No retractions, No use of accessory muscles and clear to auscultation bilaterally EFFORT & INSPECTION: Yes symmetric chest movement AUSCULTATION: clear to auscultation bilaterally Cardio: COMMON NORMALS: regular rate, regular rhythm, S1 normal heart sound present, S2 normal heart sound present, No gallops present (Cardio), No murmurs present (Cardio), No rub (Cardio) and Peripheral pulses 2+ throughout RATE: regular rate RHYTHM: regular rhythm HEART SOUNDS: S1 normal heart sound present and S2 normal heart sound present PERIPHERAL PULSES: Peripheral pulses 2+ throughout GI: COMMON NORMALS: Normal to inspection, nondistended, normoactive bowel sounds present, Soft to palpation, non-tender, No hepatosplenomegaly present and no masses AUSCULTATION: Yes normoactive bowel sounds PALPATION: Yes Soft to palpation and Yes No hepatosplenomegaly present RECTAL EXAM: deferred Extremity: COMMON NORMALS: no clubbing, cyanosis or edema and no pedal edema Neuro: COMMON NORMALS: patient oriented x3 Data : 10/26/21 05:18 10/26/21 05:18 Micro: Microbiology 10/25/21 Unknown Blood Culture - Preliminary Blood NEGATIVE TO DATE 10/25/21 Unknown Blood Culture - Preliminary Blood NEGATIVE TO DATE 10/22/21 19:00 Blood Culture - Final Blood Staphylococcus aureus 10/22/21 17:07 Blood Culture - Final Blood Staphylococcus aureus 10/24/21 10:35 Blood Culture - Preliminary Blood NEGATIVE TO DATE 10/24/21 10:53 Blood Culture - Preliminary Blood NEGATIVE TO DATE A&P Assessment and plan (1) Staphylococcus aureus bacteremia with sepsis: Status: Acute (2) Hypothyroidism: Status: Chronic Qualifiers: Hypothyroidism type: unspecified Qualified Code(s): E03.9 - Hypothyroidism, unspecified (3) Anemia of chronic disease: Status: Chronic (4) ESRD (end stage renal disease) on dialysis: Status: Chronic Plan Patient with end-stage renal disease on maintenance hemodialysis via right-sided AV fistula/graft with what sounds like recurrent occlusion of the fistula graft that gets vascular care at [facility]. Patient reports recent manipulation of the graft on October 19, followed by symptoms of fever chills by October 21, 2021. Found to have fever 103 Fahrenheit, tachycardia, elevated pro-Pedro, elevated CRP and blood culture positive for staph aureus 4 out of 4 bottles on admission. Source of staph aureus bacteremia appears to be related to recent manipulation of her AV graft site. Patient does have multiple small ulcerations and skin breaks around the site which could have been the possible portal of entry. Discontinue Zosyn and linezolid. Reported allergy to vancomycin as hives, therefore will use daptomycin 8 mg/kg IV every 48 hours for treatment of staph aureus bacteremia. Awaiting susceptibility of the isolate. If it turns out to be MSSA, can be transitioned to IV cefazolin. If it turns out to be MRSA, daptomycin can be continued based on susceptibilities. If continues to have persistent bacteremia in spite of appropriate medical therapy, will likely need vascular assessment of graft/fistula site additionally. At a minimum we will plan to use 6 weeks of IV antibiotics for endovascular infection. TTE with thickening of aortic valve, no gross vegetations noted. Repeat blood cultures to monitor for clearance. Renal consult to continue dialysis per her schedule. Complains of constipation: Current plan is to give her enema today Attestations Medical Necessity Statement*: Patient is to be in hospital for management of staff aureus bacteremia, continued need for IV antibiotics, need for continued hemodialysis. Coding Level of Care Code Acute Concrete Block Layer for [facility]ari Diagnoses Staphylococcus aureus bacteremia with sepsis A41.01 Hypothyroidism E03.9 Hypothyroidism type: unspecified Anemia of chronic disease D63.8 ESRD (end stage renal disease) on dialysis N18.6; Z99.2
[2021-10-26 16:40] LABS: Glucose Point of Care 176 mg/dL (70-110)
[2021-10-26] MEDS: DAPTOMYCIN IV (18:41)
[2021-10-26] MEDS: SODIUM CHLORIDE 0.9% IV (18:41)
[2021-10-26] MEDS: LORazepam 0.5 mg Tablet PO (18:43)
[2021-10-26 20:00] VITALS: BP 95/63; PULSE 70; RESP 17; TEMP 36.6; O2SAT 95
[2021-10-26 21:09] LABS: Glucose Point of Care 132 mg/dL (70-110)
[2021-10-26] MEDS: sennosides 8.6 mg Tablet PO (21:44)
[2021-10-26 22:00] VITALS: PULSE 61
[2021-10-27] VITALS: BP 101/59; PULSE 64; RESP 16; TEMP 36.7; O2SAT 93
[2021-10-27] MEDS: heparin 5,000 unit/mL INJ 1 mL 5000 UNIT SUBCUT (01:44)
[2021-10-27 01:53] LABS: Glucose Point of Care 110 mg/dL (70-110)
[2021-10-27 04:00] VITALS: BP 128/64; PULSE 61; RESP 17; TEMP 36.6; O2SAT 93
[2021-10-27] MEDS: TRAMadol 50 mg Tablet PO (04:06)
--- NOTE | 2021-10-27 04:58 | PC.NURSE ---
0500 Lab unable to obtain blood for ordered tests. Will advise day shift nurse to ask dialysis to draw during treatment.
[2021-10-27 06:20] LABS: Glucose Point of Care 111 mg/dL (70-110)
[2021-10-27 07:48] VITALS: BP 134/52; PULSE 60; RESP 16; O2SAT 95
--- NOTE | 2021-10-27 08:32 | PM.PN ---
Subjective Subjective: weak. tired. feeling better. some edema. no n/v/f/c/ortega/d Medications: Reviewed: Yes Medication Review Details: Current Medications Acetaminophen (Acetaminophen 325 Mg Tablet) 650 mg PO Q6H PRN PRN Reason: Mild/Mod Pain Or Temp >/= 101 Last Admin: 10/24/21 17:12 Dose: 650 mg Documented by: Acetaminophen (Acetaminophen 500 Mg Tablet) 500 mg PO QID [facility] Last Admin: 10/26/21 21:44 Dose: 500 mg Documented by: Aspirin (Aspirin 81 Mg Ec Tablet) 81 mg PO DAILY [facility] Last Admin: 10/26/21 08:31 Dose: 81 mg Documented by: Bisacodyl (Bisacodyl 10 Mg Supp) 10 mg [place] DAILY PRN PRN Reason: Constipation Cyclobenzaprine HCl (Cyclobenzaprine 10 Mg Tablet) 10 mg PO TID [facility] Last Admin: 10/26/21 21:44 Dose: 10 mg Documented by: Dextrose (Dextrose 50% Sdv 50 Ml) 25 ml IVP ONCE PRN; Protocol PRN Reason: hypoglycemia protocol Dextrose (Dextrose 50% Sdv 50 Ml) 50 ml IVP PRN PRN; Protocol PRN Reason: hypoglycemia protocol Diclofenac Sodium (Diclofenac 1% Topical Gel 100 Gm) 1 applic TOPICAL QID [facility] Last Admin: 10/26/21 21:43 Dose: 1 applic Documented by: Docusate Sodium (Docusate Sodium 100 Mg Capsule) 100 mg PO BID [facility] Last Admin: 10/26/21 18:38 Dose: Not Given Documented by: Fentanyl (Fentanyl 12 Mcg Patch) 1 patch TRANSDERMA Q72H [facility] Last Admin: 10/26/21 08:39 Dose: 1 patch Documented by: Fentanyl (Fentanyl 25 Mcg Patch) 1 patch TRANSDERMA Q72H [facility] Last Admin: 10/26/21 08:58 Dose: 1 patch Documented by: Glucagon (Glucagon 1 Mg/Ml Inj 1 Ml) 1 mg IM ONCE PRN; Protocol PRN Reason: Adult Acute Hypoglycemia Prot. Heparin Sodium (Porcine) (Heparin 5,000 Unit/Ml Inj 1 Ml) 5,000 unit SUBCUT Q12H [facility] Last Admin: 10/27/21 01:44 Dose: 5,000 unit Documented by: Dextrose (D5w) 500 mls @ 100 mls/hr IV ONCE PRN; Protocol PRN Reason: Adult Acute Hypoglycemia Prot Daptomycin 1,000 mg/ Sodium (Chloride) 100 mls @ 100 mls/hr IV Q48H [facility]; Protocol Last Admin: 10/26/21 18:41 Dose: 100 mls/hr Documented by: Insulin Human Lispro (Insulin Lispro 100 Unit/1 Ml) 0 unit SUBCUT TIDWM [facility]; Protocol Last Admin: 10/27/21 07:31 Dose: Not Given Documented by: Lactulose (Lactulose Oral Liq 20 Gm/30 Ml Udc) 30 gm PO Q12H PRN PRN Reason: CONSTIPATION Last Admin: 10/25/21 13:04 Dose: 30 gm Documented by: Lanolin (Lanolin Oint 7 Gm) 1 applic TOPICAL PRN PRN PRN Reason: DRYNESS Last Admin: 10/24/21 05:40 Dose: 1 tube Documented by: Levothyroxine Sodium (Levothyroxine 50 Mcg Tablet) 50 mcg PO DAILY [facility] Last Admin: 10/26/21 08:31 Dose: 50 mcg Documented by: Ondansetron HCl (Ondansetron 2 Mg/Ml Sdv 2 Ml) 4 mg IVP Q8H PRN PRN Reason: vomiting, or N/V if npo Pantoprazole Sodium (Pantoprazole Dr 40 Mg Tablet) 40 mg PO BID [facility] Last Admin: 10/26/21 18:40 Dose: 40 mg Documented by: Polyethylene Glycol (Polyethylene Glycol 3350 Pkt 17 Gm) 17 gm PO DAILY [facility] Last Admin: 10/26/21 08:32 Dose: Not Given Documented by: Senna (Sennosides 8.6 Mg Tablet) 8.6 mg PO BEDTIME [facility] Last Admin: 10/26/21 21:44 Dose: 8.6 mg Documented by: Sevelamer Carbonate (Sevelamer 800 Mg Tablet) 1,600 mg PO TIDWM [facility] Last Admin: 10/26/21 18:40 Dose: 1,600 mg Documented by: Tramadol HCl (Tramadol 50 Mg Tablet) 50 mg PO Q6H [facility] Last Admin: 10/27/21 04:06 Dose: 50 mg Documented by: Vitamin D (Cholecalciferol (Vitamin D3) 1,000 Unit Tablet) 1,000 unit PO DAILY [facility] Last Admin: 10/26/21 08:31 Dose: 1,000 unit Documented by: Vitals/I&O/Wt Last Vital Signs Temp 97.8 F 10/27/21 04:00 Pulse 60 10/27/21 07:48 Resp 16 10/27/21 07:48 BP 134/52 10/27/21 07:48 Pulse Ox 95 10/27/21 07:48 10/26/21 10/27/21 10/27/21 22:59 06:59 14:59 Intake Total 120 / 970 320 / 1290 Balance 120 / 970 320 / 1290 Weight last 48 hrs Weight 96.6 kg Physical Exam Narrative: vs noted - afebrile obese NARD, comfortable in bed heent- nc/at, eomi, anicteric neck supple lungs - diminished , wheezes heart reg abd soft, nt, nd, + bs ext 1+ leg edema RUE AVF w/ thrill and bruit neuro- a,a, o x 3 Data : 10/26/21 05:18 10/26/21 05:18 Micro: Microbiology 10/25/21 Unknown Blood Culture - Preliminary Blood NEGATIVE TO DATE 10/25/21 Unknown Blood Culture - Preliminary Blood NEGATIVE TO DATE A&P Assessment and plan (1) ESRD (end stage renal disease) on dialysis: 85 yr old female w/ staph aureus bacteremia 1. methacillin sensitive staph aureus bacteremia- treat per medicine/ ID- renal dose abx -daptomycin - for 6 weeks -repeat blood cx so far NGTD -normal wbc scan -for now would attempt to treat w/ iv abx -pt had intervention to AVG last week- i am concerned that it may be the source [phone] -follows w/ Dr Ricky Garibay of renal CRP 207 2. ESRD- s/p HD yesterday -repeat HD now-remove 2.5 l, 2 k bath -phos binders 3. anemia- check iron studies- give suha 4. bp okay 5. dm care 6. hypothyroidism - normal tsh seen and examined w/ RN -telehealth visit - time spent 30 min Status: Chronic Plan as above Attestations Medical Necessity Statement*: bacteremia-per medicine Time Spent in Patient Care: 16 - 35 minutes (>than 50% of time spent in counselling and/or direct pt care on unit). Coding Level of Care Code Acute Griddle Cook for Chg Fwd Diagnoses ESRD (end stage renal disease) on dialysis N18.6; Z99.2
[2021-10-27 09:12] LABS: Basophils % 0.3 %; Eosinophils # 0.1 10^3/uL (0.0-0.8); Eosinophils % 2.4 %; Hematocrit 27.4 % (37.0-47.0); Hemoglobin 8.7 g/dL (11.5-15.3); Lymphocytes # 0.7 10^3/uL (0.8-4.8); Lymphocytes % 11.7 %; Mean Corpuscular HGB Conc 31.8 g/dL (30.0-36.0); Mean Corpuscular Hemoglobin 30.9 pg (28.0-34.0); Mean Corpuscular Volume 97.2 fl (81-99); Mean Platelet Volume 10.1 fL (7.4-10.4); Monocytes # 0.4 10^3/uL (0.2-0.9); Monocytes % 7.6 %; Neutrophils # 4.32 10^3/uL (1.8-7.7); Neutrophils % 74.4 %; Nucleated Red Blood Cells % 0 %; Platelet Count 199 10^3/cmm (130-400); Red Blood Count 2.82 10^6/uL (4.1-5.3); Red Cell Distribution Width 14.9 % (12.1-15.1); White Blood Count 5.8 10^3/uL (4.0-10.0)
[2021-10-27 09:42] LABS: Anion Gap 17.9 (5-19); Blood Urea Nitrogen 34 mg/dL (8-23); Calcium 8.7 mg/dL (8.5-10.5); Carbon Dioxide 29 mmol/L (22-29); Chloride 95 mmol/L (98-107); Glucose 96 mg/dL (65-115); Iron 74 ug/dL (37-145); Magnesium 2.2 mg/dL (1.7-2.3); Osmolality Calculated 293 mOsm/kg (285-295); Percent Saturation 74.7 % (20-50); Phosphorus 2.5 mg/dL (2.5-4.5); Potassium 3.9 mmol/L (3.5-5.1); Sodium 138 mmol/L (136-145); Total Iron Binding Capacity 99 mcg/dl; Unsaturated Iron Binding 25 ug/dL (112-347)
[2021-10-27 09:59] LABS: Ferritin 2298 ng/mL (15-150)
[2021-10-27] MEDS: lanolin oint 7 gm 1 APPLIC TOPICAL (10:22)
[2021-10-27] MEDS: epoetin alfa 10,000 unit/mL INJ 10000 UNIT SUBCUT (12:00)
--- NOTE | 2021-10-27 12:20 | P.DS_ITS ---
Discharge Providers Date of Admission: 10/23/21 20:08 Date of Discharge: October 27, 2021 Attending Provider at Admission: Kristofer Dillon MD Attending Provider at Discharge: Roman Yuan MD Primary Care Provider: Char Parikh MD Diagnoses at Discharge Discharge Diagnosis (1) ESRD (end stage renal disease) on dialysis: Status: Chronic Reason for Visit Reason for Visit: NOT FEELING WELL/ R HIP AND KNEE PAIN Hospital Course Hospital Course 85 year old female with a past medical history of end-stage renal disease on dialysis, dialysis a Monday, type 2 diabetes mellitus von-[id number]-[id number], hypertension, anxiety, chronic pain, who presents to [facility] due to feeling ill, fevers, chills, nausea, fatigue, malaise. In this hospital stay she was admitted for management of sepsis secondary to MSSA bacteremia, likely cause of staph aureus bacteremia was recent manipulation of AV graft site, Patient reports recent manipulation of the graft on October 19, followed by symptoms of fever chills by October 21, 2021. Patient was initially kept on Zyvox and Zosyn, which was later switched to daptomycin renally dosed, she is being discharged on cefazolin 2 g IV on dialysis day for [address] Garibay has agreed for IV antibiotic administration. Blood culture during the hospital stay grew MSSA, subsequent repeat blood culture has been negative. 2D echo done during the hospital stay: Technically limited quality echocardiogram because of poor ?ultrasonic windows ?LV systolic function is normal with EF of 55-60% , Grade 1 diastolic dysfunction , Trace mitral regurgitation, Trace tricusid regurgitation ?Aortic valve is thickened. Tagged White blood cell scan : is normal. CT chest abd pel wo con: No acute abnormality identified in the chest.Multiple thoracic compression fractures.No acute abnormality identified in the abdomen or pelvis.CT head wo con: No acute intracranial abnormality.CV venous duplex UE RT: No evidence of right upper extremity DVT. Patient was continued on routine hemodialysis during the hospital stay. She responded well to above medical management and is being discharged in stable condition to skilled nursing. We will continue to follow with primary care physician, as well as nephrology as an outpatient. Physical Exam Const: COMMON NORMALS: patient oriented x3 HENMT: COMMON NORMALS: normocephalic, atraumatic, hearing grossly normal bilaterally and external ears normal HEAD & SCALP: normocephalic and atraumatic EXTERNAL EAR: Yes external ears normal Eye: COMMON NORMALS: no scleral icterus GENERAL EYE: appearance normal, both eyes and all related structures Chest: COMMONS NORMALS: normal inspection of the chest and normal palpation of entire chest wall CHEST: Yes Symmetrical chest wall rise Resp: COMMON NORMALS: normal respiratory effort, No retractions, No use of accessory muscles and clear to auscultation bilaterally EFFORT & INSPECTION: Yes symmetric chest movement AUSCULTATION: clear to auscultation bilaterally Cardio: COMMON NORMALS: regular rate, regular rhythm, S1 normal heart sound present, S2 normal heart sound present, No gallops present (Cardio), No murmurs present (Cardio), No rub (Cardio) and Peripheral pulses 2+ throughout RATE: regular rate RHYTHM: regular rhythm HEART SOUNDS: S1 normal heart sound present and S2 normal heart sound present PERIPHERAL PULSES: Peripheral pulses 2+ throughout GI: COMMON NORMALS: Normal to inspection, nondistended, normoactive bowel sounds present, Soft to palpation, non-tender, No hepatosplenomegaly present and no masses AUSCULTATION: Yes normoactive bowel sounds PALPATION: Yes Soft to palpation and Yes No hepatosplenomegaly present RECTAL EXAM: deferred Extremity: COMMON NORMALS: no clubbing, cyanosis or edema and no pedal edema Neuro: COMMON NORMALS: patient oriented x3 Discharge Data Studies Completed and Pending Completed Studies During Hospitalization Category Date Time Status CT chest abd pel wo con Urgent Cat Scan 10/22/21 22:[address] head wo con* [id number] Urgent Cat Scan 10/22/21 16:25 Completed XR chest 1V portable [id number] Urgent Exams 10/22/21 16:25 Completed XR hip RT 2-3V wo/w pel* [id number] Urgent Exams 10/22/21 19:29 Completed XR knee RT 3V* [id number] Urgent Exams 10/22/21 19:29 Completed NM CERETE WBC scan* [id number] Routine Nuc Med 10/26/21 09:10 [place] [id number] Routine Ultrasound 10/23/21 02:28 Completed CV. echo complete* [id number] Routine Ultrasound 10/23/21 02:28 Completed Pending at discharge Category Date Time Status BMP [Basic Metabolic Panel] AM LABS Lab 10/28/21 04:00 Ordered BMP [Basic Metabolic Panel] AM LABS Lab 10/28/21 04:00 Ordered BMP [Basic Metabolic Panel] AM LABS Lab 10/29/21 04:00 Ordered BMP [Basic Metabolic Panel] AM LABS Lab 10/29/21 04:00 Ordered BMP [Basic Metabolic Panel] AM LABS Lab 10/30/21 04:00 Ordered Bacterial Antigen Stat Lab 10/23/21 00:27 Uncollected Blood Culture Stat Lab 10/24/21 10:35 Results Blood Culture Stat Lab 10/25/21 Results CBC Auto Diff [Complete Blood Count w/Auto] AM LABS Lab 10/28/21 04:00 Ordered CBC Auto Diff [Complete Blood Count w/Auto] AM LABS Lab 10/28/21 04:00 Ordered CBC Auto Diff [Complete Blood Count w/Auto] AM LABS Lab 10/29/21 04:00 Ordered Complete Blood Count w/Auto AM LABS Lab 10/28/21 04:00 Ordered Complete Blood Count w/Auto AM LABS Lab 10/29/21 04:00 Ordered Complete Blood Count w/Auto AM LABS Lab 10/30/21 04:00 Ordered Comprehensive Metabolic Panel AM LABS Lab 10/28/21 04:00 Ordered Comprehensive Metabolic Panel AM LABS Lab 10/29/21 04:00 Ordered Comprehensive Metabolic Panel AM LABS Lab 10/30/21 04:00 Ordered Legionella Antigen STAT Stat Lab 10/23/21 00:27 Uncollected Magnesium AM LABS Lab 10/28/21 04:00 Ordered Magnesium AM LABS Lab 10/29/21 04:00 Ordered Magnesium AM LABS Lab 10/30/21 04:00 Ordered Phosphorus AM LABS Lab 10/28/21 04:00 Ordered Phosphorus AM LABS Lab 10/29/21 04:00 Ordered Phosphorus AM LABS Lab 10/30/21 04:00 Ordered SARS Covid-2 Antigen Routine Lab 10/27/21 11:55 Received Sputum Culture and Gram Stain Stat Lab 10/23/21 00:27 Uncollected Urinalysis Stat Lab 10/22/21 16:57 Uncollected Urinalysis Stat Lab 10/23/21 00:27 Uncollected Radiology Impressions Chest X-Ray 10/22/21 16:25 IMPRESSION: No acute chest abnormality. Head CT 10/22/21 16:25 IMPRESSION: 1. No acute intracranial abnormality. 2. Stable calcified probable meningioma in the right posterior fossa. Hip/Pelvis X-Ray 10/22/21 19:29 IMPRESSION: 1. No acute finding. Knee X-Ray 10/22/21 19:29 IMPRESSION: 1. No acute finding. Chest/Abdomen/Pelvis CT 10/22/21 22:30 IMPRESSION: 1. No acute abnormality identified in the chest. 2. Multiple thoracic compression fractures. These are age indeterminate but likely chronic. IMPRESSION: 1. No acute abnormality identified in the abdomen or pelvis. 2. Stool burden in the rectum and colon could indicate constipation in the right clinical setting. COMMENTS: Consistent with the [employer]'s Incidental Findings Committee white paper (J Am Frankie Radiol 2018): Any incidental renal lesion less than 1 cm or classified as too small to characterize, or any incidental cystic renal lesion characterized as simple-appearing, is likely benign. No follow-up imaging is recommended for these lesions per consensus recommendations based on imaging criteria. Venous Duplex 10/23/21 02:28 IMPRESSION: No evidence of right upper extremity DVT. WBC Scan Nuclear Medicine 10/26/21 09:10 IMPRESSION: Normal white blood cell study Laboratory Results WBC 5.8 10^3/uL (4.0-10.0) 10/27/21 09:00 RBC 2.82 10^6/uL (4.1-5.3) L 10/27/21 09:00 Hgb 8.7 g/dL (11.5-15.3) L 10/27/21 09:00 Hct 27.4 % (37.0-47.0) L 10/27/21 09:00 MCV 97.2 fl (81-99) 10/27/21 09:00 MCH 30.9 pg (28.0-34.0) 10/27/21 09:00 MCHC 31.8 g/dL (30.0-36.0) 10/27/21 09:00 RDW 14.9 % (12.1-15.1) 10/27/21 09:00 Plt Count 199 10^3/cmm (130-400) 10/27/21 09:00 MPV 10.1 fL (7.4-10.4) 10/27/21 09:00 Neut % (Auto) 74.4 % 10/27/21 09:00 Lymph % (Auto) 11.7 % 10/27/21 09:00 [place] % (Auto) 7.6 % 10/27/21 09:00 Eos % (Auto) 2.4 % 10/27/21 09:00 Baso % (Auto) 0.3 % 10/27/21 09:00 Neut # (Auto) 4.32 10^3/uL (1.8-7.7) 10/27/21 09:00 Lymph # (Auto) 0.7 10^3/uL (0.8-4.8) L 10/27/21 09:00 [place] # (Auto) 0.4 10^3/uL (0.2-0.9) 10/27/21 09:00 Eos # (Auto) 0.1 10^3/uL (0.0-0.8) 10/27/21 09:00 Baso # (Auto) 0.0 10^3/uL (0.0-0.1) 10/27/21 09:00 Nucleated RBC % (auto) 0 % 10/27/21 09:00 Nucleated RBCs # 0.0 /100WBC 10/27/21 09:00 ESR 12 mm/hr (0-15) 10/23/21 09:53 Specimen Type Arterial 10/22/21 17:02 Sample Site Radial, left 10/22/21 17:02 ABG pH 7.51 (7.35-7.45) H 10/22/21 17:02 ABG pCO2 36.6 mmHg (35-45) 10/22/21 17:02 ABG pO2 55.5 mmHg (80.0-100.0) L 10/22/21 17:02 ABG HCO3 29.4 mmol/L (22-26) H 10/22/21 17:02 ABG Base Excess 6.1 mmol/L (-2.0-2.0) H 10/22/21 17:02 Ez Test Pos 10/22/21 17:02 Hematocrit 33.0 % (37-47) L 10/22/21 17:02 O2 Delivery Device Room air 10/22/21 17:02 FiO2 21.0 % 10/22/21 17:02 [employer] ID Amh 10/22/21 17:02 Sodium 138 mmol/L (136-145) 10/27/21 09:00 Potassium 3.9 mmol/L (3.5-5.1) 10/27/21 09:00 Chloride 95 mmol/L (98-107) L 10/27/21 09:00 Carbon Dioxide 29 mmol/L (22-29) 10/27/21 09:00 Anion Gap 17.9 (5-19) 10/27/21 09:00 BUN 34 mg/dL (8-23) H 10/27/21 09:00 Creatinine 4.6 mg/dL (0.5-0.9) H 10/27/21 09:00 GFR Calculation Not Reportable 10/27/21 09:00 Glucose 96 mg/dL (65-115) 10/27/21 09:00 POC Glucose 111 mg/dL (70-110) H 10/27/21 06:07 Calculated Osmolality 293 mOsm/kg (285-295) 10/27/21 09:00 Lactic Acid Cancelled 10/22/21 17:09 Lactate 1.3 mmol/L (0.5-2.2) 10/24/21 05:09 Calcium 8.7 mg/dL (8.5-10.5) 10/27/21 09:00 Phosphorus 2.5 mg/dL (2.5-4.5) 10/27/21 09:00 Magnesium 2.2 mg/dL (1.7-2.3) 10/27/21 09:00 Iron 74 ug/dL (37-145) 10/27/21 09:00 TIBC 99 mcg/dl 10/27/21 09:00 % Saturation 74.7 % (20-50) H 10/27/21 09:00 Unsat Iron Binding 25 ug/dL (112-347) L 10/27/21 09:00 Ferritin 2298 ng/mL (15-150) H 10/27/21 09:00 Total Bilirubin 0.3 mg/dL (0.15-1.2) 10/26/21 05:18 AST 12 U/L (0-32) 10/26/21 05:18 ALT 14 U/L (0-33) 10/26/21 05:18 Alkaline Phosphatase 65 IU/L (35-105) 10/26/21 05:18 Ammonia 25 umol/L (11-51) 10/22/21 17:09 Creatine Kinase 170 U/L (26-192) 10/24/21 05:09 Troponin T Baseline 82 ng/L (0-10) H 10/22/21 20:49 Troponin T 120 Minute 78.82 ng/L (0-10) H 10/22/21 23:09 Delta Troponin T Not Reportable 10/22/21 23:09 Troponin T Hi Sens 6Hr 81.20 ng/L (0-10) H 10/23/21 02:47 Troponin T Hi Sens 6Hr Delta Not Reportable 10/23/21 02:47 C-Reactive Protein 207.4 mg/L (0.0-4.9) H 10/24/21 05:09 NT-Pro-B Natriuret Pep 85863 pg/mL (0-450) H 10/22/21 20:49 Total Protein 5.2 g/dL (6.6-8.7) L 10/26/21 05:18 Albumin 2.8 g/dL (3.5-5.2) L 10/26/21 05:18 Globulin 2.4 g/dL (1.3-4.6) 10/26/21 05:18 Procalcitonin 2.37 ng/mL (0-0.5) H 10/24/21 05:09 TSH 2.05 uIU/mL (0.27-4.20) 10/22/21 20:49 Nasal Influ A H1 2009 PCR Not detected (NOT DETECT) 10/23/21 06:06 Coronavirus 229E (PCR) Not detected (NOT DETECT) 10/23/21 00:15 Hep Bs Antigen Non-reactive (Nonreactive) 10/24/21 12:31 Hep Bs Antibody 49.2 (11.5-1000) 10/24/21 12:31 Hepatitis C Antibody Non-reactive (Nonreactive) 10/24/21 12:31 Influenza A (H1) PCR Not detected (NOT DETECT) 10/23/21 06:06 Influenza A (H3) PCR Not detected (NOT DETECT) 10/23/21 06:06 Influenza Type A Ag Cancelled 10/23/21 06:06 Influenza Type A (PCR) Not detected (NOT DETECT) 10/23/21 06:06 Influenza Type B Ag Cancelled 10/23/21 06:06 Influenza Type B (PCR) Not detected (NOT DETECT) 10/23/21 06:06 SARS-CoV-2 (PCR) Not detected (NOT DETECT) 10/23/21 00:15 SARS-CoV-2 Ag (Rapid) Negative (Negative) 10/22/21 21:22 Vitals Last Vital Signs Temp 97.8 F 10/27/21 04:00 Pulse 60 10/27/21 07:48 Resp 16 10/27/21 07:48 BP 134/52 10/27/21 07:48 Pulse Ox 95 10/27/21 07:48 Discharge Plan Discharge Patient Disposition: Home Condition: Stable Prescriptions: Continued metoprolol succinate 25 mg tablet extended release 24 hr 12.5 mg PO DAILY PRN (Reason: Blood Pressure) 0RF lorazepam [Ativan] 0.5 mg tablet 0.5 mg PO DAILY PRN (Reason: Anxiety) 0RF diclofenac sodium 1 % gel 2 g topical QID 0RF Rx Instructions: apply to single elbow, wrist or hand; for hand includes palm/fingers/back of hand cyclobenzaprine 10 mg Tablet 10 mg PO DAILY 0RF sennosides [senna] 8.6 mg Tablet 8.6 mg PO BEDTIME 0RF chlorpheniramine maleate [ChlorTabs] 4 mg Tablet 4 mg PO DAILY PRN (Reason: Allergy Symptoms) 0RF ondansetron HCl [Zofran] 4 mg Tablet 4 mg PO Q6H PRN (Reason: Nausea And Vomiting) 0RF aspirin 81 mg Tablet,Delayed Release (Dr/Ec) 81 mg PO DAILY 0RF tramadol 50 mg Tablet 50 mg PO Q6H 0RF levothyroxine 50 mcg Tablet 50 mcg PO DAILY 0RF Rx Instructions: P docusate sodium [Colace] 100 mg Capsule 100 mg PO DAILY 0RF Renal Caps 1 mg Capsule 1 cap PO DAILY 0RF polyethylene glycol 3350 [Miralax] 17 gram/dose Powder 17 g PO DAILY 0RF Culturelle 10 billion cell Capsule 1 cap PO DAILY 0RF cholecalciferol (vitamin D3) [Vitamin D3] 25 mcg (1,000 unit) Capsule 25 mcg PO DAILY 0RF sevelamer carbonate [Renvela] 800 mg Tablet 2,400 mg PO TID 0RF fentanyl 37.5 mcg/hour Patch 72 Hour 1 patch TRANSDERMAL Q72H 0RF pantoprazole [Protonix] 40 mg Tablet,Delayed Release (Dr/Ec) 40 mg PO DAILY 0RF docusate sodium [Colace] 100 mg Capsule 100 mg PO BEDTIME PRN (Reason: Constipation) 0RF Lokelma 5 gram Powder In Packet See Rx Instructions .ROUTE .COMPLEX 0RF Rx Instructions: 15 g orally ON NON-DIALYSIS DAYS (E, , MON, MON) acetaminophen 500 mg Tablet 500 mg PO QID 0RF losartan 100 mg Tablet 100 mg PO DAILY 0RF fluticasone propionate 50 mcg/actuation spray,suspension 50 mcg INTRANASAL BID 0RF bisacodyl 10 mg Suppository 10 mg [place] DAILY PRN (Reason: Constipation) 0RF Discharge Orders: Discharge Order (Routine); Ordered 10/27/21 Ordered By: Roman Yuan Referrals: [facility] [place][Note [place]] [Outside] Char Parikh MD [Primary Care Provider] - Discharge Activity: Resume usual activity Patient Instructions: Opioid Safety Discharge Attestations Time Spent in Discharge Care*: greater than 30 min Specific Discharge Activities: educating patient, educating and/or supporting family/caregiver, discussing with pcp/other providers, discussing with gearcase assembler/social workers/dc planners, documenting/other paperwork and evaluating patient/reviewing data Status at Discharge: Cognitive status at discharge: cognitively intact , Behavioral status at discharge: cooperative , Quality Metrics Clinical Quality Measures [ No reported AMI, CVA or VTE this stay] Coding Level of Care Code Acute Chg DC note Diagnoses ESRD (end stage renal disease) on dialysis N18.6; Z99.2
[2021-10-27 12:47] LABS: SARS Covid-2 Antigen Negative (Negative)
[2021-10-27 13:39] LABS: Bacillus cereus group Not Detected (NOT DETECT); Bacillus subtillis group Not Detected (NOT DETECT); Corynebacterium Not Detected (NOT DETECT); Cutibacterium acnes (P.acnes) Not Detected (NOT DETECT); Enterococcus Not Detected (NOT DETECT); Enterococcus faecalis Not Detected (NOT DETECT); Enterococcus faecium Not Detected (NOT DETECT); Lactobacillus species Not Detected (NOT DETECT); Listeria Not Detected (NOT DETECT); Listeria monocytogenes Not Detected (NOT DETECT); Micrococcus Not Detected (NOT DETECT); Pan Candida Not Detected (NOT DETECT); Pan Gram-Negative Not Detected (NOT DETECT); Staphylococcus epidermidis Not Detected (NOT DETECT); Staphylococcus lugdunensis Not Detected (NOT DETECT); Staphylococcus species Detected (NOT DETECT); Streptococcus agalactiae Not Detected (NOT DETECT); Streptococcus anginosus group Not Detected (NOT DETECT); Streptococcus pneumoniae Not Detected (NOT DETECT); Streptococcus pyogenes Not Detected (NOT DETECT); Streptococcus species Not Detected (NOT DETECT); mecA Not Detected (NOT DETECT); mecC Not Detected (NOT DETECT)
[2021-10-27] MEDS: pantoprazole DR 40 mg Tablet PO (13:55)
[2021-10-27] MEDS: cyclobenzaprine 10 mg Tablet PO (13:56)
[2021-10-27] MEDS: cholecalciferol (vitamin D3) 1,000 unit Tablet 1000 UNIT PO (13:56)
[2021-10-27] MEDS: aspirin 81 mg EC Tablet PO (13:56)
[2021-10-27] MEDS: ondansetron 2 mg/ML SDV 2 mL 4 MG IVP (13:57)
[2021-10-27] MEDS: levothyroxine 50 mcg Tablet PO (13:57)
[2021-10-27] MEDS: acetaminophen 500 mg Tablet PO (14:10)
[2021-10-27 15:00] VITALS: BP 134/52; PULSE 60; RESP 16; O2SAT 95
== END 2021-10-27 14:15 | disposition skilled nursing facility (03) | DRG 314 ==
LOC: ER 23:47 → MEDSURG 10-23 06:47
PROVIDERS: Internal Medicine Nephrology; Student in an Organized Health Care Education/Training Program; Admitting Provider Family Medicine; Emergency Provider Emergency Medicine; PCP Internal Medicine; Visit Provider Internal Medicine
DX: T82.7XXA Infection and inflammatory reaction due to other cardiac and vascular devices, implants and grafts, initial encounter (principal); N18.6 End stage renal disease; I12.0 Hypertensive chronic kidney disease with stage 5 chronic kidney disease or end stage renal disease; A49.01 Methicillin susceptible Staphylococcus aureus infection, unspecified site; Y73.1 Therapeutic (nonsurgical) and rehabilitative gastroenterology and urology devices associated with adverse incidents; E11.22 Type 2 diabetes mellitus with diabetic chronic kidney disease; Z99.2 Dependence on renal dialysis; E78.5 Hyperlipidemia, unspecified; D63.1 Anemia in chronic kidney disease; K21.9 Gastro-esophageal reflux disease without esophagitis; E03.9 Hypothyroidism, unspecified; E66.01 Morbid (severe) obesity due to excess calories; Z87.891 Personal history of nicotine dependence; M25.551 Pain in right hip; M25.561 Pain in right knee; F41.9 Anxiety disorder, unspecified; G89.29 Other chronic pain; Z79.891 Long term (current) use of opiate analgesic; Z79.82 Long term (current) use of aspirin; K59.00 Constipation, unspecified
CPT/HCPCS: 36415; 36416; 36600; 70450; 71045; 71250; 73502; 73562; 74176; 78802; 80048; 80053; 82140; 82550; 82728; 82803; 82962; 83540; 83550; 83605; 83735; 83880; 84100; 84145; 84443; 84484; 85025; 85651; 86140; 86706; 86803; 87040; 87077; 87150; 87186; 87205; 87340; 87426; 87631; 87635; 87641; 93005; 93306; 93971; 96365; 96372; 96375; 97110; 97116; 97162; 97165; 97530; 99285; A9569; G0378; J0878; J1644; J1815; J2020; J2405; J2543; J3370; J7050; Q3014; Q4081

== ENCOUNTER → 2022-05-03 10:20 | Outpatient (BNVA) | payer MEDICARE, MEDICAID, SELFPAY | PROVIDERS: PCP Internal Medicine; Visit Provider Podiatrist Foot & Ankle Surgery | DX: E11.8 Type 2 diabetes mellitus with unspecified complications (principal); B35.1 Tinea unguium; I73.9 Peripheral vascular disease, unspecified; L97.522 Non-pressure chronic ulcer of other part of left foot with fat layer exposed | CPT/HCPCS: 11721 ==

== ENCOUNTER 2022-06-12 14:10 | Inpatient (IN) | payer MEDICARE, MEDICAID, SELFPAY ==
[2022-06-12] VITALS (13 sets, daily range): BP systolic 125–181; BP diastolic 53–93; PULSE 83–107; RESP 2–25; TEMP 36.9–38.1; O2SAT 87–98; BMI 28.3
--- NOTE | 2022-06-12 14:16 | XRR_ITS ---
PROCEDURE INFORMATION: Exam: XR Chest Exam date and time: 06/12/2022 2:29 PM Age: 86 years old Clinical indication: Shortness of breath; Additional info: SOB TECHNIQUE: Imaging protocol: Radiologic exam of the chest. Views: 1 view. COMPARISON: CT chest abd pel wo con 10/22/2021 10:55 PM FINDINGS: Lungs: Unremarkable. No consolidation. Pleural spaces: Small volume pleural effusions, left greater than right. No pneumothorax. Heart/Mediastinum: Mild cardiomegaly. Vasculature: Vascular stents project over both axilla and upper chest wall. Bones/joints: Unremarkable. XR/XR chest 1V portable [id number] IMPRESSION: Small volume pleural effusions, left greater than right.
--- NOTE | 2022-06-12 14:24 | W.ED.SOB ---
HPI - SOB/Dyspnea General: Chief Complaint: Shortness of Breath/Dyspnea Stated Complaint: SOB Time Seen by Provider: 06/12/22 14:12 Source: patient and EMS Mode of arrival: EMS Limitations: no limitations History of Present Illness: HPI Narrative: 86-year-old female has a history of end-stage renal disease she is on dialysis Monday. She states she did receive dialysis on Monday she has been having increasing shortness of breath today per longterm they have had to place her on 2 to 3 L oxygen she typically does not wear oxygen she denies any fever denies any cough she had some slight weakness. Associated symptoms: Deny abdominal pain, chest pain, fever(s), nausea or vomiting Review of Systems Const: Denies: fever(s), chills, body aches or change in appetite Eyes: Denies: blurry vision or eye discomfort ENMT: Denies: throat pain or dental pain Card: Denies: chest pain Resp: Reports: dyspnea GI: Denies: abdominal pain, nausea, vomiting or diarrhea : Denies: dysuria Musc: Denies: neck pain or back pain Skin/Breast: Denies: rash Neuro: Denies: headache(s) Psych: Denies: depression Jefferson/Lymph: Denies: easy bruising All/Imm: Denies: urticaria PFSH ED PFSH: Medical History Anemia of chronic disease Anxiety Constipation 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 Fever GERD (gastroesophageal reflux disease) HTN (hypertension) Hypothyroidism Morbid obesity SIRS (systemic inflammatory response syndrome) Staphylococcus aureus bacteremia with sepsis Surgical History A-V fistula H/O hemorrhoidectomy H/O: hysterectomy Family History Father Alcoholism /alcohol abuse Mother Hypertension Denies family history of Chronic kidney disease (CKD) Social History Smoking and tobacco status: former smoker Quit status (tobacco): has quit using tobacco Former quit date comment: 40 yrs ago Alcohol intake: current Alcohol intake frequency: holidays/special occasions only Housing: Long Term Marital status: Current occupational status: retired Course Vital Signs: Vital signs: Vital Signs Temperature 98.4 F 06/12/22 14:26 Pulse Rate 107 H 06/12/22 14:30 Respiratory Rate 25 H 06/12/22 14:30 Blood Pressure 181/88 06/12/22 14:30 Pulse Oximetry 98 06/12/22 14:12 Oxygen Delivery Me thod 06/12/22 14:12 Oxygen Flow Rate 3 06/12/22 14:12 MDM - SOB/Dyspnea Medical Decision Making Patient presents here with shortness of breath she is on dialysis with end-stage renal disease does have some swelling her lower legs likely fluid overloaded she did have a leukocytosis no sign of infection at this time she does have some chronic wounds to her buttocks will start antibiotics and follow blood cultures I spoke to the hospitalist will admit at this time she has a new requirement of oxygen here. Lab Data : 06/12/22 14:13 06/12/22 14:13 Labs/Radiology: Radiology Impressions Chest X-Ray 06/12/22 14:16 IMPRESSION: Small volume pleural effusions, left greater than right. Laboratory Results WBC 27.0 10^3/uL (4.0-10.0) H 06/12/22 14:13 RBC 4.15 10^6/uL (4.1-5.3) 06/12/22 14:13 Hgb 12.2 g/dL (11.5-15.3) 06/12/22 14:13 Hct 39.2 % (37.0-47.0) 06/12/22 14:13 MCV 94.5 fl (81-99) 06/12/22 14:13 MCH 29.4 pg (28.0-34.0) 06/12/22 14:13 MCHC 31.1 g/dL (30.0-36.0) 06/12/22 14:13 RDW 18.5 % (12.1-15.1) H 06/12/22 14:13 Plt Count 316 10^3/cmm (130-400) 06/12/22 14:13 MPV 10.4 fL (7.4-10.4) 06/12/22 14:13 Neut % (Auto) 90.4 % 06/12/22 14:13 Lymph % (Auto) 3.2 % 06/12/22 14:13 Robeson % (Auto) 5.1 % 06/12/22 14:13 Eos % (Auto) 0.1 % 06/12/22 14:13 Baso % (Auto) 0.2 % 06/12/22 14:13 Neut # (Auto) 24.39 10^3/uL (1.8-7.7) H 06/12/22 14:13 Lymph # (Auto) 0.9 10^3/uL (0.8-4.8) 06/12/22 14:13 Robeson # (Auto) 1.4 10^3/uL (0.2-0.9) H 06/12/22 14:13 Eos # (Auto) 0.0 10^3/uL (0.0-0.8) 06/12/22 14:13 Baso # (Auto) 0.1 10^3/uL (0.0-0.1) 06/12/22 14:13 Nucleated RBC % (auto) 0 % 06/12/22 14:13 Nucleated RBCs # 0.0 /100WBC 06/12/22 14:13 PT 14.30 SECONDS (12.1-14.9) 06/12/22 14:13 INR 1.08 (0.8-1.2) 06/12/22 14:13 Sodium 137 mmol/L (136-145) 06/12/22 14:13 Potassium 5.2 mmol/L (3.5-5.1) H 06/12/22 14:13 Chloride 91 mmol/L (98-107) L 06/12/22 14:13 Carbon Dioxide 29 mmol/L (22-29) 06/12/22 14:13 Anion Gap 22.2 (5-19) H 06/12/22 14:13 BUN 39 mg/dL (8-23) H 06/12/22 14:13 Creatinine 4.8 mg/dL (0.5-0.9) H 06/12/22 14:13 GFR Calculation Not Reportable 06/12/22 14:13 Glucose 138 mg/dL (65-115) H 06/12/22 14:13 Calculated Osmolality 296 mOsm/kg (285-295) H 06/12/22 14:13 Calcium 10.9 mg/dL (8.5-10.5) H 06/12/22 14:13 Total Bilirubin 1.3 mg/dL (0.15-1.2) H 06/12/22 14:13 AST 50 U/L (0-32) H 06/12/22 14:13 ALT 26 U/L (0-33) 06/12/22 14:13 Alkaline Phosphatase 97 U/L (35-105) 06/12/22 14:13 Troponin T Baseline 85 ng/L (0-10) H 06/12/22 14:13 NT-Pro-B Natriuret Pep > 67141 pg/mL (0-450) H 06/12/22 14:13 Total Protein 7.7 g/dL (6.6-8.7) 06/12/22 14:13 Albumin 4.1 g/dL (3.5-5.2) 06/12/22 14:13 Globulin 3.6 g/dL (1.3-4.6) 06/12/22 14:13 Discharge Plan Discharge Patient Disposition: Admitted As Inpatient Clinical Impression: ESRD on dialysis, Acute respiratory failure with hypoxemia, Leukocytosis Condition: Stable Coding Level of Care Code ED Traveling Operator for Kasi Montague
[2022-06-12 14:32] LABS: Basophils # 0.1 10^3/uL (0.0-0.1); Basophils % 0.2 %; Eosinophils % 0.1 %; Hematocrit 39.2 % (37.0-47.0); Hemoglobin 12.2 g/dL (11.5-15.3); Lymphocytes # 0.9 10^3/uL (0.8-4.8); Lymphocytes % 3.2 %; Mean Corpuscular HGB Conc 31.1 g/dL (30.0-36.0); Mean Corpuscular Hemoglobin 29.4 pg (28.0-34.0); Mean Corpuscular Volume 94.5 fl (81-99); Mean Platelet Volume 10.4 fL (7.4-10.4); Monocytes # 1.4 10^3/uL (0.2-0.9); Monocytes % 5.1 %; Neutrophils # 24.39 10^3/uL (1.8-7.7); Neutrophils % 90.4 %; Nucleated Red Blood Cells % 0 %; Platelet Count 316 10^3/cmm (130-400); Red Blood Count 4.15 10^6/uL (4.1-5.3); Red Cell Distribution Width 18.5 % (12.1-15.1)
[2022-06-12 14:38] LABS: INR 1.08 (0.8-1.2)
--- NOTE | 2022-06-12 14:39 | ECG_ITS ---
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 Measurements Intervals [place] Rate: 109 P: 48 IN: 140 QRS: -63 QRSD: 155 T: 20 QT: 366 QTc: 493 Interpretive Statements SINUS TACHYCARDIA RIGHT BUNDLE BRANCH BLOCK [120+ ms QRS DURATION, UPRIGHT V1, 40+ ms S IN I/aVL/V4/V5/V6] LEFT ANTERIOR FASCICULAR BLOCK [QRS AXIS <= -45, QR IN I, RS IN II] Compared to ECG 10/22/2021 18:29:17 Sinus rhythm no longer present Electronically Signed On 06-12-2022 21:59:53 CDT by Sujit Baird M.D. [id number]
[2022-06-12 14:51] LABS: Troponin(5th) Baseline 85 ng/L (0-10)
[2022-06-12 15:00] LABS: Alanine Aminotransferase 26 U/L (0-33); Albumin Level 4.1 g/dL (3.5-5.2); Alkaline Phosphatase 97 U/L (35-105); Anion Gap 22.2 (5-19); Aspartate Amino Transferase 50 U/L (0-32); Blood Urea Nitrogen 39 mg/dL (8-23); Calcium 10.9 mg/dL (8.5-10.5); Carbon Dioxide 29 mmol/L (22-29); Chloride 91 mmol/L (98-107); Globulin 3.6 g/dL (1.3-4.6); Glucose 138 mg/dL (65-115); Osmolality Calculated 296 mOsm/kg (285-295); Potassium 5.2 mmol/L (3.5-5.1); Sodium 137 mmol/L (136-145); Total Bilirubin 1.3 mg/dL (0.15-1.2); Total Protein 7.7 g/dL (6.6-8.7)
[2022-06-12] MEDS: labetalol 5 mg/mL SDV 20mL 10 MG IVP (15:10)
[2022-06-12 15:26] LABS: NT Pro B Type Natriuretic Pept > 70000 pg/mL (0-450)
[2022-06-12] MEDS: azithromycin 500 MG in sodium chloride 0.9% 250 ML 250 MG IV (16:03)
--- NOTE | 2022-06-12 16:08 | ECG_ITS ---
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 Measurements Intervals [place] Rate: 91 P: 53 MD: 143 QRS: -63 QRSD: 152 T: 48 QT: 408 QTc: 502 Interpretive Statements SINUS RHYTHM RIGHT BUNDLE BRANCH BLOCK [120+ ms QRS DURATION, UPRIGHT V1, 40+ ms S IN I/aVL/V4/V5/V6] LEFT ANTERIOR FASCICULAR BLOCK [QRS AXIS <= -45, QR IN I, RS IN II] POSSIBLE ANTERIOR MYOCARDIAL INFARCTION , OF INDETERMINATE AGE [30 ms Q WAVE IN V3/V4, OR R < 0.2 mV IN V4] Compared to ECG 06/12/2022 14:39:08 Myocardial infarct finding now present Sinus tachycardia no longer present Electronically Signed On 06-12-2022 22:04:49 CDT by Sujit Baird M.D. [id number]
[2022-06-12 16:10] LABS: SARS Covid-2 Antigen Negative (Negative)
[2022-06-12] MEDS: cefTRIAXone 1,000 MG in sodium chloride 0.9% (plus) 50 ML 100 MG IV (16:12)
--- NOTE | 2022-06-12 16:39 | CTR_ITS ---
PROCEDURE INFORMATION: Exam: CTA Chest With Contrast Exam date and time: 06/12/2022 6:14 PM Age: 86 years old Clinical indication: Other: Hypoxia, tachycardia TECHNIQUE: Imaging protocol: Computed tomographic angiography of the chest with contrast. 3D rendering (Not supervised by radiologist): MIP and/or 3D reconstructed images were created by the technologist. Radiation optimization: All CT scans at this facility use at least one of these dose optimization techniques: automated exposure control; mA and/or kV adjustment per patient size (includes targeted exams where dose is matched to clinical indication); or iterative reconstruction. Contrast material: OMNIPAQUE 350; Contrast volume: 95 ml; Contrast route: INTRAVENOUS (IV); COMPARISON: CT chest abd pel wo con 10/22/2021 10:55 PM RADIATION DOSE METRICS: Total DLP (mGy-cm): 503.3 FINDINGS: Pulmonary arteries: Normal. No pulmonary emboli. Aorta: Unremarkable. No aortic aneurysm. No aortic dissection. Lungs: See Pleural spaces finding. Pleural spaces: Moderate bilateral pleural effusions with adjacent compressive atelectasis and or pneumonia. Heart: Multivessel atherosclerotic disease which involves the coronary arteries. Lymph nodes: There are calcified mediastinal and perihilar lymph nodes consistent with prior granulomatous exposure. Bones/joints: Generalized osteopenia. There are chronic compression deformities of several thoracic vertebra. Soft tissues: Soft tissue anasarca. CT/CT angio chest PE protcl [id number] IMPRESSION: 1. Cardiomegaly. 2. There are moderate bilateral pleural effusions with adjacent compressive atelectasis and or pneumonia. In combination with cardiomegaly, findings are consistent with congestive heart failure. 3. Multivessel atherosclerotic disease which involves the coronary arteries. 4. Generalized osteopenia.
--- NOTE | 2022-06-12 16:42 | PM.HP ---
Providers/Chief Complaint Primary Care Provider: Char Parikh MD Chief Complaint: SOB History of Present Illness Pleasant 86-year-old lady with history of chronic lower extremity wounds, ESRD, on hemodialysis MWF, via right arm fistula, last dialysis on Monday which she states was cut short but cannot tell me why, was brought in for evaluation feeling unwell since this morning. States she woke up feeling unwell, nothing specific, just did not feel good. Then noticed to have low oxygen saturation, required 3 L nasal cannula oxygen at snf, not normally on oxygen supplementation. Denies chest pain or pressure. Denies any cough. Having mild nausea. No vomiting or diarrhea. She is somewhat somnolent in ER, but denies headache. States apart from her in baseline state of health, has noticed some swelling in the right thigh recently. Denies noticing any overt rash herself. States has had a biopsy of a suspicious lesion on her left hand, dressings have been changed in snf, and she is supposed to be going for removal of the stitches. Denies any trouble with the wound. Back in October she had MSSA bacteremia which was thought to be after fistula manipulation and she had underwent 6 weeks of antibiotic therapy. With regards to CODE STATUS, she states would not want CPR in case of cardiopulmonary arrest. Would not want intubation, mechanical ventilation in case of respiratory arrest. I am 86 years old . Review of Systems Const: Reports: malaise Eyes: Denies: change in vision, eye discomfort or eye redness ENMT: Denies: throat pain, oral sores or ear or mastoid pain Card: Reports: edema (RLE>LLE); Denies: chest pain, pre-syncope or dyspnea on exertion Resp: Denies: productive cough, non-productive cough, change in phlegm color or hemoptysis GI: Reports: nausea; Denies: abdominal pain, vomiting, diarrhea, constipation, hematochezia or melena : Denies: flank pain, urinary frequency or hematuria Musc: Denies: back pain, joint swelling or joint redness Skin/Breast: Reports: new lesions (L hand biopsy wound); Denies: rash Neuro: Denies: headache(s), numbness in extremities, weakness in extremities, dizziness or seizure-like activity Endo: Denies: polyuria or polydipsia Jefferson/Lymph: Denies: easy bleeding or tender lymph nodes All/Imm: Denies: urticaria or tongue swelling Medications/Allergies Home Medications Medication Instructions Recorded Confirmed Last Taken Type Lactobacillus rhamnosus GG 10 1 cap PO DAILY 05/19/20 06/12/22 06/12/22 History billion cell capsule (Culturelle) aspirin 81 mg tablet,delayed 81 mg PO DAILY 05/19/20 06/12/22 06/12/22 History release cholecalciferol (vitamin D3) 25 25 mcg PO DAILY 05/19/20 06/12/22 06/12/22 History mcg (1,000 unit) capsule (Vitamin D3) docusate sodium 100 mg capsule 100 mg PO DAILY 05/19/20 06/12/22 06/12/22 History (Colace) levothyroxine 50 mcg tablet 50 mcg PO DAILY 05/19/20 06/12/22 06/12/22 History polyethylene glycol 3350 17 17 g PO DAILY 05/19/20 06/12/22 06/11/22 History gram/dose oral powder (Miralax) vitamin B complex and vitamin C 1 cap PO DAILY 05/19/20 06/12/22 06/12/22 History no.20-folic acid 1 mg capsule (Renal Caps) pantoprazole 40 mg tablet,delayed 40 mg PO DAILY 06/12/20 06/12/22 06/12/22 History release (Protonix) lorazepam 0.5 mg tablet (Ativan) 0.5 mg PO BEDTIME 10/05/21 06/12/22 06/11/22 History bisacodyl 10 mg rectal suppository 10 mg MA DAILY PRN Constipation 10/23/21 06/12/22 10/21/21 08:19 History fluticasone propionate 50 50 mcg intranasal BID 10/23/21 06/12/22 06/12/22 History mcg/actuation nasal spray,suspension losartan 100 mg tablet 100 mg PO BEDTIME 10/23/21 06/12/22 06/11/22 History diphenhydramine HCl 25 mg capsule 25 mg PO TID PRN Allergy Symptoms 05/03/22 06/12/22 Unknown History (Benadryl) metoclopramide HCl 5 mg tablet 5 mg PO TID 05/03/22 06/12/22 06/12/22 History (Reglan) calcium carbonate 470 mg calcium 1,410 mg PO TID 06/12/22 06/12/22 06/12/22 History (1,177 mg) chewable tablet (Tums Ultra) cetirizine 10 mg tablet 10 mg PO DAILY 06/12/22 06/12/22 06/12/22 History diphenhydramine HCl 25 mg tablet 25 mg PO Q6H PRN Allergy Symptoms 06/12/22 06/12/22 Unknown History prednisone 50 mg tablet See Rx Instructions .Route .COMPLEX 06/12/22 06/12/22 Unknown History Allergies Allergy/AdvReac Type Severity Reaction Status Date / Time vancomycin Allergy Severe ALGY-Swell Verified 05/31/22 08:06 Lip/Tongue/Throat Iodinated Contrast Media Allergy Mild ALGY-Rash Unverified 06/12/22 17:26 PFSH Acute PFSH: Medical History Anemia of chronic disease Anxiety Constipation 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 Fever GERD (gastroesophageal reflux disease) HTN (hypertension) Hypothyroidism Morbid obesity SIRS (systemic inflammatory response syndrome) Staphylococcus aureus bacteremia with sepsis Surgical History A-V fistula H/O hemorrhoidectomy H/O: hysterectomy Family History Father Alcoholism /alcohol abuse Mother Hypertension Denies family history of Chronic kidney disease (CKD) Social History Smoking and tobacco status: former smoker Quit status (tobacco): has quit using tobacco Former quit date comment: 40 yrs ago Alcohol intake: current Alcohol intake frequency: holidays/special occasions only Housing: [facility] Marital status: Current occupational status: retired Vitals/I&O/Wt Last Vital Signs Temp 98.4 F 06/12/22 14:26 Pulse 90 06/12/22 16:00 Resp 21 H 06/12/22 16:00 BP 133/56 06/12/22 16:00 Pulse Ox 95 06/12/22 16:00 O2 Del Method 06/12/22 14:12 O2 Flow Rate 3 06/12/22 14:12 Weight last 48 hrs Weight 72.575 kg Physical Exam Const: COMMON NORMALS: patient oriented x3 GENERAL APPEARANCE: cooperative NUTRITIONAL APPEARANCE: overweight ORIENTATION/CONSCIOUSNESS: Yes lethargic OTHER: Wakes up easily to voice, touch. HENMT: COMMON NORMALS: oropharynx normal Neck/C-Spine: COMMON NORMALS: no JVD Resp: COMMON NORMALS: normal respiratory effort and clear to auscultation bilaterally AUSCULTATION: clear to auscultation bilaterally Cardio: COMMON NORMALS: no JVD, regular rhythm, S1 normal heart sound present, S2 normal heart sound present and No murmurs present (Cardio) RHYTHM: regular rhythm HEART SOUNDS: S1 normal heart sound present and S2 normal heart sound present GI: COMMON NORMALS: Normal to inspection, nondistended, normoactive bowel sounds present, Soft to palpation and non-tender PALPATION: Yes Soft to palpation Extremity: COMMON NORMALS: no joint enlargement GENERAL: Yes edema (2+ R>L) OTHER: R arm fistula Neuro: COMMON NORMALS: patient oriented x3 and moves all extremities SENSORIUM/ORIENTATION: Yes alert Skin: COMMON NORMALS: no rashes or lesions noted OTHER: Thin fragile skin, multiple ecchymoses. Dry and scaly on upper and lower extremities. Chronic venous stasis dermatitis BL LE. Small taught blisters on R lower thigh ~0.5-1cm in diameter, no surrounding rash or erythema, she states has been a chronic recurrent issue LLE faint diffuse erythema without epidermal swelling, some dry scaly skin. Warm to touch. Warmer than right. Left lower extremity ulcerations above lateral toes, as well as dorsal foot, wet-to-dry dressing in place. No significant surrounding erythema. Minimal slough at the bases. Additional wound mid sánchez, maceration, skin tear, as well as lateral lower leg below the knee. Shallow ulceration with some maceration of to medial fourth toe on the right, above the third toe dorsal foot. Some maceration/moisture swelling of epidermis of distal right foot. No significant erythema or warmth. No cyanosis or necrosis. Lower lateral sánchez maceration with thin linear slough, no tunneling, no purulence. Lateral upper portion of lower leg below the knee skin tear/maceration, without any significant surrounding erythema, no purulence. Pressure sores buttocks discussed w RN in ER L hand wound, stitches without significant surrounding erythema. Some crusting after serosanguineous drainage. No purulence. Data : 06/12/22 14:13 06/12/22 14:13 Micro: Microbiology 06/12/22 15:30 Blood Culture - Preliminary Blood SPECIMEN COLLECTED 06/12/22 15:15 Blood Culture - Preliminary Blood SPECIMEN COLLECTED A&P Assessment and plan (1) Sepsis: Sepsis, suspected soft tissue infection, wound infection, cellulitis left lower extremity, which is diffusely erythematous, warmer than the right. However, cannot exclude other cause, and recently also had bacteremia MSSA in October of this year for which completed 6 weeks of antibiotic therapy. She is also having new hypoxia, not normally requiring oxygen, currently requiring 3 L. . Antibiotic coverage so far received ceftriaxone, azithromycin, linezolid. Blood cultures been collected. Check lactic acid. Will additionally assess with CT angiogram chest given hypoxia, tachycardia as well as CT abdomen pelvis. Please reassess and continue wound care for gluteal wounds, lower extremity wounds. Additionally noted new hyperbilirubinemia, mild AST elevation. Will assess right upper quadrant ultrasound as well. Check CK. Trend liver parameters. UA was requested, although will need to be cathed. (2) Hypoxia: Newly requiring 2 L nasal cannula oxygen, not previously on oxygen. Tachycardia. Also CT angiogram for PE. Reports history of rash, hives with iodinated contrast dye, will give dose of Solu-Medrol. Continue empirically ceftriaxone, azithromycin, although does not have obvious pneumonia. Mild fluid overload, will get extra dialysis, but cautiously as does not appear severely overloaded. Complete troponin, EKG series. So far without rise. High-sensitivity troponin with moderate elevation, without delta, in setting of ESRD, likely some demand ischemia. Check COVID-19 PCR. Rapid was negative. (3) Wound infection: Continue ceftriaxone, add linezolid. Wound care: Foam dressing change daily on wounds on upper and lower buttock. Right sánchez: Medihoney, PolyMem Ag to any open areas, ABD pad. Ulcer of left lower leg: Medihoney, PolyMem Ag, cover dressing. Second toe of left foot wound: Dakin's wet-to-dry, (small Kerlix to wrap each toe individually), Eric wraps. Open wound right foot: Dakin's wet-to-dry twice daily, cover dressing (small Kerlix to wrap each toe individually). Plan ESRD: On HD MWF, right arm fistula. History of MSSA bacteremia: In October at that time thought to be secondary to possibly contamination of the fistula, was discharged with 6 weeks of antibiotics. Blood cultures are collected. 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 Wound care. Telfa, gauze dressing BID on L hand. Follow-up with dermatology. Anemia DM2 GERD HTN Hypothyroidism Morbid recently Attestations Medical Necessity Statement*: Admission of over 2 midnights is anticipated for assessment of management of sepsis, new hypoxia, cellulitis, wound infection in a lady with chronic wounds, ESRD. Coding Level of Care Code Acute Disc Pad Plate Filler for [facility] Fwd Exam Comprehensive Diagnoses Sepsis A41.9 Hypoxia R09.02 Wound infection T14.8XXA; L08.9
--- NOTE | 2022-06-12 16:54 | CTR_ITS ---
PROCEDURE INFORMATION: Exam: CT Abdomen And Pelvis Without Contrast Exam date and time: 06/12/2022 6:11 PM Age: 86 years old Clinical indication: Other: Septic; Prior surgery; Surgery type: Appendectomy. Hysterectomy. Cholecystectomy; Additional info: Sepsis TECHNIQUE: Imaging protocol: Computed tomography of the abdomen and pelvis without contrast. Radiation optimization: All CT scans at this facility use at least one of these dose optimization techniques: automated exposure control; mA and/or kV adjustment per patient size (includes targeted exams where dose is matched to clinical indication); or iterative reconstruction. COMPARISON: CT chest abd pel wo con 10/22/2021 10:55 PM RADIATION DOSE METRICS: Total DLP (mGy-cm): 1045 FINDINGS: Pleural spaces: Bilateral pleural effusions with adjacent compressive atelectasis. Heart: Multivessel atherosclerotic disease which involves the coronary arteries. Cardiomegaly. Liver: Normal. No mass. Gallbladder and bile ducts: The gallbladder has been removed. Pancreas: Normal. No ductal dilation. Spleen: Normal. No splenomegaly. Adrenal glands: Normal. No mass. Kidneys and ureters: There are cysts with benign features in the kidneys the larger of which measures 2.8 cm in the right kidney. Follow-up is not necessary. Both kidneys are atrophic. Stomach and bowel: Unremarkable. No obstruction. No mucosal thickening. Appendix: There has been an appendectomy. Intraperitoneal space: There is artifact through the upper abdomen making evaluation somewhat suboptimal. Vasculature: Unremarkable. No abdominal aortic aneurysm. Lymph nodes: Unremarkable. No enlarged lymph nodes. Urinary bladder: Unremarkable as visualized. Reproductive: The uterus is not visualized, consistent with hysterectomy. Bones/joints: Generalized osteopenia. Right femoral head is severely diminutive and flattened with severe degenerative changes across the residual right hip joint. There is a complex right hip joint effusion. Lower thoracic/lumbar leftward lateral curvature. There are degenerative changes in the visualized spine. Chronic appearing compression deformities of T11 and T12 vertebra. Soft tissues: Edema is present in the soft tissues surrounding the abdomen and pelvis. CT/CT abdomen pelvis wo con [id number] IMPRESSION: 1. Cardiomegaly with bilateral pleural effusions consistent with congestive heart failure. There is associated soft tissue anasarca. 2. Right femoral head is severely diminutive and flattened with severe degenerative changes across the residual right hip joint. There is a complex right hip joint effusion. Internal complexity raises concern for a septic joint effusion. 3. Multivessel atherosclerotic disease which involves the coronary arteries.
--- NOTE | 2022-06-12 17:10 | P.CONIM_ITS ---
Providers/Reason For Consult Consulting Physician/Specialty*: qian shirley md / telenephrology Reason for Consult*: ESRD care Requesting Physician: Dr Rosario Attending Physician: Dr Rosario Primary Care Provider: Char Parikh MD History of Present Illness History of Present Illness Dacia Kc is a 86 year old female ESRD on HD MWF via RUE AVG, Type 2 DM, Leg wounds, hypothyroidism, htn, h/o staph aureus bacteremia. Pt sent from rehab for hypoxemia, weakness, AMS. In ER was hypertensive at first. she is sob and confused- renal called for ESRD care. Review of Systems Narrative: weak, sob, confused. as above Medications/Allergies Home Medications Medication Instructions Recorded Confirmed Last Taken Type Lactobacillus rhamnosus GG 10 1 cap PO DAILY 05/19/20 06/12/22 06/12/22 History billion cell capsule (Culturelle) aspirin 81 mg tablet,delayed 81 mg PO DAILY 05/19/20 06/12/22 06/12/22 History release cholecalciferol (vitamin D3) 25 25 mcg PO DAILY 05/19/20 06/12/22 06/12/22 History mcg (1,000 unit) capsule (Vitamin D3) docusate sodium 100 mg capsule 100 mg PO DAILY 05/19/20 06/12/22 06/12/22 Histor y (Colace) levothyroxine 50 mcg tablet 50 mcg PO DAILY 05/19/20 06/12/22 06/12/22 History polyethylene glycol 3350 17 17 g PO DAILY 05/19/20 06/12/22 06/11/22 History gram/dose oral powder (Miralax) vitamin B complex and vitamin C 1 cap PO DAILY 05/19/20 06/12/22 06/12/22 History no.20-folic acid 1 mg capsule (Renal Caps) pantoprazole 40 mg tablet,delayed 40 mg PO DAILY 06/12/20 06/12/22 06/12/22 History release (Protonix) lorazepam 0.5 mg tablet (Ativan) 0.5 mg PO BEDTIME 10/05/21 06/12/22 06/11/22 History bisacodyl 10 mg rectal suppository 10 mg [place] DAILY PRN Constipation 10/23/21 06/12/22 10/21/21 08:19 History fluticasone propionate 50 50 mcg intranasal BID 10/23/21 06/12/22 06/12/22 History mcg/actuation nasal spray,suspension losartan 100 mg tablet 100 mg PO BEDTIME 10/23/21 06/12/22 06/11/22 History diphenhydramine HCl 25 mg capsule 25 mg PO TID PRN Allergy Symptoms 05/03/22 06/12/22 Unknown History (Benadryl) metoclopramide HCl 5 mg tablet 5 mg PO TID 05/03/22 06/12/22 06/12/22 History (Reglan) calcium carbonate 470 mg calcium 1,410 mg PO TID 06/12/22 06/12/22 06/12/22 History (1,177 mg) chewable tablet (Tums Ultra) cetirizine 10 mg tablet 10 mg PO DAILY 06/12/22 06/12/22 06/12/22 History diphenhydramine HCl 25 mg tablet 25 mg PO Q6H PRN Allergy Symptoms 06/12/22 06/12/22 Unknown History prednisone 50 mg tablet See Rx Instructions .Route .COMPLEX 06/12/22 06/12/22 Unknown History Allergies Allergy/AdvReac Type Severity Reaction Status Date / Time vancomycin Allergy Severe ALGY-Swell Verified 05/31/22 08:06 Lip/Tongue/Throat PFSH Acute PFSH: Medical History Anemia of chronic disease Anxiety Constipation 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 Fever GERD (gastroesophageal reflux disease) HTN (hypertension) Hypothyroidism Morbid obesity SIRS (systemic inflammatory response syndrome) Staphylococcus aureus bacteremia with sepsis Surgical History A-V fistula H/O hemorrhoidectomy H/O: hysterectomy Family History Father Alcoholism /alcohol abuse Mother Hypertension Denies family history of Chronic kidney disease (CKD) Social History Smoking and tobacco status: former smoker Quit status (tobacco): has quit using tobacco Former quit date comment: 40 yrs ago Alcohol intake: current Alcohol intake frequency: holidays/special occasions only Housing: [facility] Marital status: Current occupational status: retired Vitals/I&O/Wt Last Vital Signs Temp 98.4 F 06/12/22 14:26 Pulse 90 06/12/22 16:00 Resp 21 H 06/12/22 16:00 BP 133/56 06/12/22 16:00 Pulse Ox 95 06/12/22 16:00 O2 Del Method 06/12/22 14:12 O2 Flow Rate 3 06/12/22 14:12 Weight last 48 hrs Weight 72.575 kg Physical Exam Narrative: elderly, sob, confused, overweight vs noted heent- nc/at, eomi, anicteric neck supple lungs dull bases heart reg abd soft, nt, nd, + bs ext b/l legs wrapped and edema RUE AVF appears okay- non tender skin+ back wound neuro- waxing and waning MS. moves all 4 ext Data : 06/12/22 14:13 06/12/22 14:13 Micro: Microbiology 06/12/22 15:30 Blood Culture - Preliminary Blood SPECIMEN COLLECTED 06/12/22 15:15 Blood Culture - Preliminary Blood SPECIMEN COLLECTED A&P Assessment and plan (1) ESRD on dialysis: 86 yr old female 1. SOB/ ESRD- hd now 3 hrs, 2k, remove 2l as tolerated. if bp drops, dec fluid removal 2. assess for infection per medicine- blood cx x2 on hd. wbc 27 -imaging per medicine 3. dm control 4. check tsh 5. mild hypercalcemia- check pth- no vit d analouges -check phos 6. BNP >70,000- monitor w/ dialysis seen and examined w/ RN- telehealth visit discussed w/ Dr Rosario - time spent 50 min Plan see above Consult Attestations Time Spent in Patient Care: Greater than 35 minutes (>than 50% of time spent in counselling and/or direct pt care on unit) . Coding Level of Care Code Acute Student Admissions Clerk for Chg Fwd Diagnoses ESRD on dialysis N18.6; Z99.2
[2022-06-12 17:18] LABS: Creatine Phosphokinase 28 U/L (26-192)
[2022-06-12 17:55] LABS: Calcium 10.6 mg/dL (8.5-10.5)
[2022-06-12 17:59] LABS: Lactic Sepsis W/Reflex 2.1 mmol/L (0.5-2.2)
[2022-06-12 18:00] LABS: ABG PCO2 38.7 mmHg (35-45); ABG PH Result 7.48 (7.35-7.45); Arterial Blood Gas Hematocrit 31.8 % (37-47); Base Excess ABG 4.9 mmol/L (-2.0-2.0); Blood Gas Sample Type Arterial; Carboxyhemoglobin 0.4 %THgb (0.4-20.1); HCO3 ABG 28.8 mmol/L (22-26); HGB O2 Sat 91.2 % (95-100); Ionized Calcium Level - ABG 1.2 mmol/L (1.1-1.4); Methemoglobin 0.6 % (0.4-1.5); Oxygen Saturation ABG 92.2; PO2 ABG 70.4 mmHg (80.0-100.0); Potassium Level - ABG 4.9 mmol/L (3.5-5.0); Total Hemoglobin 10.4 g/dL (12-16)
[2022-06-12 18:01] LABS: Alveolar-Arterial Oxygen Gradi 14.4 mmHg (5-10); Blood Gas Operator Identificat ED; Blood Gas Sample Site Brachial, left; Oxygen Device NC
[2022-06-12 18:01] LABS: Parathyroid Hormone 133.8 pg/mL (15-65)
[2022-06-12 18:02] LABS: Hepatitis B Surface AB 94.3 (11.5-1000); Hepatitis B Surface Antigen Non-Reactive (Nonreactive); Hepatitis C Virus Antibody Non-Reactive (Nonreactive)
[2022-06-12 18:13] LABS: Reflex Lactate Order REFLEX LACTIC ORDERD
[2022-06-12] MEDS: iohexol 350 mg/mL 100 mL Btl IV (18:16)
[2022-06-12 20:38] LABS: Lactic Acid level (Lactate) 1.7 mmol/L (0.5-2.2)
[2022-06-12 20:43] LABS: Troponin 5 6HR 82.51 ng/L (0-10); Troponin 5 6HR Delta -2.49 ng/L (0-12)
--- NOTE | 2022-06-12 22:17 | PM.CONSULT ---
Providers/Reason For Consult Consulting Physician/Specialty*: Zen Blue DO/orthopedic surgery Reason for Consult*: Rule out right septic hip Attending Physician: Will Gomes Primary Care Provider: Char Parikh MD History of Present Illness History of Present Illness Dacia Kc is a 86 year old female with a history of chronic bilateral lower extremity wounds end-stage renal disease on hemodialysis that presents to the hospital today and was admitted with concerns for sepsis. Patient states she overall just was not feeling well today. She denies any chest pain did complain of some fatigue. Denies any cough. No nausea or vomiting. Recently had a biopsy of a lesion on her left hand with dressings in place and sutures in place. She has a remote history of GALEN a bacteremia thought to be after fistula manipulation and did receive 6 weeks antibiotic therapy. Her daughter is present with her at bedside. Further history reveals she has had issues with her right hip for years. They know that she has severe degenerative disease most pronounced starting around 2018. At baseline patient is a nonambulator. Last time patient ambulated was only for transfers only in October this past year. She is admitted by hospitalist team imaging of the pelvis demonstrate severe erosive changes of the right hip as well as a large complex joint effusion with concerns for septic arthritis per the read from the radiologist. Hospitalist team consult orthopedic surgery team for evaluation. Review of Systems General: Reports: 10 or more systems reviewed and unremarkable except in HPI and below Const: Reports: fatigue and malaise GI: Reports: nausea; Denies: vomiting or diarrhea Musc: Reports: extremity pain, extremity swelling, joint pain and limited range of motion Medications/Allergies Home Medications Medication Instructions Recorded Confirmed Last Taken Type Lactobacillus rhamnosus GG 10 1 cap PO DAILY 05/19/20 06/12/22 06/12/22 History billion cell capsule (Culturelle) aspirin 81 mg tablet,delayed 81 mg PO DAILY 05/19/20 06/12/22 06/12/22 History release cholecalciferol (vitamin D3) 25 25 mcg PO DAILY 05/19/20 06/12/22 06/12/22 History mcg (1,000 unit) capsule (Vitamin D3) docusate sodium 100 mg capsule 100 mg PO DAILY 05/19/20 06/12/22 06/12/22 History (Colace) levothyroxine 50 mcg tablet 50 mcg PO DAILY 05/19/20 06/12/22 06/12/22 History polyethylene glycol 3350 17 17 g PO DAILY 05/19/20 06/12/22 06/11/22 History gram/dose oral powder (Miralax) vitamin B complex and vitamin C 1 cap PO DAILY 05/19/20 06/12/22 06/12/22 History no.20-folic acid 1 mg capsule (Renal Caps) pantoprazole 40 mg tablet,delayed 40 mg PO DAILY 06/12/20 06/12/22 06/12/22 History release (Protonix) lorazepam 0.5 mg tablet (Ativan) 0.5 mg PO BEDTIME 10/05/21 06/12/22 06/11/22 History bisacodyl 10 mg rectal suppository 10 mg [place] DAILY PRN Constipation 10/23/21 06/12/22 10/21/21 08:19 History fluticasone propionate 50 50 mcg intranasal BID 10/23/21 06/12/22 06/12/22 History mcg/actuation nasal spray,suspension losartan 100 mg tablet 100 mg PO BEDTIME 10/23/21 06/12/22 06/11/22 History diphenhydramine HCl 25 mg capsule 25 mg PO TID PRN Allergy Symptoms 05/03/22 06/12/22 Unknown History (Benadryl) metoclopramide HCl 5 mg tablet 5 mg PO TID 05/03/22 06/12/22 06/12/22 History (Reglan) calcium carbonate 470 mg calcium 1,410 mg PO TID 06/12/22 06/12/22 06/12/22 History (1,177 mg) chewable tablet (Tums Ultra) cetirizine 10 mg tablet 10 mg PO DAILY 06/12/22 06/12/22 06/12/22 History diphenhydramine HCl 25 mg tablet 25 mg PO Q6H PRN Allergy Symptoms 06/12/22 06/12/22 Unknown History prednisone 50 mg tablet See Rx Instructions .Route .COMPLEX 06/12/22 06/12/22 Unknown History Allergies Allergy/AdvReac Type Severity Reaction Status Date / Time vancomycin Allergy Severe ALGY-Swell Verified 05/31/22 08:06 Lip/Tongue/Throat Iodinated Contrast Media Allergy Mild ALGY-Rash Unverified 06/12/22 17:26 PFSH Acute PFSH: Medical History (Updated 06/12/22 @ 22:28 by Zen Blue DO) Anemia of chronic disease Anxiety Constipation 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 Fever GERD (gastroesophageal reflux disease) HTN (hypertension) Hypothyroidism Morbid obesity Right hip joint effusion SIRS (systemic inflammatory response syndrome) Staphylococcus aureus bacteremia with sepsis Surgical History A-V fistula H/O hemorrhoidectomy H/O: hysterectomy Family History Father Alcoholism /alcohol abuse Mother Hypertension Denies family history of Chronic kidney disease (CKD) Social History Smoking and tobacco status: former smoker Quit status (tobacco): has quit using tobacco Former quit date comment: 40 yrs ago Alcohol intake: current Alcohol intake frequency: holidays/special occasions only Housing: Skilled Nursing Marital status: Current occupational status: retired Vitals/I&O/Wt Last Vital Signs Temp 100.6 F H 06/12/22 19:53 Pulse 86 06/12/22 19:53 Resp 14 06/12/22 19:53 BP 149/73 06/12/22 19:53 Pulse Ox 98 06/12/22 18:00 O2 Del Method 06/12/22 14:12 O2 Flow Rate 3 06/12/22 14:12 06/12/22 06/12/22 06/12/22 06:59 14:59 22:59 Intake Total 300 / 300 Balance 300 / 300 Weight last 48 hrs Weight 160 lb Physical Exam Narrative: Orthopedic examination: Examination of patient's bilateral upper extremities demonstrates no tenderness palpation of the shoulders. Patient has no pain to the left elbow. Currently receiving dialysis to the right upper extremity there is not examined. The left hand does have a previous incision over the dorsal radial aspect at the wrist with sutures in place no significant signs of infection incision appears to be healing with no drainage or palpable fluctuance. Examination of the bilateral lower extremities demonstrates patient's right lower extremity is severely shortened and externally rotated. Patient has pannus irritation and apparent rash within the pannus of the right hip. Patient has tenderness palpation at the right hip as well as the right knee. She has right lower extremity pitting edema with superficial ulcerations throughout the right lower extremity and into the right foot. Distal pulses palpable. Patient does have pain with logroll. She is unable to actively lift her legs/right hip up out of bed. Does endorse sensation intact but some decreased sensation consistent with diabetic neuropathy and her distal pulses are palpable. Examination of left hip demonstrates no tenderness to palpation or pain with logroll no tenderness palpation of the knee. There is ulcerations and erythema over the dorsal aspect of the foot again with noticeable edema. She is able to wiggle her toes plantarflex dorsiflex the ankle and decreased sensation distally consistent with diabetic neuropathy. Compartments are soft compressible throughout the body. Data : 06/12/22 14:13 06/12/22 14:13 Micro: Microbiology 06/12/22 15:30 Blood Culture - Preliminary Blood SPECIMEN COLLECTED 06/12/22 15:15 Blood Culture - Preliminary Blood SPECIMEN COLLECTED Other CT: My impression: Review of patient's abdomen pelvis CT scan does demonstrate a severely erosive changes of the right femoral head now on the superior acetabulum the residual aspect of the head appears to be completely eroded away. There does appear to be joint effusion noted. I do not appreciate any iliopsoas abscess. No other fracture dislocation noted. Reviewing of these images I subsequently looked back through patient's file and she had a normal-appearing pelvis x-ray in 2017 from that time the next x-ray of the hip was in 2018 and at that point time significant erosive changes had occurred. There is a CT back in 03/26/2020 of the pelvis where again this shows the severe erosive changes and joint effusion of the right hip. From this image study to today's image there is some degenerative changes but overall this appears to be something that is been in play for several years and not an acute change noted. Radiologist's impression: IMPRESSION: 1. Cardiomegaly with bilateral pleural effusions consistent with congestive heart failure. There is associated soft tissue anasarca. 2. Right femoral head is severely diminutive and flattened with severe degenerative changes across the residual right hip joint. There is a complex right hip joint effusion. Internal complexity raises concern for a septic joint effusion. 3. Multivessel atherosclerotic disease which involves the coronary arteries. A&P Assessment and plan (1) Right hip joint effusion: (2) ESRD on dialysis: (3) Sepsis: (4) Wound infection: Plan MDM: Dacia 86-year-old female who presented with with generalized malaise and fatigue and overall just was not feeling well she presented to the emergency department found to have a white count of 27. Concerns for sepsis with no known source at this time. She has had history of bacteremia in the past. She is on dialysis and has a right arm fistula. She has bilateral lower extremity ulceration she has a previous skin cancer that was excised by dermatology in the left hand. And patient's been hypoxic. Requiring nasal cannula. Throughout work-up CT of the abdomen and pelvis demonstrated severe erosive changes of the right femoral head and acetabulum as well as joint effusion with concern for possible septic arthritis as a result orthopedic surgery team was consulted. This point time had detailed discussion with patient and family at bedside about her current diagnosis. This point time I expressed I have thoroughly looked into patient's past medical imaging and noted the most significant change from 2017 where her right hip did appear normal to 2018 where she had significant erosive changes of the femoral head at that point time. These changes appear to be severely chronic and at this point time I do not know if this is patient's acute process or septic source. The CT back in 03/26/2020 is fairly comparable as far as the erosive changes of the femoral head however there has been mild progressive changes noted. At this point in time with a no exact known source of infection I do feel appropriate that patient undergo a right hip aspiration with interventional radiology just to rule out this as a septic source. Orthopedic surgery team will remain on board and will continue to monitor after the joint aspiration and make further recommendations to follow. At this point time she does have a chance of multiple sources for an infection. We will rule out a septic hip first and make further recommendations to follow. Patient on empiric antibiotics at this time. Appreciate internal medicine for medical management. Patient and daughter understand agree with current plan. All questions answered. Coding Level of Care Code Acute Dental Detail Representative for Kasi Fwwill Diagnoses Right hip joint effusion M25.451 ESRD on dialysis N18.6; Z99.2 Sepsis A41.9 Wound infection T14.8XXA; L08.9 Time Spent (min) 55
--- NOTE | 2022-06-12 22:46 | PC.NURSE ---
patient in Dialysis with daughter at bedside
[2022-06-12] MEDS: linezolid premix 600 MG/300 ML PREMIX 300 MG IV (23:36)
[2022-06-12] MEDS: heparin 5,000 unit/mL INJ 1 mL 5000 UNIT SUBCUT (23:36)
[2022-06-12] MEDS: fluticasone nasal spray 16gm Btl 1 SPRAY INTRANASAL (23:36)
[2022-06-13] VITALS (7 sets, daily range): BP systolic 115–144; BP diastolic 50–84; PULSE 58–75; RESP 12–17; TEMP 35.8–37.3; O2SAT 90–94
--- NOTE | 2022-06-13 | US_ITS ---
WS: [id number] ULTRASOUND SOFT TISSUES RIGHT hip HISTORY: Evaluate for possible hip effusion. COMPARISON: Prior CT 06/12/2022 reviewed. TECHNIQUE: 2-D and color Doppler imaging is submitted. There is mild soft tissue edema very superficial subcutaneous tissues. No joint effusion is identifie d. There is no fluid collection. US/US soft tissue/extremity [id number] IMPRESSION: No soft tissue fluid collection identified by ultrasound.
[2022-06-13] MEDS: piperacillin-tazobactam 3.375 GM in sodium chloride 0.9% (plus) 50 ML IV ×2 (01:24→15:12)
[2022-06-13 04:53] LABS: Basophils % 0.1 %; Hematocrit 30.1 % (37.0-47.0); Hemoglobin 9.4 g/dL (11.5-15.3); Lymphocytes # 0.7 10^3/uL (0.8-4.8); Mean Corpuscular HGB Conc 31.2 g/dL (30.0-36.0); Mean Corpuscular Hemoglobin 29.2 pg (28.0-34.0); Mean Corpuscular Volume 93.5 fl (81-99); Mean Platelet Volume 10.4 fL (7.4-10.4); Monocytes % 6.2 %; Neutrophils # 14.98 10^3/uL (1.8-7.7); Nucleated Red Blood Cells % 0 %; Platelet Count 215 10^3/cmm (130-400); Red Blood Count 3.22 10^6/uL (4.1-5.3); Red Cell Distribution Width 18.5 % (12.1-15.1); White Blood Count 16.8 10^3/uL (4.0-10.0)
[2022-06-13 05:10] LABS: Alanine Aminotransferase 20 U/L (0-33); Albumin Level 3.2 g/dL (3.5-5.2); Alkaline Phosphatase 77 U/L (35-105); Anion Gap 15.1 (5-19); Aspartate Amino Transferase 25 U/L (0-32); Blood Urea Nitrogen 22 mg/dL (8-23); Calcium 9.4 mg/dL (8.5-10.5); Carbon Dioxide 30 mmol/L (22-29); Chloride 94 mmol/L (98-107); Globulin 2.7 g/dL (1.3-4.6); Glucose 101 mg/dL (65-115); Osmolality Calculated 283 mOsm/kg (285-295); Potassium 4.1 mmol/L (3.5-5.1); Sodium 135 mmol/L (136-145); Total Bilirubin 0.6 mg/dL (0.15-1.2); Total Protein 5.9 g/dL (6.6-8.7)
[2022-06-13 05:27] LABS: 25 Hydroxy Vitamin D 55 ng/mL (30-100)
[2022-06-13] MEDS: acetaminophen 325 mg Tablet 650 MG PO ×3 (06:12→20:34)
[2022-06-13] MEDS: TRAMadol 50 mg Tablet PO ×3 (06:12→20:34)
[2022-06-13 06:32] LABS: Adenovirus Not Detected (NOT DETECT); Chlamydia Pneumoniae Not Detected (NOT DETECT); Coronavirus 229E,HKU1,NL63,OC4 Not Detected (NOT DETECT); Human Metapneumovirus Not Detected (NOT DETECT); Human Rhinovirus/Enterovirus Not Detected (NOT DETECT); Influenza A Not Detected (NOT DETECT); Influenza A H1 Not Detected (NOT DETECT); Influenza A H1-2009 Not Detected (NOT DETECT); Influenza A H3 Not Detected (NOT DETECT); Influenza B Not Detected (NOT DETECT); Mycoplasma Pneumoniae Not Detected (NOT DETECT); Parainfluenza Virus Type 1 Not Detected (NOT DETECT); Parainfluenza Virus Type 2 Not Detected (NOT DETECT); Parainfluenza Virus Type 3 Not Detected (NOT DETECT); Parainfluenza Virus Type 4 Not Detected (NOT DETECT); Respiratory Syncytial Virus A Not Detected (NOT DETECT); Respiratory Syncytial Virus B Not Detected (NOT DETECT); SARS-COV-2 Not Detected (NOT DETECT)
--- NOTE | 2022-06-13 07:39 | P.PN_ITS ---
Subjective Subjective: more awake, weak and lethargic. dec sob. has edems Medications: Reviewed: Yes Medication Review Details: Current Medications Acetaminophen (Acetaminophen 325 Mg Tablet) 650 mg PO Q6H PRN PRN Reason: Mild/Mod Pain Or Temp >/= 101 Last Admin: 06/13/22 06:12 Dose: 650 mg Aspirin (Aspirin 81 Mg Ec Tablet) 81 mg PO DAILY [facility] Bisacodyl (Bisacodyl 10 Mg Supp) 10 mg [place] DAILY PRN PRN Reason: Constipation Docusate Sodium (Docusate Sodium 100 Mg Capsule) 100 mg PO DAILY [facility] Fluticasone Propionate (Fluticasone Nasal [place] 16gm Btl) 1 spray INTRANASAL BID [facility] Last Admin: 06/12/22 23:36 Dose: 1 spray Heparin Sodium (Porcine) (Heparin 5,000 Unit/Ml Inj 1 Ml) 5,000 unit SUBCUT Q12 H BLAYNE Last Admin: 06/12/22 23:36 Dose: 5,000 unit Azithromycin 250 mg/ Sodium (Chloride) 250 mls @ 250 mls/hr IV Q24H [facility]; Protocol Linezolid (Zyvox Premix) 600 mg in 300 mls @ 300 mls/hr IV Q12H [facility]; Protocol Last Infusion: 06/13/22 01:28 Dose: Infused Piperacillin Sod/Tazobactam (Sod 3.375 gm/ Sodium Chloride) 50 mls @ 12.5 mls/hr IV Q12H [facility]; Protocol Last Infusion: 06/13/22 05:09 Dose: Infused Levothyroxine Sodium (Levothyroxine 50 Mcg Tablet) 50 mcg PO DAILY [facility] Metoclopramide HCl (Metoclopramide 10 Mg Tablet) 5 mg PO TID [facility] Multivitamins (X-Pvvcxyc-Qcgzsyj C Tablet) 1 each PO DAILY [facility] Non-Formulary Medication (B Complex With C 20-Folic Acid [Renal Caps]) 1 cap PO DAILY [facility] Ondansetron HCl (Ondansetron 2 Mg/Ml Sdv 2 Ml) 4 mg IVP Q8H PRN PRN Reason: vomiting, or N/V if npo Pantoprazole Sodium (Pantoprazole Dr 40 Mg Tablet) 40 mg PO DAILY [facility] Polyethylene Glycol (Polyethylene Glycol 3350 Pkt 17 Gm) 17 gm PO DAILY [facility] Tramadol HCl (Tramadol 50 Mg Tablet) 50 mg PO Q6H PRN PRN Reason: MODERATE PAIN Last Admin: 06/13/22 06:12 Dose: 50 mg Vitals/I&O/Wt Last Vital Signs Temp 98.4 F 06/13/22 04:00 Pulse 75 06/13/22 04:00 Resp 17 06/13/22 04:00 BP 115/84 06/13/22 04:00 Pulse Ox 94 06/13/22 04:00 O2 Del Method 06/13/22 01:02 O2 Flow Rate 3 06/12/22 14:12 06/12/22 06/13/22 06/13/22 22:59 06:59 14:59 Intake Total 600 / 600 470 / 1070 Output Total 2300 / 2300 Balance -1700 / -1700 470 / -1230 Weight last 48 hrs Weight 94.71 kg Weight 98 kg Weight 72.575 kg Physical Exam Narrative: elderly lady, weak, disoriented, overweight in bed vs noted heent- nc/at, eomi, anicteric neck supple lungs dull bases heart reg abd soft, nt, nd, + bs ext b/l legs wrapped and edema RUE AVF appears okay- non tender skin+ back wound neuro- weak, lethargic, awakens, follows simple commands Data : 06/13/22 04:30 06/13/22 04:30 Micro: Microbiology 06/12/22 15:15 Blood Culture - Preliminary Blood SPECIMEN COLLECTED 06/12/22 15:30 Blood Culture - Preliminary Blood SPECIMEN COLLECTED 06/12/22 20:12 Blood Culture - Preliminary Blood SPECIMEN COLLECTED 06/12/22 20:11 Blood Culture - Preliminary Blood SPECIMEN COLLECTED A&P Assessment and plan (1) ESRD on dialysis: 86 yr old female 1. ESRD- has effusions- s/p HD yesterday- will do extra SUF today: 2-2 hrs, remove 2l as tolerated. 2. infection evaluation as per medicine- WBC improving w/ abx. Q Hip aspiration. Q if should performa thoracentesis 3. dm control 4. check tsh 5. mild hypercalcemia- pth- 134, no vit d analouges -if ca does not improve, consider sensipar -normal phos 6. BNP >70,000- monitor w/ dialysis seen and examined w/ RN- telehealth visit - time spent 30 min Plan see above Attestations Medical Necessity Statement*: esrd, ams, sob, effusions Time Spent in Patient Care: 16 - 35 minutes (>than 50% of time spent in counselling and/or direct pt care on unit) . Coding Level of Care Code Acute Inspector Bicycle for g Fwd Diagnoses ESRD on dialysis N18.6; Z99.2
[2022-06-13] MEDS: b-complex-vitamin c Tablet 1 EACH PO (09:52)
[2022-06-13] MEDS: pantoprazole DR 40 mg Tablet PO (09:52)
[2022-06-13] MEDS: levothyroxine 50 mcg Tablet PO (09:52)
[2022-06-13] MEDS: docusate sodium 100 mg Capsule PO (09:52)
[2022-06-13] MEDS: metoclopramide 10 mg Tablet 5 MG PO ×3 (09:52→20:35)
[2022-06-13] MEDS: aspirin 81 mg EC Tablet PO (09:52)
--- NOTE | 2022-06-13 10:08 | P.PN_ITS ---
Subjective Subjective: Patient seen and examined this morning. Patient resting comfortably and not awaken after she had a had dialysis overnight. Daughter at bedside. At this point time we will await joint aspiration of the right hip by interventional radiology today. Further recommendations to follow. Vitals/I&O/Wt Last Vital Signs Temp 99.1 F 06/13/22 08:00 Pulse 73 06/13/22 08:00 Resp 12 06/13/22 08:00 BP 144/77 06/13/22 08:00 Pulse Ox 90 06/13/22 08:00 O2 Del Method 06/13/22 08:00 O2 Flow Rate 3 06/12/22 14:12 06/12/22 06/13/22 06/13/22 22:59 06:59 14:59 Intake Total 600 / 600 470 / 1070 Output Total 2300 / 2300 Balance -1700 / -1700 470 / -1230 Weight last 48 hrs Weight 208 lb 12.8 oz Weight 216 lb 0.848 oz Weight 160 lb Physical Exam Narrative: Patient not examined this morning she is resting comfortably left alone as she had a long night she was seen and examined late last night with full detail examination on my consult note. We will continue to await for right hip joint aspiration Data : 06/13/22 04:30 06/13/22 04:30 Micro: Microbiology 06/12/22 15:15 Blood Culture - Preliminary Blood SPECIMEN COLLECTED 06/12/22 15:30 Blood Culture - Preliminary Blood SPECIMEN COLLECTED 06/12/22 20:12 Blood Culture - Preliminary Blood SPECIMEN COLLECTED 06/12/22 20:11 Blood Culture - Preliminary Blood SPECIMEN COLLECTED A&P Assessment and plan (1) Right hip joint effusion: Plan No plan for any acute surgical intervention at this time Recommend right hip joint aspiration per interventional radiology Recommend on aspiration it be sent for a cell count, aerobic & gram stain, anaerobic cultures and crystals Orthopedics will continue to follow along and follow-up on aspiration results. Appreciate allowing the partake care for this patient Attestations Medical Necessity Statement*: Patient presents with sepsis picture admitted by hospitalist team on empiric antibiotics awaiting right hip joint aspiration per interventional radiology Coding Level of Care Code Acute Chocolate Temperer for Chg Fwd Diagnoses Right hip joint effusion M25.451 Time Spent (min) 15
[2022-06-13] MEDS: fluticasone nasal spray 16gm Btl 1 SPRAY INTRANASAL ×2 (10:13→18:21)
[2022-06-13 12:04] LABS: Erythrocyte Sedimentation Rate 8 mm/hr (0-15)
[2022-06-13 12:11] LABS: C Reactive Protein 90.1 mg/L (0.0-4.9)
--- NOTE | 2022-06-13 12:21 | PC.CHAP ---
Pastoral Care Encounter/Spiritual Assessment Type of Contact [] Declined pipeman visit [] Patient/Family/Request visit [] Outpatient visit [] Follow-up visit [] Physician referral [] Code/Alert [x] Routine visit [] Staff referral [] Actively dying [] Patient sleeping [] Family support [] [x] Out of room [] Palliative care [] [] Receiving care in room [] Pre-surgical visit [] Trauma [] Long length of stay [] ICU visit [] Other: Relational/Emotional Strength [x] Patient feels connected with others/family/visitors/staff [] Distress [] Loneliness/isolation [] Abandonment Spirituality of Patient [x] Person of Sharda [] Attends Pentecostalism of their Sharda [x] Believes in Prayer [] Reads Bible or Yazdanism materials [] There are Spiritual issues to be addressed Director Of Occupational Therapy Interventions [] Prayer [] Active listening [] Non-anxious presence [] Spiritual/emotional support [] Crisis/trauma care [] Spiritual counseling [] Bereavement support [] Provided bereavement packet [] Provided Bible/devotional materials [] Provided toy/stuffed animal, coloring book to patient or family member [] Provided Communion [] Anointing/[place] [] Salvation [x] Completed spiritual assessment [] Other: Impact on Illness or Injury [] Angry [] Fearful [] Anxious [] Often cries [] Exhaustion [] Unable to work [] Unable to attend mandaeism [] Unable to walk/stand [] Unable to read [] Unable to drive [] Unable to eat/drink [] Unable to sleep [] Unable to be with family [] Patient intubated [] Other: Summary Time spent with patient 10 min
[2022-06-13 12:35] LABS: Procalcitonin 0.63 ng/mL (0-0.5)
[2022-06-13] MEDS: heparin 5,000 unit/mL INJ 1 mL 5000 UNIT SUBCUT ×2 (13:00→21:19)
[2022-06-13] MEDS: linezolid premix 600 MG/300 ML PREMIX 300 MG IV ×2 (13:12→22:15)
--- NOTE | 2022-06-13 13:33 | P.PN_ITS ---
Subjective Subjective: Patient was seen this morning, she is on dialysis, she tells me that she is feeling well, no significant shortness of breath, not really requiring any oxygen, alert oriented x3, she has no particular complaints, no shortness of breath, no abdominal pain, she does not really complain of any specific Hip pain Vitals/I&O/Wt Last Vital Signs Temp 96.4 F L 06/13/22 12:59 Pulse 68 06/13/22 12:59 Resp 14 06/13/22 12:59 BP 130/56 06/13/22 12:59 Pulse Ox 90 06/13/22 08:00 O2 Del Method 06/13/22 08:00 O2 Flow Rate 3 06/12/22 14:12 06/12/22 06/13/22 06/13/22 22:59 06:59 14:59 Intake Total 600 / 600 470 / 1070 418 / 418 Output Total 2300 / 2300 2300 / 2300 Balance -1700 / -1700 470 / -1230 -1882 / -1882 Weight last 48 hrs Weight 93.2 kg Weight 94.71 kg Weight 98 kg Weight 72.575 kg Physical Exam Const: COMMON NORMALS: no acute distress and patient oriented x3 Resp: COMMON NORMALS: normal respiratory effort, No retractions, No use of accessory muscles and clear to auscultation bilaterally AUSCULTATION: clear to auscultation bilaterally Cardio: COMMON NORMALS: regular rate, regular rhythm, S1 normal heart sound present and S2 normal heart sound present RATE: regular rate RHYTHM: regular rhythm HEART SOUNDS: S1 normal heart sound present and S2 normal heart sound present GI: COMMON NORMALS: Normal to inspection, nondistended, normoactive bowel sounds present and non-tender Extremity: COMMON NORMALS: no pedal edema Neuro: COMMON NORMALS: patient oriented x3 Psych: COMMON NORMALS: mental status grossly normal Data : 06/13/22 04:30 06/13/22 04:30 Micro: Microbiology 06/12/22 15:15 Blood Culture - Preliminary Blood SPECIMEN COLLECTED 06/12/22 15:30 Blood Culture - Preliminary Blood SPECIMEN COLLECTED 06/12/22 20:12 Blood Culture - Preliminary Blood SPECIMEN COLLECTED 06/12/22 20:11 Blood Culture - Preliminary Blood SPECIMEN COLLECTED A&P Assessment and plan (1) Sepsis: Sepsis, suspected soft tissue infection, wound infection, cellulitis left lower extremity, which is diffusely erythematous, warmer than the right. However, cannot exclude other cause, and recently also had bacteremia MSSA in October of this year for which completed 6 weeks of antibiotic therapy. She is also having new hypoxia, not normally requiring oxygen, was requiring 3 L now off oxygen. -CT abdomen pelvis showed a right hip complex fluid collection, orthopedic service has been consulted, potentially will undergo right hip aspiration to evaluate for septic joint -Eliquis ESR, CRP, Pro-Pedro -CT of the chest did not show any significant focal pneumonia or any acute infiltrates, but there is a potential aspiration (2) Hypoxia: Newly requiring 2 L nasal cannula oxygen, not previously on oxygen. Tachycardia. Also CT angiogram for PE. Reports history of rash, hives with iodinated contrast dye, will give dose of Solu-Medrol. Likely fluid overload from pulmonary edema, fluid overload Continue empirically ceftriaxone, azithromycin, although does not have obvious pneumonia. Mild fluid overload, will get extra dialysis, but cautiously as does not appear severely overloaded. Complete troponin, EKG series. So far without rise. High-sensitivity troponin with moderate elevation, without delta, in setting of ESRD, likely some demand ischemia. Check COVID-19 PCR. Rapid was negative. Will have speech therapy evaluate patient for possible aspiration (3) Wound infection: Continue ceftriaxone, add linezolid. Wound care: Foam dressing change daily on wounds on upper and lower buttock. Right sánchez: Medihoney, PolyMem Ag to any open areas, ABD pad. Ulcer of left lower leg: Medihoney, PolyMem Ag, cover dressing. Second toe of left foot wound: Dakin's wet-to-dry, (small Kerlix to wrap each toe individually), Eric wraps. Open wound right foot: Dakin's wet-to-dry twice daily, cover dressing (small Kerlix to wrap each toe individually). (4) Right hip joint effusion: - We will undergo right hip aspiration, orthopedic service consulted, he has here, CRP, Pro-Pedro, blood cultures, ultrasound (5) Acute respiratory failure with hypoxemia: - Likely fluid overload, pulmonary edema -Continue dialysis, clinically improving off oxygen Plan ESRD: On HD MWF, right arm fistula. History of MSSA bacteremia: In October at that time thought to be secondary to possibly contamination of the fistula, was discharged with 6 weeks of antibiotics. Had a tagged white blood cell scan which was unremarkable blood cultures are collected. 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 Wound care. Telfa, gauze dressing BID on L hand. Follow-up with dermatology. Anemia DM2 GERD HTN Hypothyroidism Morbid recently Attestations Medical Necessity Statement*: Patient requires a position, inpatient, greater than 2 midnights, for fluid overload, pulmonary edema, right hip joint effusion Coding Level of Care Code Acute Para Machine Operator for g Fwd Diagnoses Sepsis A41.9 Hypoxia R09.02 Wound infection T14.8XXA; L08.9 Right hip joint effusion M25.451 Acute respiratory failure with hypoxemia J96.01
[2022-06-13] MEDS: polyethylene glycol 3350 Pkt 17 gm PO (20:36)
[2022-06-13] MEDS: azithromycin 250 MG in sodium chloride 0.9% 250 ML IV (21:14)
--- NOTE | 2022-06-13 22:04 | USCV_ITS ---
Dacia Kc Age: 86 Gender: F : 1935 Exam Date: 06/13/2022 07:46 Ordering Phys: Will Gomes MD Technologist: Karis Glaser Exam Location: [facility] [place] Indication: leg swelling ulcers PROCEDURES: The venous duplex Doppler examination of both lower extremities was performed in the standard fashion. The following venous structures were evaluated: common femoral vein, profunda vein, proximal portion of the greater saphenous vein, superficial femoral vein, and the popliteal vein. FINDINGS: Normal 2-D Doppler and augmentation and compressibility throughout the lower extremity venous structures. Additional imaging through the proximal calf veins also reveals no thrombus. Limited evaluation of the greater saphenous vein is patent with no thrombus.. CONCLUSIONS No evidence of right lower extremity DVT. No evidence of left lower extremity DVT. Jim Maddox MD (Electronically Signed) Final Date: 13 June 2022 10:19 S
--- NOTE | 2022-06-13 22:04 | US_ITS ---
WS: [id number] RIGHT UPPER QUADRANT ULTRASOUND HISTORY: sepsis, hyperbilirubinemia COMPARISON: 06/18/2010 Liver: 15.5 cm in length. Liver is top normal size. Multiple coarse echotexture from hepatic steatosi s. Surface of the liver is also slightly nodular raising the question of cirrhosis. No mass. Portal Vein: Normal hepatopetal flow with monophasic waveform. Gallbladder: Status post cholecystectomy. CBD: 0.2 cm Pancreas: Normal size and echogenicity. Right kidney: Very poor definition of the RIGHT kidney. Suspect there is severe chronic medical renal disease. No history of nephrectomy. Aorta and IVC: Unremarkable abdominal aorta and IVC. No ascites. US/US abdomen limited [id number] IMPRESSION: 1. Mild hepatomegaly with changes of cirrhosis. 2. Prior cholecystectomy. 3. RIGHT kidney is not identified. Suspect severe chronic medical renal diseas e.
[2022-06-14] MEDS: piperacillin-tazobactam 3.375 GM in sodium chloride 0.9% (plus) 50 ML IV ×2 (01:17→13:05)
[2022-06-14] MEDS: TRAMadol 50 mg Tablet PO ×4 (02:24→21:42)
[2022-06-14] MEDS: acetaminophen 325 mg Tablet 650 MG PO ×4 (02:24→21:41)
[2022-06-14 04:00] VITALS: BP 133/73; PULSE 58; RESP 17; TEMP 36.4; O2SAT 93
[2022-06-14 05:24] LABS: Basophils % 0.3 %; Eosinophils # 0.1 10^3/uL (0.0-0.8); Eosinophils % 1.2 %; Hematocrit 30.6 % (37.0-47.0); Hemoglobin 9.3 g/dL (11.5-15.3); Lymphocytes # 0.8 10^3/uL (0.8-4.8); Mean Corpuscular HGB Conc 30.4 g/dL (30.0-36.0); Mean Corpuscular Hemoglobin 28.9 pg (28.0-34.0); Mean Platelet Volume 10.5 fL (7.4-10.4); Monocytes # 0.8 10^3/uL (0.2-0.9); Neutrophils # 5.76 10^3/uL (1.8-7.7); Nucleated Red Blood Cells % 0 %; Platelet Count 213 10^3/cmm (130-400); Red Blood Count 3.22 10^6/uL (4.1-5.3); Red Cell Distribution Width 18.6 % (12.1-15.1); White Blood Count 7.5 10^3/uL (4.0-10.0)
[2022-06-14 05:43] LABS: Alanine Aminotransferase 16 U/L (0-33); Alkaline Phosphatase 61 U/L (35-105); Aspartate Amino Transferase 18 U/L (0-32); Blood Urea Nitrogen 33 mg/dL (8-23); Calcium 9.3 mg/dL (8.5-10.5); Carbon Dioxide 27 mmol/L (22-29); Chloride 94 mmol/L (98-107); Globulin 2.5 g/dL (1.3-4.6); Glucose 103 mg/dL (65-115); Magnesium 2.1 mg/dL (1.7-2.3); Osmolality Calculated 292 mOsm/kg (285-295); Sodium 137 mmol/L (136-145); Total Bilirubin 0.5 mg/dL (0.15-1.2); Total Protein 5.5 g/dL (6.6-8.7)
[2022-06-14 05:49] LABS: Anion Gap 19.8 (5-19); Potassium 3.8 mmol/L (3.5-5.1)
[2022-06-14 07:18] VITALS: BP 135/63; PULSE 63; RESP 18; TEMP 36.8; O2SAT 92
[2022-06-14] MEDS: pantoprazole DR 40 mg Tablet PO (08:50)
[2022-06-14] MEDS: levothyroxine 50 mcg Tablet PO (08:50)
[2022-06-14] MEDS: b-complex-vitamin c Tablet 1 EACH PO (08:50)
[2022-06-14] MEDS: docusate sodium 100 mg Capsule PO (08:50)
[2022-06-14] MEDS: metoclopramide 10 mg Tablet 5 MG PO ×3 (08:50→20:16)
[2022-06-14] MEDS: aspirin 81 mg EC Tablet PO (08:50)
[2022-06-14] MEDS: fluticasone nasal spray 16gm Btl 1 SPRAY INTRANASAL ×2 (08:52→17:21)
[2022-06-14] MEDS: heparin 5,000 unit/mL INJ 1 mL 5000 UNIT SUBCUT ×2 (10:24→21:43)
[2022-06-14] MEDS: linezolid premix 600 MG/300 ML PREMIX 300 MG IV ×2 (11:01→21:43)
[2022-06-14 11:31] VITALS: BP 150/75; PULSE 60; RESP 18; TEMP 36.8; O2SAT 94
--- NOTE | 2022-06-14 14:21 | PM.PN ---
Subjective Subjective: The following discussion was made in the presence of Dr. Blue, and nursing staff, patient's daughter is at bedside -Dr. Blue discussed patient's CT scan results, his discussion with radiology, ultrasound report, and history of CT of the hip imaging, including tagged white blood cell scan -Patient has been told that she has severe degenerative changes in her right hip, and surgeons have declined in the past to do any intervention -However given her CT findings of possible fluid collection, the concern was for possible septic joint, given her prior history of staph aureus bacteremia without a clear etiology -Patient's daughter tells me that she has received chronic antibiotic therapy, she also was transferred up to [facility] for chronic antibiotic therapy, source was unknown, but she received 6 weeks of antibiotic therapy since that she has been doing okay -Currently her ESR is minimally elevated, CRP and Pro-Pedro minimally elevated, blood cultures remain unremarkable, she was afebrile, white blood cell count has come down, the likely source of elevated white blood cell count is her cellulitis -However there is always a possibility that this could be an indolent infection although fairly unlikely but the only way to know for sure is to do a needle sample of joint fluid -However after discussion with radiology, discussed with Dr. Blue, the thought was is that there is really no fluid there to collect -However Dr. Blue gave the opportunity for potential joint sampling to patient, to completely rule out the fact that he might be a septic joint, to exhaust all possibilities however there is risks of the procedure and if it is a dry trap we could hang our hat since they we have done everything -After discussing the risks and benefits of all options, patient and daughter voiced understanding, all questions answered they declined joint sampling and arthrocentesis for now -We will continue to monitor blood cultures, if indeed she does have recurrent bacteremia in the future, then we can certainly have a good reason to pursue sampling and other options include MRI of the hip or repeating a bone scan -Patient voices any, all questions answered -Patient does not that she is feeling better, remains afebrile on room air Vitals/I&O/Wt Last Vital Signs Temp 98.2 F 06/14/22 11:31 Pulse 60 06/14/22 11:31 Resp 18 06/14/22 11:31 BP 150/75 06/14/22 11:31 Pulse Ox 94 06/14/22 11:31 O2 Del Method 06/14/22 11:31 O2 Flow Rate 3 06/12/22 14:12 06/13/22 06/14/22 06/14/22 22:59 06:59 14:59 Intake Total 720 / 1138 350 / 1488 540 / 540 Balance 720 / -1162 350 / -812 540 / 540 Weight last 48 hrs Weight 95.209 kg Weight 93.2 kg Weight 94.71 kg Weight 98 kg Physical Exam Const: COMMON NORMALS: no acute distress and patient oriented x3 Resp: COMMON NORMALS: normal respiratory effort, No retractions, No use of accessory muscles and clear to auscultation bilaterally AUSCULTATION: clear to auscultation bilaterally Cardio: COMMON NORMALS: regular rate, regular rhythm, S1 normal heart sound present and S2 normal heart sound present RATE: regular rate RHYTHM: regular rhythm HEART SOUNDS: S1 normal heart sound present and S2 normal heart sound present GI: COMMON NORMALS: Normal to inspection, nondistended, normoactive bowel sounds present, non-tender, No hepatosplenomegaly present and no masses PALPATION: Yes No hepatosplenomegaly present Extremity: COMMON NORMALS: no pedal edema Neuro: COMMON NORMALS: patient oriented x3 Psych: COMMON NORMALS: mental status grossly normal Data : 06/14/22 04:55 06/14/22 04:55 Micro: Microbiology 06/12/22 20:11 Blood Culture - Preliminary Blood NEGATIVE TO DATE 06/12/22 20:12 Blood Culture - Preliminary Blood NEGATIVE TO DATE 06/12/22 15:30 Blood Culture - Preliminary Blood NEGATIVE TO DATE 06/12/22 15:15 Blood Culture - Preliminary Blood NEGATIVE TO DATE A&P Assessment and plan (1) Sepsis: Sepsis, suspected soft tissue infection, wound infection, cellulitis left lower extremity, which is diffusely erythematous, warmer than the right. However, cannot exclude other cause, and recently also had bacteremia MSSA in October of this year for which completed 6 weeks of antibiotic therapy. Now off oxygen -CT of the chest did not show any significant focal pneumonia or any acute infiltrates, but there is a potential aspiration (2) Hypoxia: Resolved Newly requiring 2 L nasal cannula oxygen, not previously on oxygen. Tachycardia. Also CT angiogram for PE. Reports history of rash, hives with iodinated contrast dye, will give dose of Solu-Medrol. Likely fluid overload from pulmonary edema, fluid overload Continue empirically ceftriaxone, azithromycin, although does not have obvious pneumonia. Mild fluid overload, will get extra dialysis, but cautiously as does not appear severely overloaded. Complete troponin, EKG series. So far without rise. High-sensitivity troponin with moderate elevation, without delta, in setting of ESRD, likely some demand ischemia. Check COVID-19 PCR. Rapid was negative. Will have speech therapy evaluate patient for possible aspiration (3) Wound infection: Continue ceftriaxone, continue Zyvox Wound care: Foam dressing change daily on wounds on upper and lower buttock. Right sánchez: Medihoney, PolyMem Ag to any open areas, ABD pad. Ulcer of left lower leg: Medihoney, PolyMem Ag, cover dressing. Second toe of left foot wound: Dakin's wet-to-dry, (small Kerlix to wrap each toe individually), Eric wraps. Open wound right foot: Dakin's wet-to-dry twice daily, cover dressing (small Kerlix to wrap each toe individually). (4) Right hip joint effusion: he following discussion was made in the presence of Dr. Blue, and nursing staff, patient's daughter is at bedside -Dr. Blue discussed patient's CT scan results, his discussion with radiology, ultrasound report, and history of CT of the hip imaging, including tagged white blood cell scan -Patient has been told that she has severe degenerative changes in her right hip, and surgeons have declined in the past to do any intervention -However given her CT findings of possible fluid collection, the concern was for possible septic joint, given her prior history of staph aureus bacteremia without a clear etiology -Patient's daughter tells me that she has received chronic antibiotic therapy, she also was transferred up to [facility] for chronic antibiotic therapy, source was unknown, but she received 6 weeks of antibiotic therapy since that she has been doing okay -Currently her ESR is minimally elevated, CRP and Pro-Pedro minimally elevated, blood cultures remain unremarkable, she was afebrile, white blood cell count has come down, the likely source of elevated white blood cell count is her cellulitis -However there is always a possibility that this could be an indolent infection although fairly unlikely but the only way to know for sure is to do a needle sample of joint fluid -However after discussion with radiology, discussed with Dr. Blue, the thought was is that there is really no fluid there to collect -However Dr. Blue gave the opportunity for potential joint sampling to patient, to completely rule out the fact that he might be a septic joint, to exhaust all possibilities however there is risks of the procedure and if it is a dry trap we could hang our hat since they we have done everything -After discussing the risks and benefits of all options, patient and daughter voiced understanding, all questions answered they declined joint sampling and arthrocentesis for now -We will continue to monitor blood cultures, if indeed she does have recurrent bacteremia in the future, then we can certainly have a good reason to pursue sampling and other options include MRI of the hip or repeating a bone scan -Patient voices any, all questions answered (5) Acute respiratory failure with hypoxemia: - Likely fluid overload, pulmonary edema -Continue dialysis, clinically improving off oxygen Plan ESRD: On HD MWF, right arm fistula. History of MSSA bacteremia: In October at that time thought to be secondary to possibly contamination of the fistula, was discharged with 6 weeks of antibiotics. Had a tagged white blood cell scan which was unremarkable blood cultures are collected. 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 Wound care. Telfa, gauze dressing BID on L hand. Follow-up with dermatology. Anemia DM2 GERD HTN Hypothyroidism Morbid recently Attestations Medical Necessity Statement*: Patient requires position for fluid overload, requiring dialysis Coding Level of Care Code Acute Master Certified Rv Technician for g Fwd Diagnoses Sepsis A41.9 Hypoxia R09.02 Wound infection T14.8XXA; L08.9 Right hip joint effusion M25.451 Acute respiratory failure with hypoxemia J96.01
--- NOTE | 2022-06-14 14:28 | PM.PN ---
Subjective Subjective: has no new complaints feeling better Vitals/I&O/Wt Last Vital Signs Temp 98.2 F 06/14/22 11:31 Pulse 60 06/14/22 11:31 Resp 18 06/14/22 11:31 BP 150/75 06/14/22 11:31 Pulse Ox 94 06/14/22 11:31 O2 Del Method 06/14/22 11:31 O2 Flow Rate 3 06/12/22 14:12 06/13/22 06/14/22 06/14/22 22:59 06:59 14:59 Intake Total 720 / 1138 350 / 1488 540 / 540 Balance 720 / -1162 350 / -812 540 / 540 Weight last 48 hrs Weight 95.209 kg Weight 93.2 kg Weight 94.71 kg Weight 98 kg Physical Exam Const: COMMON NORMALS: no acute distress and alert Extremity: NARRATIVE EXTREMITY EXAM: right forearm AVG - no signs of infection, + thrill per RN + chronic bruising right arm Neuro: SENSORIUM/ORIENTATION: Yes alert Data : 06/14/22 04:55 06/14/22 04:55 Other Labs: Ca 9.3, phos 4.0, Mg 2.1 Micro: Microbiology 06/12/22 20:11 Blood Culture - Preliminary Blood NEGATIVE TO DATE 06/12/22 20:12 Blood Culture - Preliminary Blood NEGATIVE TO DATE 06/12/22 15:30 Blood Culture - Preliminary Blood NEGATIVE TO DATE 06/12/22 15:15 Blood Culture - Preliminary Blood NEGATIVE TO DATE A&P Assessment and plan (1) ESRD on dialysis: seen via telemedicine with assistance of RN at bedside 1. ESRD- HD MWF. HD tomorrow, 3h, 2L UF, 3K bath. No IVs, BPs blood draws right arm 2. Mild hypercalcemia, resolved 3. Anemia, will give epogen at dialysis Plan see above Attestations Medical Necessity Statement*: per primary service Time Spent in Patient Care: 16 - 35 minutes Coding Level of Care Code Acute Tug Boat Engineer for Chg Fwd Diagnoses ESRD on dialysis N18.6; Z99.2
--- NOTE | 2022-06-14 15:04 | PM.PN ---
Subjective Subjective: Patient seen and examined this morning had detailed discussion with patient as well as daughter about my discussion with the hospitalist as well as radiologist. This point time patient agreed to hold off on any further intervention pertaining to right hip aspiration. Patient is recovering well with IV antibiotics her white blood cell count has normalized. She is doing much better. This point no further orthopedic surgical intervention required at this time. Patient can follow-up with me on an as-needed basis. Vitals/I&O/Wt Last Vital Signs Temp 98.2 F 06/14/22 11:31 Pulse 60 06/14/22 11:31 Resp 18 06/14/22 11:31 BP 150/75 06/14/22 11:31 Pulse Ox 94 06/14/22 11:31 O2 Del Method 06/14/22 11:31 O2 Flow Rate 3 06/12/22 14:12 06/14/22 06/14/22 06/14/22 06:59 14:59 22:59 Intake Total 350 / 1488 540 / 540 Balance 350 / -812 540 / 540 Weight last 48 hrs Weight 209 lb 14.4 oz Weight 205 lb 7.533 oz Weight 208 lb 12.8 oz Weight 216 lb 0.848 oz Physical Exam Narrative: Patient resting comfortably in bed tenderness to palpation of the right hip. Dressings in place to bilateral lower extremities. She is able to wiggle toes plantarflex and dorsiflex ankle. Data : 06/14/22 04:55 06/14/22 04:55 Micro: Microbiology 06/12/22 20:11 Blood Culture - Preliminary Blood NEGATIVE TO DATE 06/12/22 20:12 Blood Culture - Preliminary Blood NEGATIVE TO DATE 06/12/22 15:30 Blood Culture - Preliminary Blood NEGATIVE TO DATE 06/12/22 15:15 Blood Culture - Preliminary Blood NEGATIVE TO DATE A&P Assessment and plan (1) Degenerative joint disease of right hip: Plan MDM: Dacia villalobos 86-year-old female who is being worked up for sepsis of unknown origin. On imaging initially was found possible complex effusion of the right hip with severe degenerative changes however further review of imaging shows these changes have been there since 2018. Had a long discussion with Dr. Dillon as well as Dr. Davis the interventional radiologist. Per her recommendations there was actually no drainable parable fluid at the right hip and this is significant amount of scar due to the chronic degenerative changes and erosive changes that have occurred to the right hip which she states has been there for quite some time and has previously stated has had multiple CT scans years prior that showed these changes. A tagged white blood cell count scan showed no inflammation just several months ago to the right hip. At this point time Dr. Davis felt as though thought an aspiration would not yield much information and ultimately in my opinion I do feel as though this has been a chronic ongoing scenario and not an acute septic arthritis picture. At this point time we agreed that we will discussed with patient. As result I discussed with patient as well as her daughter this morning about our discussion and that ultimately there really is no true appreciable drainable fluid and if this is the scenario of an likely this is not her infectious source. When having this discussion I left it up to the patient and she ultimately thought there was no merit in did not want to proceed with any further joint aspiration. This point time no further orthopedic surgical intervention. We will follow patient peripherally. Patient will have my office contact information if they would like to follow-up on an as-needed basis. They do have an established Dr. Galindo orthopedic surgeon in [place] and have a scheduled visit with him here soon. Patient and daughter understand agree with current plan. All questions answered. Attestations Medical Necessity Statement*: Patient had sepsis of unknown origin requiring hospitalization IV antibiotics treatment. Coding Level of Care Code Acute Needle Felt Making Machine Operator for Kasi [place] Diagnoses Degenerative joint disease of right hip M16.11
[2022-06-14 15:52] VITALS: BP 146/73; PULSE 70; RESP 17; TEMP 36.4; O2SAT 92
[2022-06-14 20:00] VITALS: BP 144/69; PULSE 66; RESP 17; TEMP 36.5; O2SAT 96
[2022-06-14] MEDS: azithromycin 250 MG in sodium chloride 0.9% 250 ML IV (20:16)
[2022-06-15] VITALS (7 sets, daily range): BP systolic 150–171; BP diastolic 59–75; PULSE 61–68; RESP 16–17; TEMP 36.1–36.8; O2SAT 91–95; BMI 37.3
[2022-06-15] MEDS: piperacillin-tazobactam 3.375 GM in sodium chloride 0.9% (plus) 50 ML IV (02:25)
[2022-06-15] MEDS: TRAMadol 50 mg Tablet PO ×2 (03:34→10:48)
[2022-06-15] MEDS: acetaminophen 325 mg Tablet 650 MG PO ×2 (03:34→10:49)
[2022-06-15 04:37] LABS: Basophils % 0.3 %; Eosinophils # 0.2 10^3/uL (0.0-0.8); Eosinophils % 2.4 %; Hematocrit 33.2 % (37.0-47.0); Hemoglobin 10.4 g/dL (11.5-15.3); Lymphocytes # 0.9 10^3/uL (0.8-4.8); Lymphocytes % 11.6 %; Mean Corpuscular HGB Conc 31.3 g/dL (30.0-36.0); Mean Corpuscular Hemoglobin 29.2 pg (28.0-34.0); Mean Corpuscular Volume 93.3 fl (81-99); Mean Platelet Volume 10.6 fL (7.4-10.4); Monocytes # 0.8 10^3/uL (0.2-0.9); Monocytes % 11.2 %; Neutrophils # 5.51 10^3/uL (1.8-7.7); Nucleated Red Blood Cells % 0 %; Platelet Count 221 10^3/cmm (130-400); Red Blood Count 3.56 10^6/uL (4.1-5.3); Red Cell Distribution Width 17.8 % (12.1-15.1); White Blood Count 7.4 10^3/uL (4.0-10.0)
[2022-06-15 05:01] LABS: Alanine Aminotransferase 14 U/L (0-33); Alkaline Phosphatase 60 U/L (35-105); Anion Gap 20.8 (5-19); Aspartate Amino Transferase 13 U/L (0-32); Blood Urea Nitrogen 39 mg/dL (8-23); Calcium 9.2 mg/dL (8.5-10.5); Carbon Dioxide 27 mmol/L (22-29); Chloride 93 mmol/L (98-107); Globulin 2.6 g/dL (1.3-4.6); Glucose 112 mg/dL (65-115); Magnesium 2.1 mg/dL (1.7-2.3); Osmolality Calculated 294 mOsm/kg (285-295); Phosphorus 4.4 mg/dL (2.5-4.5); Potassium 3.8 mmol/L (3.5-5.1); Sodium 137 mmol/L (136-145); Total Bilirubin 0.4 mg/dL (0.15-1.2); Total Protein 5.6 g/dL (6.6-8.7)
[2022-06-15 05:17] LABS: SARS Covid-2 Antigen negative (Negative)
[2022-06-15] MEDS: levothyroxine 50 mcg Tablet PO (08:29)
[2022-06-15] MEDS: metoclopramide 10 mg Tablet 5 MG PO (08:29)
[2022-06-15] MEDS: docusate sodium 100 mg Capsule PO (08:30)
[2022-06-15] MEDS: aspirin 81 mg EC Tablet PO (08:30)
[2022-06-15] MEDS: b-complex-vitamin c Tablet 1 EACH PO (08:30)
[2022-06-15] MEDS: pantoprazole DR 40 mg Tablet PO (08:30)
--- NOTE | 2022-06-15 12:40 | P.DS_ITS ---
Discharge Providers Date of Admission: 06/12/22 15:33 Date of Discharge: June 15, 2022 Attending Provider at Admission: Will Gomes Attending Provider at Discharge: Kristofer Dillon MD Primary Care Provider: Char Parikh MD Diagnoses at Discharge Discharge Diagnosis (1) Degenerative joint disease of right hip: Status: Acute Reason for Visit Reason for Visit: SOB Hospital Course Hospital Course This is a 86-year-old female with a past medical history of end-stage renal disease on hemodialysis, history of recurrent MSSA bacteremia without a clear etiology completed 6 weeks of IV antibiotics through [facility] in [place], anemia chronic disease, anxiety, noninsulin-dependent type 2 diabetes mellitus, GERD, hypertension, hypothyroidism, history of morbid obesity who presents to [facility] due to shortness of breath, and feeling unwell For her shortness of breath patient was admitted to [facility] for shortness of breath related to diastolic CHF, bilateral pulmonary edema, bilateral extremity edema, received hemodialysis as inpatient, clinically improved, clinically improved on room air, shortness of breath improved, discharge with close follow-up with dialysis as outpatient Patient was also found to have bilateral lower extremity cellulitis, which is likely source of her leukocytosis, she received broad-spectrum antibiotic therapy, clinically improved, discharged on 3 remaining days of Augmentin and Zyvox Patient CT scan of the abdomen pelvis showed 2. Right femoral head is severely diminutive and flattened with severe degenerative changes across the residual right hip joint. There is a complex right hip joint effusion. Internal complexity raises concern for a septic joint effusion. -She has a history of recurrent MSSA bacteremia -She has received 2 courses of IV antibiotics for 6 weeks, last being a few months ago through [facility] -They also did an extensive work-up without finding a clear etiology behind the bacteremia -Here her blood cultures have been unremarkable for 48 hours, she remains afebrile, no significant inflammatory marker elevation, -She is chronically had right hip pain, she has seen multiple surgeons for evaluation however she was deemed a not an optimal candidate for any surgical intervention -Dr. Blue discussed patient's CT scan results, his discussion with radiology, ultrasound report, and history of CT of the hip imaging, including tagged white blood cell scan -Patient has been told that she has severe degenerative changes in her right hip, and surgeons have declined in the past to do any intervention -However given her CT findings of possible fluid collection, the concern was for possible septic joint, given her prior history of staph aureus bacteremia without a clear etiology -Patient's daughter tells me that she has received chronic antibiotic therapy, she also was transferred up to [facility] for chronic antibiotic therapy, source was unknown, but she received 6 weeks of antibiotic therapy since that she has been doing okay -Currently her ESR is minimally elevated, CRP and Pro-Pedro minimally elevated, blood cultures remain unremarkable, she was afebrile, white blood cell count has come down, the likely source of elevated white blood cell count is her cellulitis -However there is always a possibility that this could be an indolent infection although fairly unlikely but the only way to know for sure is to do a needle sample of joint fluid -However after discussion with radiology, discussed with Dr. Blue, the thought was is that there is really no fluid there to collect -However Dr. Blue gave the opportunity for potential joint sampling to patient, to completely rule out the fact that he might be a septic joint, to exhaust all possibilities however there is risks of the procedure and if it is a dry trap we could hang our hat since they we have done everything -After discussing the risks and benefits of all options, patient and daughter voiced understanding, all questions answered they declined joint sampling and arthrocentesis for now -Although cultures have been unremarkable for the last 48 hours, if indeed she does have recurrent bacteremia in the future, then we can certainly have a good reason to pursue sampling and other options include MRI of the hip or repeating a bone scan -Patient voiced understanding, all questions answered, agreed to proceed with plan -Patient remained afebrile, clinically improving, discharged to local [facility] Physical Exam Const: COMMON NORMALS: no acute distress and patient oriented x3 Resp: COMMON NORMALS: normal respiratory effort, No retractions, No use of accessory muscles and clear to auscultation bilaterally AUSCULTATION: clear to auscultation bilaterally Cardio: COMMON NORMALS: regular rate, regular rhythm, S1 normal heart sound present and S2 normal heart sound present RATE: regular rate RHYTHM: regular rhythm HEART SOUNDS: S1 normal heart sound present and S2 normal heart sound present GI: COMMON NORMALS: Normal to inspection, nondistended, normoactive bowel sounds present, non-tender and no masses Extremity: COMMON NORMALS: no pedal edema Neuro: COMMON NORMALS: patient oriented x3 Psych: COMMON NORMALS: mental status grossly normal Discharge Data Studies Completed and Pending Completed Studies During Hospitalization Category Date Time Status CT abdomen pelvis wo con [id number] Stat Cat Scan 06/12/22 16:54 Completed CTA chest [CT angio chest PE protcl [id number]] Stat Cat Scan 06/12/22 16:39 Completed XR chest 1V portable [id number] Stat Exams 06/12/22 14:16 [place] [id number] Routine Ultrasound 06/13/22 22:04 Completed US abdomen limited [id number] Routine Ultrasound 06/13/22 22:04 Completed US soft tissue/extremity [id number] Routine Ultrasound 06/13/22 Completed Pending at discharge Category Date Time Status Blood Culture Stat Lab 06/12/22 15:15 Results Blood Culture Stat Lab 06/12/22 20:12 Results Cyto Order Verification Routine Lab 06/12/22 22:04 Ordered Radiology Impressions Chest X-Ray 06/12/22 14:16 IMPRESSION: Small volume pleural effusions, left greater than right. Chest CTA 06/12/22 16:39 IMPRESSION: 1. Cardiomegaly. 2. There are moderate bilateral pleural effusions with adjacent compressive atelectasis and or pneumonia. In combination with cardiomegaly, findings are consistent with congestive heart failure. 3. Multivessel atherosclerotic disease which involves the coronary arteries. 4. Generalized osteopenia. Abdomen/Pelvis CT 06/12/22 16:54 IMPRESSION: 1. Cardiomegaly with bilateral pleural effusions consistent with congestive heart failure. There is associated soft tissue anasarca. 2. Right femoral head is severely diminutive and flattened with severe degenerative changes across the residual right hip joint. There is a complex right hip joint effusion. Internal complexity raises concern for a septic joint effusion. 3. Multivessel atherosclerotic disease which involves the coronary arteries. ADDENDUM: 06/12/221918 CRITICAL RESULT: The study was personally discussed on the telephone with Dr Yuan on 06/12/2022 7:17 PM CDT. The results were understood and acknowledged. Soft Tissue Ultrasound 06/13/22 00:00 IMPRESSION: No soft tissue fluid collection identified by ultrasound. Abdomen Ultrasound 06/13/22 22:04 IMPRESSION: 1. Mild hepatomegaly with changes of cirrhosis. 2. Prior cholecystectomy. 3. RIGHT kidney is not identified. Suspect severe chronic medical renal disease. Laboratory Results WBC 7.4 10^3/uL (4.0-10.0) 06/15/22 04:12 RBC 3.56 10^6/uL (4.1-5.3) L 06/15/22 04:12 Hgb 10.4 g/dL (11.5-15.3) L 06/15/22 04:12 Hct 33.2 % (37.0-47.0) L 06/15/22 04:12 MCV 93.3 fl (81-99) 06/15/22 04:12 MCH 29.2 pg (28.0-34.0) 06/15/22 04:12 MCHC 31.3 g/dL (30.0-36.0) 06/15/22 04:12 RDW 17.8 % (12.1-15.1) H 06/15/22 04:12 Plt Count 221 10^3/cmm (130-400) 06/15/22 04:12 MPV 10.6 fL (7.4-10.4) H 06/15/22 04:12 Neut % (Auto) 74.0 % 06/15/22 04:12 Lymph % (Auto) 11.6 % 06/15/22 04:12 Cochran % (Auto) 11.2 % 06/15/22 04:12 Eos % (Auto) 2.4 % 06/15/22 04:12 Baso % (Auto) 0.3 % 06/15/22 04:12 Neut # (Auto) 5.51 10^3/uL (1.8-7.7) 06/15/22 04:12 Lymph # (Auto) 0.9 10^3/uL (0.8-4.8) 06/15/22 04:12 Cochran # (Auto) 0.8 10^3/uL (0.2-0.9) 06/15/22 04:12 Eos # (Auto) 0.2 10^3/uL (0.0-0.8) 06/15/22 04:12 Baso # (Auto) 0.0 10^3/uL (0.0-0.1) 06/15/22 04:12 Nucleated RBC % (auto) 0 % 06/15/22 04:12 Nucleated RBCs # 0.0 /100WBC 06/15/22 04:12 ESR 8 mm/hr (0-15) 06/13/22 04:30 PT 14.30 SECONDS (12.1-14.9) 06/12/22 14:13 INR 1.08 (0.8-1.2) 06/12/22 14:13 Specimen Type Arterial 06/12/22 16:50 Sample Site Brachial, left 06/12/22 16:50 ABG pH 7.48 (7.35-7.45) H 06/12/22 16:50 ABG pCO2 38.7 mmHg (35-45) 06/12/22 16:50 ABG pO2 70.4 mmHg (80.0-100.0) L 06/12/22 16:50 ABG HCO3 28.8 mmol/L (22-26) H 06/12/22 16:50 ABG O2 Saturation 92.2 06/12/22 16:50 ABG Base Excess 4.9 mmol/L (-2.0-2.0) H 06/12/22 16:50 Ez Test N/a 06/12/22 16:50 A-a O2 Gradient 14.4 mmHg (5-10) H 06/12/22 16:50 Hematocrit 31.8 % (37-47) L 06/12/22 16:50 Hgb O2 Saturation 91.2 % (95-100) L 06/12/22 16:50 Carboxyhemoglobin 0.4 %THgb (0.4-20.1) 06/12/22 16:50 Methemoglobin 0.6 % (0.4-1.5) 06/12/22 16:50 Total Hemoglobin 10.4 g/dL (12-16) L 06/12/22 16:50 Sodium 137.0 mmol/L (131-143) 06/12/22 16:50 Potassium 4.9 mmol/L (3.5-5.0) 06/12/22 16:50 Glucose 128.0 mg/dL (70-115) H 06/12/22 16:50 Ionized Calcium 1.2 mmol/L (1.1-1.4) 06/12/22 16:50 O2 Delivery Device Nc 06/12/22 16:50 O2 Liters/Min 3.0 % 06/12/22 16:50 FiO2 32.0 % 06/12/22 16:50 Performance Improvement Director ID Ed 06/12/22 16:50 Sodium 137 mmol/L (136-145) 06/15/22 04:12 Potassium 3.8 mmol/L (3.5-5.1) 06/15/22 04:12 Chloride 93 mmol/L (98-107) L 06/15/22 04:12 Carbon Dioxide 27 mmol/L (22-29) 06/15/22 04:12 Anion Gap 20.8 (5-19) H 06/15/22 04:12 BUN 39 mg/dL (8-23) H 06/15/22 04:12 Creatinine 5.0 mg/dL (0.5-0.9) H 06/15/22 04:12 GFR Calculation Not Reportable 06/15/22 04:12 Glucose 112 mg/dL (65-115) 06/15/22 04:12 Calculated Osmolality 294 mOsm/kg (285-295) 06/15/22 04:12 Lactic Acid 2.1 mmol/L (0.5-2.2) 06/12/22 17:35 Lactic Acid (Sepsis) 1.7 mmol/L (0.5-2.2) 06/12/22 20:12 Calcium 9.2 mg/dL (8.5-10.5) 06/15/22 04:12 Phosphorus 4.4 mg/dL (2.5-4.5) 06/15/22 04:12 Magnesium 2.1 mg/dL (1.7-2.3) 06/15/22 04:12 Total Bilirubin 0.4 mg/dL (0.15-1.2) 06/15/22 04:12 AST 13 U/L (0-32) 06/15/22 04:12 ALT 14 U/L (0-33) 06/15/22 04:12 Alkaline Phosphatase 60 U/L (35-105) 06/15/22 04:12 Creatine Kinase 28 U/L (26-192) 06/12/22 14:30 Troponin T Baseline 85 ng/L (0-10) H 06/12/22 14:13 Troponin T 120 Minute 80.80 ng/L (0-10) H 06/12/22 16:30 Delta Troponin T -4.20 ABS# (0-10) L 06/12/22 16:30 Troponin T Hi Sens 6Hr 82.51 ng/L (0-10) H 06/12/22 20:11 Troponin T Hi Sens 6Hr Delta -2.49 ng/L (0-12) L 06/12/22 20:11 C-Reactive Protein 90.1 mg/L (0.0-4.9) H 06/13/22 04:30 NT-Pro-B Natriuret Pep > 80652 pg/mL (0-450) H 06/12/22 14:13 Total Protein 5.6 g/dL (6.6-8.7) L 06/15/22 04:12 Albumin 3.0 g/dL (3.5-5.2) L 06/15/22 04:12 Globulin 2.6 g/dL (1.3-4.6) 06/15/22 04:12 25-OH Vitamin D Total 55 ng/mL (30-100) 06/13/22 04:30 Procalcitonin 0.63 ng/mL (0-0.5) H 06/13/22 04:30 PTH Intact 133.8 pg/mL (15-65) H 06/12/22 14:15 Calcium (PTH Intact) 10.6 mg/dL (8.5-10.5) H 06/12/22 14:15 Coronavirus 229E (PCR) Not detected (NOT DETECT) 06/13/22 04:28 Hep Bs Antigen Non-reactive (Nonreactive) 06/12/22 14:15 Hep Bs Antibody 94.3 (11.5-1000) 06/12/22 14:15 Hepatitis C Antibody Non-reactive (Nonreactive) 06/12/22 14:15 SARS-CoV-2 (PCR) Not detected (NOT DETECT) 06/13/22 04:28 SARS-CoV-2 Ag (Rapid) negative (Negative) 06/15/22 03:41 Vitals Last Vital Signs Temp 97.0 F L 06/15/22 12:33 Pulse 65 06/15/22 12:33 Resp 16 06/15/22 12:33 BP 150/59 06/15/22 12:33 Pulse Ox 95 06/15/22 07:59 O2 Del Method 06/15/22 07:59 O2 Flow Rate 3 06/12/22 14:12 Discharge Plan Discharge Patient Disposition: Home Condition: Stable Prescriptions: New cefdinir 300 mg capsule 300 mg PO BID 3 Days Qty: 6 0RF linezolid [Zyvox] 600 mg tablet 600 mg PO BID 3 Days Qty: 6 0RF Continued diphenhydramine HCl [Benadryl] 25 mg capsule 25 mg PO TID PRN (Reason: Allergy Symptoms) Rx Instructions: 2 CAPS BY MOUTH ON ETIME ONLY DURING RIDE TO [place] FOR ALLERGY TO IV DYE metoclopramide HCl [Reglan] 5 mg tablet 5 mg PO TID aspirin 81 mg Tablet,Delayed Release (Dr/Ec) 81 mg PO DAILY levothyroxine 50 mcg Tablet 50 mcg PO DAILY docusate sodium [Colace] 100 mg Capsule 100 mg PO DAILY Renal Caps 1 mg Capsule 1 cap PO DAILY polyethylene glycol 3350 [Miralax] 17 gram/dose Powder 17 g PO BEDTIME Culturelle 10 billion cell Capsule 1 cap PO DAILY cholecalciferol (vitamin D3) [Vitamin D3] 25 mcg (1,000 unit) Capsule 25 mcg PO DAILY pantoprazole [Protonix] 40 mg Tablet,Delayed Release (Dr/Ec) 40 mg PO DAILY losartan 100 mg Tablet 100 mg PO BEDTIME fluticasone propionate 50 mcg/actuation spray,suspension 50 mcg INTRANASAL BID bisacodyl 10 mg Suppository 10 mg [place] DAILY PRN (Reason: Constipation) cetirizine 10 mg Tablet 10 mg PO DAILY Tums Ultra 470 mg calcium (1,177 mg) Tablet,Chewable 1,410 mg PO TID Rx Instructions: TAKE THREE TABLETS BY MOUTH THREE TIMES DAILY metoclopramide HCl 5 mg Tablet 5 mg PO BEDTIME miconazole nitrate 2 % Powder 1 applic TOPICAL QID PRN (Reason: Rash for under folds) Rx Instructions: May keep at the bedside. tramadol 50 mg Tablet 50 mg PO Q6H PRN (Reason: Pain) acetaminophen 500 mg Tablet 500 mg PO Q6H PRN (Reason: Pain) Rx Instructions: Take by mouth every six hours with Tramadol for pain. Dakin's Solution 0.125 % Solution 1 irrig TOPICAL DAILY Rx Instructions: Clean wounds to BLE with normal saline, apply medihoney to all areas except toes and on top of left foot, place Dakins WTD gauze on wounds to toes and top of left foot, cover all areas, wrap BLE with compilan guaze, change daily. diclofenac sodium 1 % Gel 4 g TOPICAL QID Rx Instructions: apply to single knee, ankle, foot; for foot includes sole/toes/top of foot Zinc Oxide Diaper Cream 1-10 % Cream 1 applic TOPICAL QID PRN (Reason: redness) Rx Instructions: May keep at the bedside. vits A and D-white pet-lanolin Ointment 1 applic TOPICAL QID PRN (Reason: reddened area) Rx Instructions: May keep at bedside. Desitin Rapid Relief 13 % Cream 1 applic TOPICAL QID PRN (Reason: redness) Rx Instructions: May keep at the bedside. fentanyl 37.5 mcg/hour Patch 72 Hour 1 patch TRANSDERMAL Q72H Changed lorazepam [Ativan] 0.5 mg tablet 0.5 mg PO DAILY PRN (Reason: agitation) Qty: 1 0RF Discontinued diphenhydramine HCl 25 mg Tablet 25 mg PO Q6H PRN (Reason: Allergy Symptoms) prednisone 50 mg Tablet See Rx Instructions .ROUTE .COMPLEX Rx Instructions: 50 mg orally ONCE A MONTH THREE TIMES A DAY START DATE: 06/27/22 END DATE: lorazepam 0.5 mg Tablet 0.5 mg PO TID PRN (Reason: Pain) Discharge Orders: Discharge Order (Routine); Ordered 06/15/22 Ordered By: Kristofer Dillon Referrals: Char Parikh MD [Primary Care Provider] - Discharge Diet: Cardiac Discharge Activity: Resume usual activity Patient Instructions: Cefdinir (By mouth), Linezolid (By mouth), Opioid Safety Activity Restrictions/Additional Instructions: - If you have any worsening mentation, or fevers please go to emergency room -Please follow-up with your regular dialysis days Discharge Attestations Time Spent in Discharge Care*: less than 30 min Status at Discharge: Cognitive status at discharge: cognitively intact , Behavioral status at discharge: cooperative , Quality Metrics Clinical Quality Measures [ No reported AMI, CVA or VTE this stay] Coding Level of Care Code Acute Chg FW FL note Diagnoses Degenerative joint disease of right hip M16.11
[2022-06-15] MEDS: fluticasone nasal spray 16gm Btl 1 SPRAY INTRANASAL (12:50)
--- NOTE | 2022-06-15 14:40 | P.PN_ITS ---
Subjective Subjective: seen after dialysis. feels well. anxious for discharge Vitals/I&O/Wt Last Vital Signs Temp 97.0 F L 06/15/22 12:33 Pulse 65 06/15/22 12:33 Resp 16 06/15/22 12:33 BP 150/59 06/15/22 12:33 Pulse Ox 95 06/15/22 07:59 O2 Del Method 06/15/22 07:59 O2 Flow Rate 3 06/12/22 14:12 06/14/22 06/15/22 06/15/22 22:59 06:59 14:59 Intake Total 720 / 1260 50 / 1310 300 / 300 Output Total 2300 / 2300 Balance 720 / 1260 50 / 1310 -2000 / -2000 Weight last 48 hrs Weight 92.7 kg Weight 95.453 kg Weight 95.209 kg Data : 06/15/22 04:12 06/15/22 04:12 A&P Assessment and plan (1) ESRD on dialysis: seen via telemedicine with assistance of RN at bedside 1. ESRD- HD MWF. Stable. No IVs, BPs blood draws right arm 2. Mild hypercalcemia, resolved 3. 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
--- NOTE | 2022-06-15 14:48 | PC.NURSE ---
called report to Zohra Lewis LPN at [facility]
== END 2022-06-15 15:45 | disposition skilled nursing facility (03) | DRG 602 ==
LOC: ER 15:36 → MEDSURG 17:58
PROVIDERS: Internal Medicine Nephrology; Admitting Provider Internal Medicine; Emergency Provider Emergency Medicine; PCP Internal Medicine; Visit Provider Family Medicine
DX: L03.116 Cellulitis of left lower limb (principal); I50.31 Acute diastolic (congestive) heart failure; N18.6 End stage renal disease; I13.2 Hypertensive heart and chronic kidney disease with heart failure and with stage 5 chronic kidney disease, or end stage renal disease; L97.528 Non-pressure chronic ulcer of other part of left foot with other specified severity; L97.428 Non-pressure chronic ulcer of left heel and midfoot with other specified severity; E11.22 Type 2 diabetes mellitus with diabetic chronic kidney disease; Z99.2 Dependence on renal dialysis; M16.11 Unilateral primary osteoarthritis, right hip; Z66 Do not resuscitate; D63.1 Anemia in chronic kidney disease; F41.9 Anxiety disorder, unspecified; K21.9 Gastro-esophageal reflux disease without esophagitis; E03.9 Hypothyroidism, unspecified; K59.00 Constipation, unspecified; E66.01 Morbid (severe) obesity due to excess calories; Z68.36 Body mass index [BMI] 36.0-36.9, adult; Z87.891 Personal history of nicotine dependence; Z85.828 Personal history of other malignant neoplasm of skin; Z79.891 Long term (current) use of opiate analgesic; Z79.82 Long term (current) use of aspirin; M25.451 Effusion, right hip; E11.621 Type 2 diabetes mellitus with foot ulcer; E11.622 Type 2 diabetes mellitus with other skin ulcer
CPT/HCPCS: 36415; 36600; 71045; 71275; 74176; 76705; 76882; 80051; 80053; 82306; 82310; 82330; 82550; 82805; 83605; 83735; 83880; 83970; 84100; 84145; 84484; 85025; 85610; 85651; 86140; 86706; 86803; 87040; 87340; 87426; 87635; 93005; 93970; 96365; 96367; 96372; 96375; 99285; J0456; J0696; J1644; J2020; J2543; J2920; J3490; J7050; J8597; Q3014; Q9967